=== PATIENT | male | born 1940 | race Caucasian/White ===

== ENCOUNTER → 2016-09-06 | Outpatient (CLI) | payer MEDICARE, OTHER ==
[~2016-09-06] MED LIST: ALLERGY SHOT; AMX500CIP PO; FEXO30TA PO; HCTZ12.5T PO; HYDR-3454 PO; LISI5TAB14 PO
--- OUTSIDE RECORDS SUMMARY | 2016-09-06 12:00 | XMS REPORT | Continuity of Care Document ---
Author Author [facility] Organization [facility] Address Unknown Phone Unavailable Care Team Providers Care Water Commissioner Name Role Phone TONA GODFREY MD PCP Insurance Providers Payer Name Policy Number Subscriber Name Relationship Wps Medicare [id number] Manolo Stacy 18 Self / Same As Patient [facility] [id number] Manolo Stacy 18 Self / Same As Patient Advance Directives Directive Response Recorded Date/Time Advance Directives No 07/16/16 10:57am Health Care Power of Vp Strategic Partnerships No 07/16/16 10:57am Organ Donor No 07/16/16 10:57am Resuscitation Status Full Code 07/16/16 10:57am Problems No problem information available. Medications Current Home Medications Medication Dose Units Route Directions Days/Qty Instructions Start Date Lisinopril (Lisinopril 5MG) 5 Mg 5 Mg Oral Daily 11/15/14 Hydrochlorothiazide 12.5 Mg 12.5 Mg Oral Daily 11/15/14 Amoxicillin 500 Mg 500 Mg Oral Four Times Daily 11/15/14 Fexofenadine Hcl 30 Mg 30 Mg Oral As Needed as needed for Congestion 11/20/14 [Allergy Shot] Weekly 11/20/14 Hydrocodone Bit/Acetaminophen 1 Each 1-2 Tab Oral Every 4-6HRS as needed for Pain 30 11/20/14 Social History Social History Problem Response Recorded Date/Time Alcohol Use Denies Use 11/20/2014 12:35pm Recreational Drug Use No 11/20/2014 12:35pm Recent Foreign Travel No 07/16/2016 10:58am Recent Infectious Disease Exposure No 07/16/2016 10:58am Sexually Transmitted Disease No 11/20/2014 12:35pm HIV/AIDS No 11/20/2014 12:35pm Sexually Transmitted Disease No 11/20/2014 12:35pm Hospital Discharge Instructions No hospital discharge instructions. Plan of Care Discharge Date 07/16/16 11:38am Instructions/Education Provided DR. ZHOU-[facility] EP[facility] INST Prescriptions See Medication Section Functional Status No functional status results. Allergies, Adverse Reactions, Alerts Allergen Type Severity Reaction Status Last Updated diphenhydramine ([id number]) Allergy Unknown SWELLING, FLUSHING, SWALLOWING PROBLEMS Active 11/15/14 Immunizations No immunization records. Vital Signs Acute Vital Signs Vital Response Date/Time Temperature (Fahrenheit) 97.3 degrees F (97.6 - 99.5) 07/16/2016 11:03am Temperature (Calculated Celsius) 36.96168 degrees C (36.4 - 37.5) 07/16/2016 11:03am Temperature Source Tympanic 07/16/2016 11:03am Pulse Rate (adult) 70 bpm (60 - 90) 07/16/2016 11:36am Respiratory Rate 16 bpm (12 - 24) 07/16/2016 11:36am O2 Sat by Pulse Oximetry 99 % (88 - 100) 07/16/2016 11:03am Blood Pressure 175/94 mm Hg 07/16/2016 11:36am Blood Pressure Mean 121 mm Hg 07/16/2016 11:03am Pain Numeric Pain Scale 3 07/16/2016 11:36am Height (Feet) 6 feet 07/16/2016 11:02am Height (Inches) 1.00 inches 07/16/2016 11:02am Height (Calculated Centimeters) 185.065862 cm 07/16/2016 11:02am Weight (Pounds) 250 pounds 07/16/2016 11:02am Weight (Ounces) 0.0 oz 07/16/2016 11:02am Weight (Calculated Grams) 711249.09 gm 07/16/2016 11:02am Weight (Calculated Kilograms) 113.731030 kilograms 07/16/2016 11:02am Calculated BMI 33.0 07/16/2016 11:02am Results No known relevant diagnostic tests, laboratory data and/or discharge summary. Procedures No known history of procedures. Encounters Encounter Location Arrival/Admit Date Discharge/Depart Date Attending Provider Departed Clinic [facility] 07/16/16 10:46am 07/16/16 11: 38am GONZALEZ ZHOU MD
--- NOTE | 2016-09-07 11:35 | ECHOCARDIOGRAPHY REPORT ---
PROCEDURE PHYSICIAN: NORTH FISHER DATE OF PROCEDURE: 09/06/2015 TWO DIMENSIONAL ECHOCARDIOGRAM REPORT PRIMARY PHYSICIAN: OTHER PHYSICIAN: REFERRING PHYSICIAN: Dr. Linn Hernández ORDERING PHYSICIAN: INDICATION FOR THE PROCEDURE: Hypertension, dyspnea. MEASUREMENTS DERIVED VALUES LV DIAMETER (LAX) NORMALS NORMALS Diastolic 3.9 (3.6-5.2) Eject. Fract. 60% (60%+/-6%) Systolic (2.3-3.9) Diastolic Vol. % Shortening (0.22-0.42) Systolic Vol. Aortic Root IVS THICKNESS Diastolic 1.2 (0.6-1.1) LVPW THICKNESS Diastolic 1.2 (0.6-1.1) LA DIAMETER Systolic 2.9 (2.1-3.7) FINDINGS: 1. Technical quality is good. 2. The left ventricle is normal in size with mild left ventricular hypertrophy noted diffusely. Systolic function appeared to be normal. Estimated ejection fraction is 60%. 3. The left atrium is normal in size. No clot or thrombus were seen within the left atrium. 4. The right atrium and right ventricle are normal in size. No clot or thrombus were seen within the right side. 5. Mitral valve is calcified with mild mitral regurgitation noted by color Doppler flow. No mitral valve prolapse. No mitral valve stenosis. Doppler across the mitral valve showed E:A reversal which is an expected finding for patient at age 75. 6. Aortic valve is trileaflet with normal opening and closing pattern. No significant aortic stenosis or regurgitation was seen. 7. Tricuspid valve is normal in morphology with mild tricuspid regurgitation noted by color Doppler flow. Doppler across tricuspid valve estimated pulmonary artery pressure of 19+ right atrial pressure. 8. Pulmonic valve is functioning normally. 9. No pericardial effusion. CONCLUSION: 1. Mild left ventricular hypertrophy with normal systolic function. Estimated ejection fraction is 60%. 2. Mild mitral and tricuspid regurgitation. 3. Estimated pulmonary artery pressure of 25 mmHg. Job ID: [id number] Dictated Date: 09/06/2016 17:27:16 Reproduction Technician Date: 09/07/2016 11:30:04 / evin
== END ==
LOC: CARD 11:57
PROVIDERS: ATTEND Internal Medicine Cardiovascular Disease
DX: I10 Essential (primary) hypertension (principal); R06.00 Dyspnea, unspecified; R53.83 Other fatigue
CPT/HCPCS: 93306

== ENCOUNTER → 2016-09-15 | Outpatient (CLI) | payer MEDICARE, OTHER ==
[~2016-09-15] VITALS: Ht 185.4 cm; Wt 111.6 kg
[~2016-09-15] MED LIST changes: +CATHETER FLUSH 10 ML SYR IV PRN; +REGADENOSON 0.4 MG/5 ML SYR (LEXISCAN) IV ONE
--- OUTSIDE RECORDS SUMMARY | 2016-09-15 12:08 | XMS REPORT | Continuity of Care Document ---
Author Author [facility] Organization [facility] Address Unknown Phone Unavailable Care Team Providers Care Sports Clerk Name Role Phone TONA GODFREY MD PCP Insurance Providers Payer Name Policy Number Subscriber Name Relationship Wps Medicare [id number] Manolo Stacy 19 Self / Same As Patient [facility] [id number] Manolo Stacy 19 Self / Same As Patient Advance Directives Directive Response Recorded Date/Time Advance Directives No 07/16/16 10:57am Health Care Power of Heel Splitter No 07/16/16 10:57am Organ Donor No 07/16/16 [...] Type Severity Reaction Status Last Updated diphenhydramine ([id number]) Allergy Unknown SWELLING, FLUSHING, SWALLOWING PROBLEMS Active 11/15/14 Immunizations No immunization records. Vital Signs Acute Vital Signs Vital Response Date/Time Temperature (Fahrenheit) 97.3 degrees F (97.6 - 99.5) 07/16/2016 11:03am Temperature (Calculated Celsius) 36.95571 degrees C (36.4 - 37.5) 07/16/2016 11:03am [...] 1.00 inches 07/16/2016 11:02am Height (Calculated Centimeters) 185.149672 cm 07/16/2016 11:02am Weight (Pounds) 250 pounds 07/16/2016 11:02am Weight (Ounces) 0.0 oz 07/16/2016 11:02am Weight (Calculated Grams) 367014.09 gm 07/16/2016 11:02am Weight (Calculated Kilograms) 113.291481 kilograms 07/16/2016 11:02am Calculated BMI 33.0 07/16/2016 11:02am Results No known relevant diagnostic tests, laboratory data and/or discharge summary. Procedures No known history of procedures. Encounters Encounter Location Arrival/Admit Date Discharge/Depart Date Attending Provider Departed Clinic [facility] 07/16/16 10:46am 07/16/16 11: 38am GONZALEZ ZHOU MD
[2016-09-15 13:12] VITALS: BP 190/94
[2016-09-15 13:16] VITALS: BP 156/80
--- NOTE | 2016-09-16 08:19 | STRESS TEST ---
PROCEDURE PHYSICIAN: NORTH FISHER DATE OF PROCEDURE: 09/15/2016 LEXISCAN MYOVIEW STRESS TEST REPORT: REFERRING PHYSICIAN: Dr. Linn Hernández DATE OF PROCEDURE: 09/15/2016. INDICATION FOR THE PROCEDURE: 1. Hypertension. 2. Shortness of breath. BASELINE HEART RATE: 72 BASELINE BLOOD PRESSURE: 119/94 BASELINE EKG: Sinus rhythm with no ischemic changes. IN SUMMARY: The patient was injected with 10.81 mCi of technetium 99 Myoview and the resting images were obtained. Then the patient received 0.4 mg of Lexiscan followed by 29.8 mCi of technetium 99 Myoview. Throughout the test, there were no EKG changes. The resting and stress images were reviewed and compared in the short axis, horizontal long axis, and vertical long axis views. Review of the images showed good radiotracer uptake with no ischemia or infarction on SPECT images. Breast attenuation affecting the quality of the images. SSS 3, SDS 1, TID value 0.95. On the gated images, the left ventricle appeared to be normal size with normal contractility. Calculated ejection fraction 69%. IN CONCLUSION: 1. The patient tolerated Lexiscan well. 2. Breast attenuation with typical female pattern. No significant ischemia or infarction on SPECT images. 3. Normal left ventricular size with normal contractility. Calculated ejection fraction 69%. Job ID: [id number] Dictated Date: 09/15/2016 18:26:55 Stationary Boiler Fireman Date: 09/16/2016 08:16:47 / frank
== END ==
LOC: CARD 12:06
PROVIDERS: ATTEND Internal Medicine Cardiovascular Disease
DX: I10 Essential (primary) hypertension (principal); R06.00 Dyspnea, unspecified; K92.9 Disease of digestive system, unspecified; R53.83 Other fatigue
CPT/HCPCS: 78452; 93017

== ENCOUNTER → 2016-09-17 | Outpatient (CLI) | payer MEDICARE, OTHER ==
[~2016-09-17] MED LIST changes: -CATHETER FLUSH 10 ML SYR IV PRN; -REGADENOSON 0.4 MG/5 ML SYR (LEXISCAN) IV ONE
--- OUTSIDE RECORDS SUMMARY | 2016-09-17 09:11 | XMS REPORT | Continuity of Care Document ---
Author Author [facility] Organization [facility] Address Unknown Phone Unavailable Care Team Providers Care Direct Marketing Coordinator Name Role Phone TONA GODFREY MD PCP Insurance Providers Payer Name Policy Number Subscriber Name Relationship Wps Medicare [id number] Manolo Stacy 19 Self / Same As Patient [facility] [id number] Manolo Stacy 19 Self / Same As Patient Advance Directives Directive Response Recorded Date/Time Advance Directives No 07/16/16 10:57am Health Care Power of Purchasing/Receiving No 07/16/16 10:57am Organ Donor No 07/16/16 [...] Type Severity Reaction Status Last Updated diphenhydramine ([id number]) Allergy Unknown SWELLING, FLUSHING, SWALLOWING PROBLEMS Active 11/15/14 Immunizations No immunization records. Vital Signs Acute Vital Signs Vital Response Date/Time Temperature (Fahrenheit) 97.3 degrees F (97.6 - 99.5) 07/16/2016 11:03am Temperature (Calculated Celsius) 36.37539 degrees C (36.4 - 37.5) 07/16/2016 11:03am [...] 1.00 inches 07/16/2016 11:02am Height (Calculated Centimeters) 185.067383 cm 07/16/2016 11:02am Weight (Pounds) 250 pounds 07/16/2016 11:02am Weight (Ounces) 0.0 oz 07/16/2016 11:02am Weight (Calculated Grams) 492424.09 gm 07/16/2016 11:02am Weight (Calculated Kilograms) 113.607536 kilograms 07/16/2016 11:02am Calculated BMI 33.0 07/16/2016 11:02am Results No known relevant diagnostic tests, laboratory data and/or discharge summary. Procedures No known history of procedures. Encounters Encounter Location Arrival/Admit Date Discharge/Depart Date Attending Provider Departed Clinic [facility] 07/16/16 10:46am 07/16/16 11: 38am GONZALEZ ZHOU MD
[2016-09-17 09:44] LABS: ALANINE AMINOTRANSFERASE 32 U/L (0-55); ANION GAP 8 MMOL/L (5-14); ASPARTATE AMINO TRANSFERASE 23 U/L (5-34); BILIRUBIN,TOTAL 0.9 MG/DL (0.1-1.0); BLOOD UREA NITROGEN 23 MG/DL (7-18); BUN/CREATININE RATIO 20; CARBON DIOXIDE 27 MMOL/L (21-32); CHLORIDE 106 MMOL/L (98-107); CHOLESTEROL 235 MG/DL (< 200); CREATININE SERUM 1.15 MG/DL (0.60-1.30); DIRECT LDL 166 MG/DL (1-129); GFR ESTIMATED > 60; GLUCOSE 116 MG/DL (70-105); POTASSIUM 4.3 MMOL/L (3.6-5.0); SODIUM 141 MMOL/L (135-145); TOTAL PROTEIN 6.7 G/DL (6.4-8.2); TRIGLYCERIDES 162 MG/DL (<150); VLDL CHOLESTEROL 32 MG/DL (5-40)
== END ==
LOC: LAB 09:08
PROVIDERS: ATTEND Internal Medicine Cardiovascular Disease
DX: I10 Essential (primary) hypertension (principal); R06.00 Dyspnea, unspecified; K92.9 Disease of digestive system, unspecified; R53.83 Other fatigue
CPT/HCPCS: 36415; 80053; 80061

== ENCOUNTER → 2016-10-01 | Outpatient (CLI) | payer MEDICARE, OTHER ==
--- OUTSIDE RECORDS SUMMARY | 2016-10-01 11:57 | XMS REPORT | Continuity of Care Document ---
Author Author [facility] Organization [facility] Address Unknown Phone Unavailable Care Team Providers Care Senior Maintenance Technician Name Role Phone TONA GODFREY MD PCP Insurance Providers Payer Name Policy Number Subscriber Name Relationship Wps Medicare [id number] Manolo Stacy 19 Self / Same As Patient [facility] [id number] Manolo Stacy 19 Self / Same As Patient Advance Directives Directive Response Recorded Date/Time Advance Directives No 07/16/16 10:57am Health Care Power of Caustic Loader No 07/16/16 10:57am Organ Donor No 07/16/16 [...] Type Severity Reaction Status Last Updated diphenhydramine ([id number]) Allergy Unknown SWELLING, FLUSHING, SWALLOWING PROBLEMS Active 11/15/14 Immunizations No immunization records. Vital Signs Acute Vital Signs Vital Response Date/Time Temperature (Fahrenheit) 97.3 degrees F (97.6 - 99.5) 07/16/2016 11:03am Temperature (Calculated Celsius) 36.83657 degrees C (36.4 - 37.5) 07/16/2016 11:03am [...] 1.00 inches 07/16/2016 11:02am Height (Calculated Centimeters) 185.413621 cm 07/16/2016 11:02am Weight (Pounds) 250 pounds 07/16/2016 11:02am Weight (Ounces) 0.0 oz 07/16/2016 11:02am Weight (Calculated Grams) 377339.09 gm 07/16/2016 11:02am Weight (Calculated Kilograms) 113.765094 kilograms 07/16/2016 11:02am Calculated BMI 33.0 07/16/2016 11:02am Results No known relevant diagnostic tests, laboratory data and/or discharge summary. Procedures No known history of procedures. Encounters Encounter Location Arrival/Admit Date Discharge/Depart Date Attending Provider Departed Clinic [facility] 07/16/16 10:46am 07/16/16 11: 38am GONZALEZ ZHOU MD
[2016-10-01] MEDS: IOHEXOL 350 MG/ML 100 ML (OMNIPAQUE 350) VIAL IV ONE (12:33)
[2016-10-01] MEDS: NS 100 ML (IVPB) BAG IV ONE (12:34)
[2016-10-01] MEDS: CATHETER FLUSH 10 ML SYR IV PRN (12:34)
--- NOTE | 2016-10-01 12:58 | Diagnostic Imaging Report ---
PROCEDURE: CT chest with contrast only. TECHNIQUE: Multiple contiguous axial images were obtained through the chest after administration of intravenous contrast. INDICATION: Shortness of breath. Mild chest pain. History of lung CA. COMPARISON: Comparison with 07/13/2011. FINDINGS: Contrast was given via the left arm. There is again noted left subclavian vein stenosis with diffuse collateral flow. The superior vena cava does opacify. There is good opacification of the aorta and pulmonary arteries. The pulmonary artery show several filling defects in the right lower lobe consistent with pulmonary emboli. Aorta appears normal. There is no mediastinal or hilar adenopathy of pathologic size. There is noted scarring in the left lung apex consistent with previous lung cancer. No masses are present. Left lower lung and right lung are clear. No pleural effusions or pericardial effusion. Bone windows show no blastic or lytic lesions. Degenerative changes noted in the thoracic spine. The adrenal glands are not enlarged. IMPRESSION: 1. 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 2. Scarring in the left lung apex unchanged. 3. Pulmonary emboli are present within the right lower lobe. CRITICAL FINDING. Report was called and faxed to Catherine at office of Dr. Hernández @ 12:54 PM/ronny. Dictated by: Dictated on workstation # [id number]
== END ==
LOC: RAD 11:54
PROVIDERS: ATTEND Family Medicine
DX: I26.99 Other pulmonary embolism without acute cor pulmonale (principal); Z85.118 Personal history of other malignant neoplasm of bronchus and lung
CPT/HCPCS: 71260

== ENCOUNTER → 2016-10-05 | Outpatient (CLI) | payer MEDICARE, OTHER ==
--- OUTSIDE RECORDS SUMMARY | 2016-10-05 08:00 | XMS REPORT | Continuity of Care Document ---
Author Author [facility] Organization [facility] Address Unknown Phone Unavailable Care Team Providers Care City Councilman Name Role Phone TONA GODFREY MD PCP Insurance Providers Payer Name Policy Number Subscriber Name Relationship Wps Medicare [id number] Manolo Stacy 19 Self / Same As Patient [facility] [id number] Manolo Stacy 19 Self / Same As Patient Advance Directives Directive Response Recorded Date/Time Advance Directives No 07/16/16 10:57am Health Care Power of First Cook No 07/16/16 10:57am Organ Donor No 07/16/16 [...] Type Severity Reaction Status Last Updated diphenhydramine ([id number]) Allergy Unknown SWELLING, FLUSHING, SWALLOWING PROBLEMS Active 11/15/14 Immunizations No immunization records. Vital Signs Acute Vital Signs Vital Response Date/Time Temperature (Fahrenheit) 97.3 degrees F (97.6 - 99.5) 07/16/2016 11:03am Temperature (Calculated Celsius) 36.26363 degrees C (36.4 - 37.5) 07/16/2016 11:03am [...] 1.00 inches 07/16/2016 11:02am Height (Calculated Centimeters) 185.452206 cm 07/16/2016 11:02am Weight (Pounds) 250 pounds 07/16/2016 11:02am Weight (Ounces) 0.0 oz 07/16/2016 11:02am Weight (Calculated Grams) 102509.09 gm 07/16/2016 11:02am Weight (Calculated Kilograms) 113.926634 kilograms 07/16/2016 11:02am Calculated BMI 33.0 07/16/2016 11:02am Results No known relevant diagnostic tests, laboratory data and/or discharge summary. Procedures No known history of procedures. Encounters Encounter Location Arrival/Admit Date Discharge/Depart Date Attending Provider Departed Clinic [facility] 07/16/16 10:46am 07/16/16 11: 38am GONZALEZ ZHOU MD
--- NOTE | 2016-10-05 09:03 | Diagnostic Imaging Report ---
INDICATION: Dyspnea, known pulmonary embolus. COMPARISON: None. TECHNIQUE: The bilateral lower extremity deep venous system was interrogated from the common femoral vein through the popliteal vein. These images were assessed for grayscale appearance, color and spectral Doppler blood flow, compression, and augmentation. FINDINGS: There is no evidence of intraluminal filling defect. Normal compression and augmentation is noted throughout. Soft tissues are unremarkable. IMPRESSION: 1. No sonographic evidence of deep venous thrombosis in the bilateral lower extremities. Dictated by: Dictated on workstation # [id number]
== END ==
LOC: RAD 07:57
PROVIDERS: ATTEND Nurse Practitioner Family
DX: I26.99 Other pulmonary embolism without acute cor pulmonale (principal)
CPT/HCPCS: 93306; 93970

== ENCOUNTER → 2016-10-05 | Outpatient (CLI) | payer MEDICARE, OTHER ==
--- OUTSIDE RECORDS SUMMARY | 2016-10-05 13:43 | XMS REPORT | Continuity of Care Document ---
Author Author [facility] Organization [facility] Address Unknown Phone Unavailable Care Team Providers Care Quality Systems Technician Name Role Phone TONA GODFREY MD PCP Insurance Providers Payer Name Policy Number Subscriber Name Relationship Wps Medicare [id number] Manolo Stacy 19 Self / Same As Patient [facility] [id number] Manolo Stacy 19 Self / Same As Patient Advance Directives Directive Response Recorded Date/Time Advance Directives No 07/16/16 10:57am Health Care Power of Nurse Receptionist No 07/16/16 10:57am Organ Donor No 07/16/16 [...] Type Severity Reaction Status Last Updated diphenhydramine ([id number]) Allergy Unknown SWELLING, FLUSHING, SWALLOWING PROBLEMS Active 11/15/14 Immunizations No immunization records. Vital Signs Acute Vital Signs Vital Response Date/Time Temperature (Fahrenheit) 97.3 degrees F (97.6 - 99.5) 07/16/2016 11:03am Temperature (Calculated Celsius) 36.85052 degrees C (36.4 - 37.5) 07/16/2016 11:03am [...] 1.00 inches 07/16/2016 11:02am Height (Calculated Centimeters) 185.608351 cm 07/16/2016 11:02am Weight (Pounds) 250 pounds 07/16/2016 11:02am Weight (Ounces) 0.0 oz 07/16/2016 11:02am Weight (Calculated Grams) 684159.09 gm 07/16/2016 11:02am Weight (Calculated Kilograms) 113.512048 kilograms 07/16/2016 11:02am Calculated BMI 33.0 07/16/2016 11:02am Results No known relevant diagnostic tests, laboratory data and/or discharge summary. Procedures No known history of procedures. Encounters Encounter Location Arrival/Admit Date Discharge/Depart Date Attending Provider Departed Clinic [facility] 07/16/16 10:46am 07/16/16 11: 38am GONZALEZ ZHOU MD
--- NOTE | 2016-10-07 07:56 | ECHOCARDIOGRAPHY REPORT ---
PROCEDURE PHYSICIAN: NORTH FISHER DATE OF PROCEDURE: 10/05/2016 TWO DIMENSIONAL ECHOCARDIOGRAM REPORT PRIMARY PHYSICIAN: OTHER PHYSICIAN: REFERRING PHYSICIAN: Dr. Hernández ORDERING PHYSICIAN: INDICATION FOR THE PROCEDURE: MEASUREMENTS DERIVED VALUES LV DIAMETER (LAX) NORMALS NORMALS Diastolic 5.7 (3.6-5.2) Eject. Fract. 60% (60%+/-6%) Systolic (2.3-3.9) Diastolic Vol. % Shortening (0.22-0.42) Systolic Vol. Aortic Root IVS THICKNESS Diastolic 1.1 (0.6-1.1) LVPW THICKNESS Diastolic 1.1 (0.6-1.1) LA DIAMETER Systolic 3.1 (2.1-3.7) FINDINGS: 1. Technical quality is good. 2. The left ventricle is normal in size with normal contractility. Systolic function appeared to be normal. Estimated ejection fraction is 60%. 3. The left atrium is normal in size. No clot or thrombus were seen within the left atrium. 4. The right atrium and right ventricle are normal in size. No signs of right ventricular volume or pressure overload. 5. Mitral valve is normal in morphology with mild mitral regurgitation noted by color Doppler flow. No mitral valve prolapse. No mitral valve stenosis. 6. Aortic valve is trileaflet with normal opening and closing pattern. No significant aortic stenosis or regurgitation was seen. 7. Tricuspid valve is normal in morphology with mild tricuspid regurgitation noted by color Doppler flow. Doppler across tricuspid valve estimated pulmonary artery pressure of 20+ right atrial pressure. 8. Pulmonic valve is functioning normally. 9. No pericardial effusion. IN CONCLUSION: 1. Normal left ventricular size and systolic function. Estimated ejection fraction 60%. 2. Mild mitral and tricuspid regurgitation. 3. Estimated pulmonary artery pressure of 25 to 30 mmHg. Job ID: [id number] Dictated Date: 10/06/2016 16:45:38 Shop Firer/Fireman Date: 10/07/2016 07:53:07 / frank
== END ==
LOC: CARD 13:39
PROVIDERS: ATTEND Nurse Practitioner Family
DX: I26.99 Other pulmonary embolism without acute cor pulmonale (principal)
CPT/HCPCS: 93306

== ENCOUNTER 2017-11-29 20:39 | Emergency (ER) | payer MEDICARE, OTHER ==
[~2017-11-29] VITALS: Ht 185.4 cm; Wt 111.1 kg
--- OUTSIDE RECORDS SUMMARY | 2017-11-29 20:49 | XMS REPORT | CCD ---
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 Name Role Phone PP Unavailable CCM Unavailable Summary Purpose Interface Exchange Insurance Providers Payer name Policy type / Coverage type Covered alliance party ID Effective Begin Date Effective End Date [employer] [employer] Medicare Part B [id number] 2017 Unknown Cigna Medicare Part B [id number] 2017 Unknown Family history Brother Diagnosis Age At Onset Hypertension Unknown Father Diagnosis Age At Onset Heart disease Unknown Mother Diagnosis Age At Onset Stroke Unknown Sister Diagnosis Age At Onset No Known Diseases N/A Social History Social History Element Codes Description Effective Dates Marital status Unknown 12/24/2014 Number of children Unknown 3 12/24/[address]: 3279329 Quit over 10 years ago 12/24/2014 Number of years using tobacco Unknown 20 - 30 Quit in 1993, smoked 1-3 packs per day for 25 years 2014 Alcohol history Unknown occasionally drinks alcohol 12/24/2014 Allergies, Adverse Reactions, Alerts Allergies, Adverse Reactions, Alerts data not found Past Medical History Illness Codes Condition Status Onset Date Resolved Date Essential (primary) hypertension ICD-9: 401.1 ICD-10: I10 Active 04/27/2016 Unknown Pain in right hip ICD- 9: 719.45 ICD-10: M25.551 Active 12/01/2016 Unknown Varicose veins of bilateral lower extremities with pain ICD-9: 454.8 ICD-10: I83.813 Active 08/19/2017 Unknown Acute laryngopharyngitis ICD-9: 465.0 ICD-10: J06.0 Active 06/30/2017 Unknown Other allergic rhinitis ICD-9: 477.8 ICD-10: J30.89 Active 12/13/2016 Unknown Other malaise ICD-9: 780.79 ICD-10: R53.81 Active 06/30/2017 Unknown Other vitamin B12 deficiency anemias ICD-9: 281.1 ICD-10: D51.8 Active 08/19/2016 Unknown Vitamin B12 deficiency anemia due to intrinsic factor deficiency ICD-9: 281.0 ICD-10: D51.0 Active 04/27/2016 Unknown Laceration without foreign body of left hand, initial encounter ICD-9: 882.0 ICD-10: S61.412A Active 03/07/2017 Unknown Other acute sinusitis ICD-9: 461.8 ICD-10: J01.80 Active 12/13/2016 Unknown Cervicalgia ICD-9: 723.1 ICD-10: M54.2 Active 12/01/2016 Unknown Other pulmonary embolism without acute cor pulmonale ICD-9: 415.19 ICD-10: I26.99 Active 10/13/2016 Unknown Pain in left hip ICD-9 : 719.45 ICD-10: M25.552 Active 12/01/2016 Unknown Pulmonary Embolus Unknown Active 10/13/2016 Unknown Gastro-esophageal reflux disease without esophagitis ICD-9: 530.81 ICD-10: K21.9 Active 09/29/2016 Unknown Benign prostatic hyperplasia with lower urinary tract symptoms ICD-9: 600.01 ICD-10: N40.1 Active 08/30/2016 Unknown Other chest pain ICD-9 : 786.52 ICD-10: R07.89 Active 09/17/2015 Unknown Cellulitis of chest wall ICD-9: 682.2 ICD-10: L03.313 Active 07/12/2016 Unknown Low back pain ICD-9: 724.2 ICD-10: M54.5 Active 05/31/2016 Unknown Pain in thoracic spine ICD-9: 724.5 ICD-10: M54.6 Active 01/12/2015 Unknown Pain in right knee ICD -9: 719.46 ICD-10: M25.561 Active 01/18/2016 Unknown Acute recurrent maxillary sinusitis ICD-9: 461.0 ICD-10: J01.01 Active 09/17/2015 Unknown Unspecified abdominal pain ICD-9: 789.09 ICD-10: R10.9 Active 01/08/2015 Unknown ACUTE BRONCHITIS ICD-9 : 466.0 Active 02/18/2015 Unknown Back pain ICD-9: 724.5 Active 01/12/2015 Unknown Dysuria ICD-9: 788.1 Active 01/08/2015 Unknown Right sided abdominal pain ICD-9: 789.09 Active 01/08/2015 Unknown Allergies Unknown Active 12/24/2014 Unknown Claudication Unknown Active 12/24/2014 Unknown Plantar fasciitis ICD- 9: 728.71 Active 12/23/2014 Unknown Problems Condition Codes Effective Dates Condition Status Essential (primary) hypertension ICD-9: 401.1 ICD-10: I10 04/27/2016 Active Pain in right hip ICD- 9: 719.45 ICD-10: M25.551 12/01/2016 Active Varicose veins of bilateral lower extremities with pain ICD-9: 454.8 ICD-10: I83.813 08/19/2017 Active Acute laryngopharyngitis ICD-9: 465.0 ICD-10: J06.0 06/30/2017 Active Other allergic rhinitis ICD-9: 477.8 ICD-10: J30.89 12/13/2016 Active Other malaise ICD-9: 780.79 ICD-10: R53.81 06/30/2017 Active Other vitamin B12 deficiency anemias ICD-9: 281.1 ICD-10: D51.8 08/19/2016 Active Vitamin B12 deficiency anemia due to intrinsic factor deficiency ICD-9: 281.0 ICD-10: D51.0 04/27/2016 Active Laceration without foreign body of left hand, initial encounter ICD-9: 882.0 ICD-10: S61.412A 03/07/2017 Active Other acute sinusitis ICD-9: 461.8 ICD-10: J01.80 12/13/2016 Active Cervicalgia ICD-9: 723.1 ICD-10: M54.2 12/01/2016 Active Other pulmonary embolism without acute cor pulmonale ICD-9: 415.19 ICD-10: I26.99 10/13/2016 Active Pain in left hip ICD-9 : 719.45 ICD-10: M25.552 12/01/2016 Active Pulmonary Embolus Unknown 10/13/2016 Active Gastro-esophageal reflux disease without esophagitis ICD-9: 530.81 ICD-10: K21.9 09/29/2016 Active Benign prostatic hyperplasia with lower urinary tract symptoms ICD-9: 600.01 ICD-10: N40.1 08/30/2016 Active Other chest pain ICD-9 : 786.52 ICD-10: R07.89 09/17/2015 Active Cellulitis of chest wall ICD-9: 682.2 ICD-10: L03.313 07/12/2016 Active Low back pain ICD-9: 724.2 ICD-10: M54.5 05/31/2016 Active Pain in thoracic spine ICD-9: 724.5 ICD-10: M54.6 01/12/2015 Active Pain in right knee ICD -9: 719.46 ICD-10: M25.561 01/18/2016 Active Acute recurrent maxillary sinusitis ICD-9: 461.0 ICD-10: J01.01 09/17/2015 Active Unspecified abdominal pain ICD-9: 789.09 ICD-10: R10.9 01/08/2015 Active ACUTE BRONCHITIS ICD-9 : 466.0 02/18/2015 Active Back pain ICD-9: 724.5 01/12/2015 Active Dysuria ICD-9: 788.1 01/08/2015 Active Right sided abdominal pain ICD-9: 789.09 01/08/2015 Active Allergies Unknown 12/24/2014 Active Claudication Unknown 12/24/2014 Active Plantar fasciitis ICD- 9: 728.71 12/23/2014 Active Medications Medication Codes Instructions Start Date Stop Date Status Fill Instructions Xarelto 20 mg tablet RxNorm: 8301053 1 Tablet(s) PO daily 07/0807/02/2018 Active Augmentin 500 mg-125 mg tablet RxNorm: 324802 1 Tablet(s) PO TID 07/01/2017 07/10/2017 Inactive Augmentin 500 mg-125 mg tablet RxNorm: 719118 1 Tablet(s) PO TID 07/01/2017 06/30/2017 Inactive ceftriaxone 500 mg solution for injection RxNorm: 8306231 2 Inj 06/30/2017 06/30/2017 Inactive cyanocobalamin (vit B-12) 1,000 mcg/mL injection solution RxNorm: 179630 Milliliter(s) Inj 06/22/2017 06/22/2017 Inactive Bactrim DS 800 mg-160 mg tablet RxNorm: 473551 1 Tablet(s) PO BID 06/08/2017 06/14/2017 Inactive Flomax 0.4 mg capsule RxNorm: 239788 TAKE ONE CAPSULE BY MOUTH ONCE DAILY IN THE EVENING 05/30/2017 No Stop Date Active cyanocobalamin (vit B-12) 1,000 mcg/mL injection solution RxNorm: 134130 1 Milliliter(s) Inj 04/19/2017 04/19/2017 Inactive Xarelto 20 mg tablet RxNorm: 8351787 1 Tablet(s) PO daily 04/1807/07/2017 Inactive lisinopril 5 mg tablet RxNorm: 892163 TAKE 1 TABLET EVERY DAY 04/13/2017 04/07/2018 Active hydrochlorothiazide 12.5 mg tablet RxNorm: 426353 TAKE 1 TABLET EVERY DAY 04/13/2017 04/07/2018 Active Keflex 500 mg capsule RxNorm: 586122 1 Capsule(s) PO TID 201603/13/2017 Inactive cyanocobalamin (vit B-12) 1,000 mcg/mL injection solution RxNorm: 048299 Milliliter(s) Inj 01/20/2017 01/20/2017 Inactive Keflex 500 mg capsule RxNorm: 928453 1 Capsule(s) PO TID 201612/28/2016 Inactive Kenalog 40 mg/mL suspension for injection RxNorm: 4873901 Milliliter(s) Inj 12/13/2016 12/13/2016 Inactive Xarelto 20 mg tablet RxNorm: 1612497 1 Tablet(s) PO daily 12/0104/17/2017 Inactive cyanocobalamin (vit B-12) 1,000 mcg/mL injection solution RxNorm: 747927 1 Milliliter(s) Inj 12/01/2016 12/01/2016 Inactive cyanocobalamin (vit B-12) 1,000 mcg/mL injection solution RxNorm: 876999 1 Milliliter(s) Inj 2016 2016 Inactive Bactroban Nasal 2 % ointment RxNorm: 112870 1 Application NASAL BID 11/12/2016 No Stop Date Active Bactroban Nasal 2 % ointment RxNorm: 749277 1 Application NASAL BID 10/06/2016 11/11/2016 Inactive cyanocobalamin (vit B-12) 1,000 mcg/mL injection solution RxNorm: 517798 1 Milliliter(s) Inj 09/17/2016 09/17/2016 Inactive Flomax 0.4 mg capsule RxNorm: 872257 1 Capsule(s) PO QPM 201603/27/2017 Inactive cyanocobalamin (vit B-12) 1,000 mcg/mL injection solution RxNorm: 169751 1 Milliliter(s) Inj 08/20/2016 08/20/2016 Inactive cyanocobalamin (vit B-12) 1,000 mcg/mL injection solution RxNorm: 451219 Milliliter(s) Inj 07/23/2016 07/23/2016 Inactive Keflex 500 mg capsule RxNorm: 780818 1 Capsule(s) PO TID 201507/19/2016 Inactive cyanocobalamin (vit B-12) 1,000 mcg/mL injection solution RxNorm: 423765 Milliliter(s) Inj 06/23/2016 06/23/2016 Inactive cyanocobalamin (vit B-12) 1,000 mcg/mL injection solution RxNorm: 623391 1 Milliliter(s) Inj 06/01/2016 06/01/2016 Inactive cyanocobalamin (vit B-12) 1,000 mcg/mL injection solution RxNorm: 115503 Milliliter(s) Inj 05/14/2016 05/14/2016 Inactive cyanocobalamin (vit B-12) 1,000 mcg/mL injection solution RxNorm: 528660 Milliliter(s) Inj 04/28/2016 04/28/2016 Inactive prednisone 20 mg tablet RxNorm: 384597 2 Tablet(s) PO daily 01/21/2016 Inactive One tablet in the morning and one tablet in the afternoon for 3 days lisinopril 5 mg tablet RxNorm: 430828 1 Tablet(s) PO daily 02/12/2017 Inactive hydrochlorothiazide 12.5 mg tablet RxNorm: 060981 1 Tablet(s) PO daily 11/21/2015 02/12/2017 Inactive doxycycline hyclate 100 mg tablet RxNorm: 555766 1 Tablet(s) PO BID 09/18/2015 09/24/2015 Inactive acyclovir 800 mg tablet RxNorm: 783610 1 Tablet(s) PO TID 09/0108/31/2015 Inactive acyclovir 800 mg tablet RxNorm: 394616 1 Tablet(s) PO TID 09/0109/07/2015 Inactive Ativan 0.5 mg tablet RxNorm: 576373 1 Tablet(s) PO x1 dose before MRI 08/15/2015 No Stop Date Active lisinopril 5 mg tablet RxNorm: 551688 1 Tablet(s) PO daily 11/20/2015 Inactive hydrochlorothiazide 12.5 mg tablet RxNorm: 484268 1 Tablet(s) PO daily 06/17/2015 11/20/2015 Inactive hydrochlorothiazide 12.5 mg tablet RxNorm: 586341 1 Tablet(s) PO daily 06/13/2015 06/16/2015 Inactive lisinopril 5 mg tablet RxNorm: 085180 1 Tablet(s) PO daily 06/16/2015 Inactive tramadol 50 mg tablet RxNorm: 441408 Tablet(s) PO Q6 as needed 02/25/2015 03/26/2015 Inactive 1 or 2 tabs every 6 hr as needed tramadol 50 mg tablet RxNorm: 117004 Tablet(s) PO Q6 as needed 02/25/2015 02/24/2015 Inactive 1 or 2 tabs every 6 hr as needed Culturelle 10 billion cell capsule RxNorm: 568992 1 Capsule(s) PO BID 02/19/2015 03/20/2015 Inactive Take one capsule by mouth two times per day for 2 weeks then daily doxycycline hyclate 100 mg capsule RxNorm: 8583799 1 Capsule(s) PO BID 02/19/2015 02/25/2015 Inactive prednisone 20 mg tablet RxNorm: 460489 1 Tablet(s) PO BID 02/1902/21/2015 Inactive One tablet in the morning and one tablet in the afternoon for 3 days Voltaren 1 % topical gel RxNorm: 182294 4 Gram(s) TOP QID 01/1304/27/2016 Inactive fexofenadine 180 mg tablet RxNorm: 742576 1 Tablet(s) PO daily No Start Date Active Flonase Allergy Relief nasal RxNorm: 89825 nasal No Start Date Active Lipitor 20 mg tablet RxNorm: 982648 1 Tablet(s) PO QHS No Start Date Active Vitamin B-12 ER 1,000 mcg tablet,extended release RxNorm: 181639 1 Tablet(s) PO daily No Start Date Active lisinopril 5 mg tablet RxNorm: 762913 1 Tablet(s) PO daily No Start Date 06/12/2015 Inactive Bactroban Nasal 2 % ointment RxNorm: 110200 1 Application NASAL BID No Start Date 10/05/2016 Inactive Ativan 0.5 mg tablet RxNorm: 112532 1 Tablet(s) PO x1 dose before MRI No Start Date 08/14/2015 Inactive hydrochlorothiazide 12.5 mg tablet RxNorm: 532075 1 Tablet(s) PO daily No Start Date 06/12/2015 Inactive Xarelto 20 mg tablet RxNorm: 8050200 1 Tablet(s) PO daily -After 15 mg samples are taken No Start Date 11/30/2016 Inactive Medication Administered Medication Codes Instructions Start Date Status ceftriaxone 500 mg solution for injection RxNorm: 7509298 2 06/30/2017 No longer Active cyanocobalamin (vit B-12) 1,000 mcg/mL injection solution RxNorm: 921122 Milliliter 06/22/2017 No longer Active cyanocobalamin (vit B-12) 1,000 mcg/mL injection solution RxNorm: 739465 1Milliliter 04/19/2017 No longer Active cyanocobalamin (vit B-12) 1,000 mcg/mL injection solution RxNorm: 797775 Milliliter 01/20/2017 No longer Active Kenalog 40 mg/mL suspension for injection RxNorm: 2142075 Milliliter 12/13/2016 No longer Active cyanocobalamin (vit B-12) 1,000 mcg/mL injection solution RxNorm: 675979 1Milliliter 12/01/2016 No longer Active cyanocobalamin (vit B-12) 1,000 mcg/mL injection solution RxNorm: 171132 1Milliliter 2016 No longer Active cyanocobalamin (vit B-12) 1,000 mcg/mL injection solution RxNorm: 686470 1Milliliter 09/17/2016 No longer Active cyanocobalamin (vit B-12) 1,000 mcg/mL injection solution RxNorm: 929973 1Milliliter 08/20/2016 No longer Active cyanocobalamin (vit B-12) 1,000 mcg/mL injection solution RxNorm: 590102 Milliliter 07/23/2016 No longer Active cyanocobalamin (vit B-12) 1,000 mcg/mL injection solution RxNorm: 287463 Milliliter 06/23/2016 No longer Active cyanocobalamin (vit B-12) 1,000 mcg/mL injection solution RxNorm: 410958 1Milliliter 06/01/2016 No longer Active cyanocobalamin (vit B-12) 1,000 mcg/mL injection solution RxNorm: 040566 Milliliter 05/14/2016 No longer Active cyanocobalamin (vit B-12) 1,000 mcg/mL injection solution RxNorm: 968542 Milliliter 04/28/2016 No longer Active Immunizations Vaccine Codes Date Status Influenza CVX: 141 06/25/2014 completed Pneumococcal (Adult) CVX: 33 05/25/2013 completed Assessments Condition Codes Effective Dates Varicose veins of bilateral lower extremities with pain ICD- 10: I83.813 ICD-9: 454.8 08/19/2017 Essential (primary) hypertension ICD-10: I10 ICD-9: 401.1 08/19/2017 Pain in right hip ICD-10: M25.551 ICD-9: 719.45 08/19/2017 Other malaise ICD-10: R53.81 ICD-9: 780.79 06/30/2017 Other allergic rhinitis ICD-10: J30.89 ICD-9: 477.8 06/30/2017 Acute laryngopharyngitis ICD-10: J06.0 ICD-9: 465.0 06/30/2017 Other vitamin B12 deficiency anemias ICD-10: D51.8 ICD-9: 281.1 06/22/2017 Vitamin B12 deficiency anemia due to intrinsic factor deficiency ICD-10: D51.0 ICD-9: 281.0 04/19/2017 Laceration without foreign body of left hand, initial encounter ICD-10: S61.412A ICD-9: 882.0 03/07/2017 Other acute sinusitis ICD-10: J01.80 ICD-9: 461.8 12/13/2016 Other pulmonary embolism without acute cor pulmonale ICD-10 : I26.99 ICD-9: 415.19 12/01/2016 Cervicalgia ICD-10: M54.2 ICD-9: 723.1 12/01/2016 Pain in left hip ICD-10: M25.552 ICD-9: 719.45 12/01/2016 Gastro-esophageal reflux disease without esophagitis ICD-10 : K21.9 ICD-9: 530.81 09/29/2016 Other chest pain ICD-10: R07.89 ICD-9: 786.52 08/30/2016 Benign prostatic hyperplasia with lower urinary tract symptoms ICD-10: N40.1 ICD-9: 600.01 08/30/2016 Cellulitis of chest wall ICD-10: L03.313 ICD-9: 682.2 07/13/2016 Pain in thoracic spine ICD-10: M54.6 ICD-9: 724.5 06/01/2016 Low back pain ICD-10: M54.5 ICD-9: 724.2 06/01/2016 Pain in right knee ICD-10: M25.561 ICD-9: 719.46 01/19/2016 Unspecified abdominal pain ICD-10: R10.9 ICD-9: 789.09 09/18/2015 Acute recurrent maxillary sinusitis ICD-10: J01.01 ICD-9: 461.0 09/18/2015 ACUTE BRONCHITIS ICD-9: 466.0 02/19/2015 Back pain ICD-9: 724.5 02/10/2015 Dysuria ICD-9: 788.1 01/09/2015 Right sided abdominal pain ICD-9: 789.09 01/09/2015 Plantar fasciitis ICD-9: 728.71 2014 Reason For Visit Reason For Visit Effective Dates Notes hypertension 08/19/2017 left lower leg sinus congestion 06/30/2017 sores 03/07/2017 sinus congestion 12/13/2016 hypertension 12/01/2016 hypertension 10/13/2016 hypertension 09/29/2016 hypertension 08/30/2016 rash 07/13/2016 low back pain 06/01/2016 low back pain 04/28/2016 knee pain 01/19/2016 sinus congestion 09/18/2015 back pain 09/01/2015 cough 02/19/2015 back pain 02/10/2015 back pain 01/13/2015 dysuria 01/09/2015 foot pain 12/24/2014 Results Observation Observation Code Item Item Code Result Date C A/B FLU 0238999 Influenza A Scr Negative 07/01/2017 C A/B FLU 60030705 Influenza B Scr Negative 07/01/2017 Lipid Ord30 CHOL 206 mg/dL 06/08/2017 Lipid Ord30 HDL 34.0 mg/dl 06/08/2017 Lipid Ord30 TRIG 168 mg/dL 06/08/2017 Lipid Ord30 LDL 138 mg/dL 06/08/2017 Lipid Ord30 C/HDL 6.1 Ratio 06/08/2017 Hepatic Ief820 ALBUMIN 4.1 g/dL 06/08/2017 Hepatic Ntu561 TPRO 6.7 g/dL 06/08/2017 Hepatic Lsh628 GLOB 2.6 g/dL 06/08/2017 Hepatic Exd734 A/G Ratio 1.5 Ratio 06/08/2017 Hepatic Xbt870 ALK PHOS 81 U/L 06/08/2017 Hepatic Fbd688 ALT(SGPT) 28 U/L 06/08/2017 Hepatic Fdw611 AST(SGOT) 22 U/L 06/08/2017 Hepatic Bbb635 BILI T 0.8 mg/dL 06/08/2017 Hepatic Cxn066 BILI D 0.1 mg/dL 06/08/2017 Hepatic Emf388 BILI I 0.7 mg/dL 06/08/2017 UA 57312 Specific [place] 1.020 DateTime(Free Text in ) UA 06745 PH 6.5 DateTime(Free Text in ) UA 24573 Protein neg DateTime(Free Text in ) UA 68578 Blood neg DateTime(Free Text in ) UA 22357 Bilirubin neg DateTime(Free Text in ) UA 43957 Ketones neg DateTime(Free Text in Octima) UA 02326 Urobilinogen 0.2 DateTime(Free Text in Aprima) UA 98718 Nitrite neg DateTime(Free Text in ) UA 49115 Leukocytes neg DateTime(Free Text in ) Review of Systems System Result Effective Dates Constitutional No recent illness 2017 Constitutional No fatigue 08/19/2017 Ears/Nose/Throat/Neck No dental pain Ears/Nose/Throat/Neck No dizziness 2017 Ears/Nose/Throat/Neck No dysphagia 2017 Ears/Nose/Throat/Neck No headache 2017 Ears/Nose/Throat/Neck No hearing loss Ears/Nose/Throat/Neck No nasal allergies 08/19/2017 Ears/Nose/Throat/Neck No sore throat Ears/Nose/Throat/Neck No postnasal drip 08/19/2017 Ears/Nose/Throat/Neck No sinus congestion 08/19/2017 Cardiovascular No chest pain/pressure Cardiovascular No dyspnea 08/19/2017 Cardiovascular No edema 08/19/2017 Cardiovascular No fatigue 08/19/2017 Cardiovascular hypertension 08/19/2017 Respiratory No asthma 08/19/2017 Respiratory No chest tightness 2017 Respiratory No cough 08/19/2017 Gastrointestinal No abdominal pain 2017 Gastrointestinal No gas and bloating Musculoskeletal stiffness 08/19/2017 Musculoskeletal back pain 08/19/2017 Neurologic No dizziness 08/19/2017 Neurologic No headache 08/19/2017 Neurologic No neck pain 08/19/2017 Neurologic No syncope 08/19/2017 Psychiatric No anxiety 08/19/2017 Psychiatric No depression 08/19/2017 Dermatologic No rash 08/19/2017 Dermatologic No scar 08/19/2017 Dermatologic pigmentation change 2017 Musculoskeletal joint complaint 2017 Constitutional recent illness 06/30/2017 Constitutional chills 06/30/2017 Constitutional No diaphoresis 06/30/2017 Constitutional fever 06/30/2017 Eyes No eye erythema 06/30/2017 Ears/Nose/Throat/Neck nasal allergies Ears/Nose/Throat/Neck nasal discharge Ears/Nose/Throat/Neck postnasal drip Ears/Nose/Throat/Neck sinus congestion Ears/Nose/Throat/Neck sore throat 2016 Cardiovascular No chest pain/pressure Cardiovascular No dyspnea 06/30/2017 Respiratory No chest congestion 2016 Respiratory cough 06/30/2017 Respiratory No dyspnea 06/30/2017 Gastrointestinal No constipation 2016 Gastrointestinal No diarrhea 06/30/2017 Gastrointestinal No nausea 06/30/2017 Gastrointestinal No vomiting 06/30/2017 Dermatologic No rash 06/30/2017 Neurologic No alteration of consciousness 06/30/2017 Neurologic No mental status change 2016 Dermatologic sores 03/07/2017 Constitutional No recent illness 2016 Constitutional No anorexia 03/07/2017 Constitutional No night sweats 2016 Constitutional No chills 03/07/2017 Constitutional No diaphoresis 03/07/2017 Constitutional No fatigue 03/07/2017 Constitutional No fever 03/07/2017 Constitutional No insomnia 03/07/2017 Constitutional No malaise 03/07/2017 Constitutional No weight loss 03/07/2017 Constitutional No weight gain 03/07/2017 Constitutional recent illness 12/13/2016 Constitutional No chills 12/13/2016 Constitutional No diaphoresis 12/13/2016 Constitutional No fever 12/13/2016 Eyes No eye erythema 12/13/2016 Ears/Nose/Throat/Neck nasal allergies Ears/Nose/Throat/Neck nasal discharge Ears/Nose/Throat/Neck postnasal drip Ears/Nose/Throat/Neck sinus congestion Cardiovascular No chest pain/pressure Cardiovascular No dyspnea 12/13/2016 Respiratory No chest congestion 2016 Respiratory cough 12/13/2016 Respiratory No dyspnea 12/13/2016 Gastrointestinal No abdominal pain 2016 Dermatologic No rash 12/13/2016 Neurologic No alteration of consciousness 12/13/2016 Neurologic No mental status change 2016 Eyes No blindness 12/01/2016 Cardiovascular No chest pain/pressure 09/2016 Cardiovascular No dyspnea 12/01/2016 Respiratory cough 12/01/2016 Respiratory dyspnea on exertion 2016 Gastrointestinal No abdominal pain 2016 Musculoskeletal stiffness 12/01/2016 Musculoskeletal No swelling 12/01/2016 Musculoskeletal muscle weakness 2016 Musculoskeletal myalgias 12/01/2016 Neurologic No alteration of consciousness 12/01/2016 Neurologic No mental status change 2016 Psychiatric No anxiety 12/01/2016 Psychiatric No depression 12/01/2016 Hematologic/Lymphatic pulmonary embolus 12/01/2016 Constitutional No recent illness 2016 Constitutional No fatigue 12/01/2016 Constitutional No fever 12/01/2016 Musculoskeletal joint complaint 2016 Musculoskeletal arthralgia(s) 12/01/2016 Constitutional recent illness 10/13/2016 Eyes No blindness 10/13/2016 Cardiovascular No chest pain/pressure Cardiovascular No dyspnea 10/13/2016 Respiratory cough 10/13/2016 Gastrointestinal No abdominal pain 2016 Musculoskeletal No stiffness 10/13/2016 Musculoskeletal No swelling 10/13/2016 Musculoskeletal No muscle weakness 2016 Musculoskeletal No myalgias 10/13/2016 Neurologic No alteration of consciousness 10/13/2016 Neurologic No mental status change 2016 Psychiatric No anxiety 10/13/2016 Psychiatric No depression 10/13/2016 Respiratory dyspnea on exertion 2016 Hematologic/Lymphatic pulmonary embolus 10/13/2016 Constitutional No recent illness 2016 Eyes No blindness 09/29/2016 Cardiovascular No chest pain/pressure 08/2016 Cardiovascular No dyspnea 09/29/2016 Respiratory cough 09/29/2016 Gastrointestinal No abdominal pain 2016 Neurologic No alteration of consciousness 09/29/2016 Neurologic No mental status change 2016 Psychiatric No anxiety 09/29/2016 Psychiatric No depression 09/29/2016 Musculoskeletal No stiffness 09/29/2016 Musculoskeletal No swelling 09/29/2016 Musculoskeletal No muscle weakness 2016 Musculoskeletal No myalgias 09/29/2016 Constitutional No recent illness 2016 Eyes No blindness 08/30/2016 Cardiovascular No chest pain/pressure Cardiovascular No dyspnea 08/30/2016 Respiratory No cough 08/30/2016 Gastrointestinal No abdominal pain 2016 Neurologic No alteration of consciousness 08/30/2016 Neurologic No mental status change 2016 Psychiatric No anxiety 08/30/2016 Psychiatric No depression 08/30/2016 Constitutional No recent illness 2015 Constitutional No chills 07/13/2016 Constitutional No fever 07/13/2016 Constitutional No diaphoresis 07/13/2016 Eyes No eye erythema 07/13/2016 Ears/Nose/Throat/Neck No nasal allergies 07/13/2016 Ears/Nose/Throat/Neck No nasal discharge 07/13/2016 Cardiovascular No chest pain/pressure Cardiovascular No dyspnea 07/13/2016 Respiratory No cough 07/13/2016 Respiratory No dyspnea 07/13/2016 Dermatologic sores 07/13/2016 Neurologic No alteration of consciousness 07/13/2016 Neurologic No mental status change 2015 Constitutional No recent illness 2015 Constitutional No fatigue 06/01/2016 Ears/Nose/Throat/Neck No dental pain 08/2015 Ears/Nose/Throat/Neck No dizziness 2015 Ears/Nose/Throat/Neck No dysphagia 2015 Ears/Nose/Throat/Neck No headache 2015 Ears/Nose/Throat/Neck No hearing loss 08/2015 Ears/Nose/Throat/Neck No nasal allergies 06/01/2016 Ears/Nose/Throat/Neck No sore throat 08/2015 Ears/Nose/Throat/Neck No postnasal drip 06/01/2016 Ears/Nose/Throat/Neck No sinus congestion 06/01/2016 Cardiovascular No chest pain/pressure 08/2015 Cardiovascular No dyspnea 06/01/2016 Cardiovascular No edema 06/01/2016 Cardiovascular No fatigue 06/01/2016 Cardiovascular hypertension 06/01/2016 Respiratory No asthma 06/01/2016 Respiratory No chest tightness 2015 Respiratory No cough 06/01/2016 Gastrointestinal No abdominal pain 2015 Gastrointestinal No gas and bloating 08/2015 Musculoskeletal back pain 06/01/2016 Neurologic No dizziness 06/01/2016 Neurologic No headache 06/01/2016 Neurologic No neck pain 06/01/2016 Neurologic No syncope 06/01/2016 Psychiatric No anxiety 06/01/2016 Psychiatric No depression 06/01/2016 Cardiovascular No chest pain/pressure Cardiovascular No dyspnea 04/28/2016 Cardiovascular No edema 04/28/2016 Cardiovascular No fatigue 04/28/2016 Respiratory No asthma 04/28/2016 Respiratory No chest tightness 2015 Respiratory No cough 04/28/2016 Gastrointestinal No abdominal pain 2015 Gastrointestinal No gas and bloating Musculoskeletal stiffness 04/28/2016 Musculoskeletal back pain 04/28/2016 Neurologic No dizziness 04/28/2016 Neurologic No headache 04/28/2016 Neurologic No neck pain 04/28/2016 Neurologic No syncope 04/28/2016 Psychiatric No anxiety 04/28/2016 Psychiatric No depression 04/28/2016 Constitutional No recent illness 2015 Constitutional No fatigue 04/28/2016 Ears/Nose/Throat/Neck No dental pain Ears/Nose/Throat/Neck No dizziness 2015 Ears/Nose/Throat/Neck No dysphagia 2015 Ears/Nose/Throat/Neck No headache 2015 Ears/Nose/Throat/Neck No hearing loss Ears/Nose/Throat/Neck No nasal allergies 04/28/2016 Ears/Nose/Throat/Neck No sore throat Ears/Nose/Throat/Neck No postnasal drip 04/28/2016 Ears/Nose/Throat/Neck No sinus congestion 04/28/2016 Cardiovascular hypertension 04/28/2016 Cardiovascular No chest pain/pressure Respiratory No cough 01/19/2016 Gastrointestinal No abdominal pain 2015 Psychiatric No anxiety 01/19/2016 Psychiatric No depression 01/19/2016 Constitutional No recent illness 2015 Eyes No eye erythema 01/19/2016 Cardiovascular No dyspnea 01/19/2016 Musculoskeletal joint complaint 2015 Neurologic No alteration of consciousness 01/19/2016 Neurologic No mental status change 2015 Constitutional recent illness 09/18/2015 Constitutional No anorexia 09/18/2015 Constitutional No night sweats 2015 Constitutional No chills 09/18/2015 Constitutional No diaphoresis 09/18/2015 Constitutional No fatigue 09/18/2015 Constitutional No fever 09/18/2015 Constitutional No insomnia 09/18/2015 Constitutional No malaise 09/18/2015 Constitutional No weight loss 09/18/2015 Constitutional No weight gain 09/18/2015 Eyes No eye erythema 09/18/2015 Eyes No eye discharge 09/18/2015 Ears/Nose/Throat/Neck No dizziness 2015 Ears/Nose/Throat/Neck headache 2015 Ears/Nose/Throat/Neck nasal allergies Ears/Nose/Throat/Neck nasal discharge Ears/Nose/Throat/Neck No otalgia 2015 Ears/Nose/Throat/Neck sinus congestion Ears/Nose/Throat/Neck No sore throat Cardiovascular No chest pain/pressure Cardiovascular No dyspnea 09/18/2015 Respiratory No productive sputum 2015 Respiratory No chest congestion 2015 Respiratory cough 09/18/2015 Gastrointestinal No constipation 2015 Gastrointestinal No diarrhea 09/18/2015 Gastrointestinal No vomiting 09/18/2015 Gastrointestinal No nausea 09/18/2015 Gastrointestinal abdominal pain 2015 Genitourinary/Nephrology dysuria 2015 Musculoskeletal back pain 09/18/2015 Dermatologic No rash 09/18/2015 Dermatologic No sores 09/18/2015 Neurologic No alteration of consciousness 09/18/2015 Constitutional recent illness 09/01/2015 Constitutional fatigue 09/01/2015 Cardiovascular No chest pain/pressure 08/2015 Cardiovascular No dyspnea 09/01/2015 Cardiovascular No edema 09/01/2015 Cardiovascular No fatigue 09/01/2015 Respiratory No asthma 09/01/2015 Respiratory No chest tightness 2015 Respiratory No cough 09/01/2015 Gastrointestinal No abdominal pain 2015 Gastrointestinal No gas and bloating 08/2015 Musculoskeletal stiffness 09/01/2015 Musculoskeletal back pain 09/01/2015 Neurologic No dizziness 09/01/2015 Neurologic No headache 09/01/2015 Neurologic No neck pain 09/01/2015 Neurologic No syncope 09/01/2015 Psychiatric No anxiety 09/01/2015 Psychiatric No depression 09/01/2015 Respiratory cough 02/19/2015 Respiratory productive sputum 02/19/2015 Constitutional recent illness 02/19/2015 Constitutional No chills 02/19/2015 Constitutional No night sweats 2014 Constitutional No diaphoresis 02/19/2015 Constitutional No fatigue 02/19/2015 Constitutional No fever 02/19/2015 Constitutional No insomnia 02/19/2015 Constitutional No malaise 02/19/2015 Constitutional No weight loss 02/19/2015 Constitutional No weight gain 02/19/2015 Ears/Nose/Throat/Neck sore throat 2014 Ears/Nose/Throat/Neck sinus congestion Ears/Nose/Throat/Neck postnasal drip Gastrointestinal No abdominal pain 2014 Gastrointestinal No constipation 2014 Gastrointestinal No diarrhea 02/19/2015 Cardiovascular No chest pain/pressure Cardiovascular No dyspnea 02/19/2015 Genitourinary/Nephrology No dysuria 02/19 Genitourinary/Nephrology No hematuria Musculoskeletal No back pain 02/19/2015 Dermatologic No rash 02/19/2015 Dermatologic No sores 02/19/2015 Constitutional No anorexia 02/19/2015 Ears/Nose/Throat/Neck No dizziness 2014 Ears/Nose/Throat/Neck No nasal allergies 02/19/2015 Ears/Nose/Throat/Neck No nasal discharge 02/19/2015 Ears/Nose/Throat/Neck No headache 2014 Musculoskeletal No stiffness 02/19/2015 Musculoskeletal No swelling 02/19/2015 Eyes vision change 02/19/2015 Neurologic No headache 02/19/2015 Neurologic No gait abnormality 2014 Neurologic No dizziness 02/19/2015 Neurologic No memory loss 02/19/2015 Neurologic No pain, back 02/19/2015 Psychiatric No anxiety 02/19/2015 Psychiatric No depression 02/19/2015 Constitutional recent illness 02/10/2015 Constitutional fatigue 02/10/2015 Cardiovascular No chest pain/pressure Cardiovascular No dyspnea 02/10/2015 Cardiovascular No edema 02/10/2015 Cardiovascular No fatigue 02/10/2015 Respiratory No asthma 02/10/2015 Respiratory No chest tightness 2014 Respiratory No cough 02/10/2015 Gastrointestinal No abdominal pain 2014 Gastrointestinal No gas and bloating Musculoskeletal stiffness 02/10/2015 Musculoskeletal back pain 02/10/2015 Neurologic No dizziness 02/10/2015 Neurologic No headache 02/10/2015 Neurologic No neck pain 02/10/2015 Neurologic No syncope 02/10/2015 Psychiatric No anxiety 02/10/2015 Psychiatric No depression 02/10/2015 Constitutional recent illness 01/13/2015 Constitutional fatigue 01/13/2015 Cardiovascular No chest pain/pressure Cardiovascular No dyspnea 01/13/2015 Cardiovascular No edema 01/13/2015 Cardiovascular No fatigue 01/13/2015 Respiratory No asthma 01/13/2015 Respiratory No cough 01/13/2015 Respiratory No chest tightness 2014 Gastrointestinal No abdominal pain 2014 Gastrointestinal No gas and bloating Psychiatric No anxiety 01/13/2015 Psychiatric No depression 01/13/2015 Neurologic No dizziness 01/13/2015 Neurologic No headache 01/13/2015 Neurologic No neck pain 01/13/2015 Neurologic No syncope 01/13/2015 Musculoskeletal back pain 01/13/2015 Musculoskeletal stiffness 01/13/2015 Constitutional recent illness 01/09/2015 Constitutional No fever 12/24/2014 Constitutional No chills 12/24/2014 Eyes photophobia 12/24/2014 Ears/Nose/Throat/Neck No headache 2014 Cardiovascular No chest pain/pressure Respiratory No chest tightness 2014 Respiratory No chest congestion 2014 Gastrointestinal No diarrhea 12/24/2014 Gastrointestinal No constipation 2014 Genitourinary/Nephrology No dysuria 12/24 Genitourinary/Nephrology No hematuria Genitourinary/Nephrology nocturia 2014 Musculoskeletal back pain 12/24/2014 Dermatologic No rash 12/24/2014 Dermatologic No sores 12/24/2014 Hematologic/Lymphatic No abnormal bleeding and bruising 12/24/2014 Physical Exam Exam Name System Name Item Name Status Result Effective Dates Notes Full Exam - General 1994 Constitutional general appearance Development: well developed 08/19/2017 None Full Exam - General 1994 Constitutional general appearance Stature/Body Habitus: normal body habitus 08/19/2017 None Full Exam - General 1994 Constitutional general appearance Nourishment: well nourished 08/19/2017 None Full Exam - General 1994 Constitutional general appearance Evidence of Distress: in no acute distress 08/19/2017 None Full Exam - General 1994 Eyes pupils and irises Overall: pupils equal, round, reactive to light and accomodation 08/19/2017 None Full Exam - General 1994 Respiratory auscultation Overall: breath sounds clear bilaterally 08/19/2017 None Full Exam - General 1994 Respiratory respiratory effort/rhythm Overall: no retractions 08/19/2017 None Full Exam - General 1994 Respiratory respiratory effort/rhythm Overall: normal rate 08/19/2017 None Full Exam - General 1994 Cardiovascular auscultation of heart Overall: regular rate 08/19/2017 None Full Exam - General 1994 Cardiovascular auscultation of heart Overall: normal heart sounds 08/19/2017 None Full Exam - General 1994 Abdomen abdominal exam Bowel sounds: a normal exam 08/19/2017 None Full Exam - General 1994 Abdomen abdominal exam Skin: a normal exam 08/19/2017 None Full Exam - General 1994 Abdomen abdominal exam Upper quadrant: non-tender to palpation 08/19/2017 None Full Exam - General 1994 Abdomen abdominal exam Upper quadrant: tender to palpation 08/19/2017 radiates to back Full Exam - General 1994 Abdomen abdominal exam Lower quadrant: non-tender to palpation 08/19/2017 None Full Exam - General 1994 Abdomen abdominal exam Lower quadrant: tender to palpation 08/19/2017 None Full Exam - General 1994 Abdomen abdominal exam Epigastric: non-tender to palpation 08/19/2017 None Full Exam - General 1994 Abdomen abdominal exam Suprapubic: tender to palpation 08/19/2017 None Full Exam - General 1994 Musculoskeletal digits and nails Nails: a normal exam 08/19/2017 None Full Exam - General 1994 Integument inspection of skin Overall: few scattered moles, no gross abnormalities 08/19/2017 None Full Exam - General 1994 Psychiatric orientation/consciousness Overall: oriented to person, place and time 08/19/2017 None Full Exam - General 1994 Psychiatric mood and affect Overall: normal mood and affect 08/19/2017 None Full Exam - General 1994 Musculoskeletal lower extremity Palpation - thigh: tenderness 08/19/2017 lateral hip Full Exam - ENT Constitutional general appearance Overall: well nourished 06/30/2017 None Full Exam - ENT Constitutional general appearance Overall: well developed 06/30/2017 None Full Exam - ENT Constitutional general appearance Overall: in no acute distress 06/30/2017 None Full Exam - ENT Ears/Nose/Throat otoscopic exam Overall: external auditory canals normal 06/30/2017 None Full Exam - ENT Ears/Nose/Throat otoscopic exam Left tympanic membrane: air -fluid level 06/30/2017 None Full Exam - ENT Ears/Nose/Throat otoscopic exam Right tympanic membrane: air-fluid level 06/30/2017 None Full Exam - ENT Ears/Nose/Throat lips/ teeth/gingiva Overall: benign lips 06/30/2017 None Full Exam - ENT Ears/Nose/Throat oropharynx Overall: oral mucosa clear 06/30/2017 None Full Exam - ENT Ears/Nose/Throat oropharynx Posterior Pharynx: clear post nasal drainage 06/30/2017 None Full Exam - ENT Ears/Nose/Throat oropharynx Posterior Pharynx: erythema 06/30/2017 None Full Exam - ENT Respiratory inspection Overall: no retractions 06/30/2017 None Full Exam - ENT Respiratory inspection Overall: normal rate None Full Exam - ENT Respiratory auscultation Overall: breath sounds clear bilaterally 06/30/2017 None Full Exam - ENT Cardiovascular auscultation of heart Rate: normal rate 06/30/2017 None Full Exam - ENT Cardiovascular auscultation of heart Rhythm: regular rhythm 06/30/2017 None Full Exam - ENT Lymphatic palpation of lymph nodes Overall: anterior cervical chain benign 06/30/2017 None Full Exam - ENT Lymphatic palpation of lymph nodes Overall: posterior cervical chain benign 06/30/2017 None Full Exam - ENT Neurologic mood and affect Overall: normal mood 06/30/2017 None Full Exam - ENT Neurologic mood and affect Overall: normal affect 06/30/2017 None Full Exam - ENT Neurologic orientation Overall: oriented to person, place and time 06/30/2017 None Full Exam - Dermatology Constitutional general appearance Overall: well nourished 03/07/2017 None Full Exam - Dermatology Constitutional general appearance Overall: well developed 03/07/2017 None Full Exam - Dermatology Constitutional general appearance Overall: in no acute distress 03/07/2017 None Full Exam - Dermatology Constitutional general appearance Overall: of normal body habitus 03/07/2017 None Full Exam - Dermatology Constitutional general appearance Overall: well groomed 03/07/2017 None Full Exam - Dermatology Psychiatric orientation Overall: oriented to person, place and time 03/07/2017 None Full Exam - Dermatology Integument insp & palp - left upper extremity Lesion: skin tear 03/07/2017 left hand 2cm x 1.5cm with granulation tissue and slight erythema Full Exam - ENT Constitutional general appearance Overall: well nourished 12/13/2016 None Full Exam - ENT Constitutional general appearance Overall: well developed 12/13/2016 None Full Exam - ENT Constitutional general appearance Overall: in no acute distress 12/13/2016 None Full Exam - ENT Ears/Nose/Throat otoscopic exam Overall: external auditory canals normal 12/13/2016 None Full Exam - ENT Ears/Nose/Throat otoscopic exam Left tympanic membrane: air -fluid level 12/13/2016 None Full Exam - ENT Ears/Nose/Throat otoscopic exam Right tympanic membrane: air-fluid level 12/13/2016 None Full Exam - ENT Ears/Nose/Throat nasal mucosa, septum, turbinates Drainage: clear 12/13/2016 None Full Exam - ENT Ears/Nose/Throat nasal mucosa, septum, turbinates Drainage: yellow 12/13/2016 None Full Exam - ENT Ears/Nose/Throat lips/ teeth/gingiva Overall: benign lips 12/13/2016 None Full Exam - ENT Ears/Nose/Throat oropharynx Posterior Pharynx: clear post nasal drainage 12/13/2016 None Full Exam - ENT Face and Head palpation Left maxillary sinus: tender 12/13/2016 None Full Exam - ENT Face and Head palpation Right maxillary sinus: tender 12/13/2016 None Full Exam - ENT Respiratory inspection Overall: no retractions 12/13/2016 None Full Exam - ENT Respiratory inspection Overall: normal rate None Full Exam - ENT Respiratory auscultation Overall: breath sounds clear bilaterally 12/13/2016 None Full Exam - ENT Cardiovascular auscultation of heart Overall: regular rate 12/13/2016 None Full Exam - ENT Cardiovascular auscultation of heart Overall: normal heart sounds 12/13/2016 None Full Exam - ENT Lymphatic palpation of lymph nodes Overall: anterior cervical chain benign 12/13/2016 None Full Exam - ENT Lymphatic palpation of lymph nodes Overall: posterior cervical chain benign 12/13/2016 None Full Exam - ENT Neurologic mood and affect Overall: normal mood 12/13/2016 None Full Exam - ENT Neurologic mood and affect Overall: normal affect 12/13/2016 None Full Exam - ENT Neurologic orientation Overall: oriented to person, place and time 12/13/2016 None Full Exam - General 1994 Constitutional general appearance Development: well developed 12/01/2016 None Full Exam - General 1994 Constitutional general appearance Stature/Body Habitus: normal body habitus 12/01/2016 None Full Exam - General 1994 Constitutional general appearance Nourishment: well nourished 12/01/2016 None Full Exam - General 1994 Constitutional general appearance Evidence of Distress: in no acute distress 12/01/2016 None Full Exam - General 1994 Eyes conjunctiva /eyelids Overall: conjunctiva clear 12/01/2016 None Full Exam - General 1994 Eyes conjunctiva /eyelids Overall: cornea clear 12/01/2016 None Full Exam - General 1994 Eyes conjunctiva /eyelids Overall: eyelids normal 12/01/2016 None Full Exam - General 1994 Respiratory palpation of chest Overall: normal excursion, no pain 12/01/2016 None Full Exam - General 1994 Respiratory auscultation Overall: breath sounds clear bilaterally 12/01/2016 None Full Exam - General 1994 Respiratory respiratory effort/rhythm Overall: no retractions 12/01/2016 None Full Exam - General 1994 Respiratory respiratory effort/rhythm Overall: normal rate 12/01/2016 None Full Exam - General 1994 Cardiovascular extremities Overall: no clubbing 12/01/2016 None Full Exam - General 1994 Cardiovascular auscultation of heart Overall: regular rate 12/01/2016 None Full Exam - General 1994 Cardiovascular auscultation of heart Overall: normal heart sounds 12/01/2016 None Full Exam - General 1994 Musculoskeletal lower extremity Inspection - knee: swelling 12/01/2016 None Full Exam - General 1994 Musculoskeletal lower extremity Palpation - knee: small effusion 12/01/2016 None Full Exam - General 1994 Musculoskeletal lower extremity ROM - knee: pain with flexion 12/01/2016 None Full Exam - General 1994 Integument inspection of skin Overall: no rash, lesions 12/01/2016 None Full Exam - General 1994 Psychiatric orientation/consciousness Overall: oriented to person, place and time 12/01/2016 None Full Exam - General 1994 Psychiatric mood and affect Overall: normal mood and affect 12/01/2016 None Full Exam - General 1994 Ears/Nose/Throat otoscopic exam Overall: tympanic membranes clear 12/01/2016 None Full Exam - General 1994 Ears/Nose/Throat otoscopic exam Overall: external auditory canals clear 12/01/2016 None Full Exam - General 1994 Ears/Nose/Throat oral cavity/pharynx/larynx Overall: oropharyngeal mucosa clear 12/01/2016 None Full Exam - General 1994 Ears/Nose/Throat oral cavity/pharynx/larynx Overall: no masses 12/01/2016 None Full Exam - General 1994 Ears/Nose/Throat oral cavity/pharynx/larynx Overall: oral mucosa clear 12/01/2016 None Full Exam - General 1994 Musculoskeletal head and neck Overall: head atraumatic 12/01/2016 None Full Exam - General 1994 Musculoskeletal head and neck Overall: TMJ benign 12/01/2016 None Full Exam - General 1994 Musculoskeletal head and neck Cervical Spine: tender 12/01/2016 over lateral neck on left, at insertion point of scalenes Full Exam - General 1994 Constitutional general appearance Development: well developed 10/13/2016 None Full Exam - General 1994 Constitutional general appearance Stature/Body Habitus: normal body habitus 10/13/2016 None Full Exam - General 1994 Constitutional general appearance Nourishment: well nourished 10/13/2016 None Full Exam - General 1994 Constitutional general appearance Evidence of Distress: in no acute distress 10/13/2016 None Full Exam - General 1994 Eyes conjunctiva /eyelids Overall: conjunctiva clear 10/13/2016 None Full Exam - General 1994 Eyes conjunctiva /eyelids Overall: cornea clear 10/13/2016 None Full Exam - General 1994 Eyes conjunctiva /eyelids Overall: eyelids normal 10/13/2016 None Full Exam - General 1994 Respiratory palpation of chest Overall: normal excursion, no pain 10/13/2016 None Full Exam - General 1994 Respiratory auscultation Overall: breath sounds clear bilaterally 10/13/2016 None Full Exam - General 1994 Respiratory respiratory effort/rhythm Overall: no retractions 10/13/2016 None Full Exam - General 1994 Respiratory respiratory effort/rhythm Overall: normal rate 10/13/2016 None Full Exam - General 1994 Cardiovascular extremities Overall: no clubbing 10/13/2016 None Full Exam - General 1994 Cardiovascular auscultation of heart Overall: regular rate 10/13/2016 None Full Exam - General 1994 Cardiovascular auscultation of heart Overall: normal heart sounds 10/13/2016 None Full Exam - General 1994 Musculoskeletal lower extremity Inspection - knee: swelling 10/13/2016 None Full Exam - General 1994 Musculoskeletal lower extremity Palpation - knee: small effusion 10/13/2016 None Full Exam - General 1994 Musculoskeletal lower extremity ROM - knee: pain with flexion 10/13/2016 None Full Exam - General 1994 Integument inspection of skin Overall: no rash, lesions 10/13/2016 None Full Exam - General 1994 Psychiatric orientation/consciousness Overall: oriented to person, place and time 10/13/2016 None Full Exam - General 1994 Psychiatric mood and affect Overall: normal mood and affect 10/13/2016 None Full Exam - General 1994 Constitutional general appearance Development: well developed 09/29/2016 None Full Exam - General 1994 Constitutional general appearance Stature/Body Habitus: normal body habitus 09/29/2016 None Full Exam - General 1994 Constitutional general appearance Nourishment: well nourished 09/29/2016 None Full Exam - General 1994 Constitutional general appearance Evidence of Distress: in no acute distress 09/29/2016 None Full Exam - General 1994 Eyes conjunctiva /eyelids Overall: conjunctiva clear 09/29/2016 None Full Exam - General 1994 Eyes conjunctiva /eyelids Overall: cornea clear 09/29/2016 None Full Exam - General 1994 Eyes conjunctiva /eyelids Overall: eyelids normal 09/29/2016 None Full Exam - General 1994 Respiratory palpation of chest Overall: normal excursion, no pain 09/29/2016 None Full Exam - General 1994 Respiratory auscultation Overall: breath sounds clear bilaterally 09/29/2016 None Full Exam - General 1994 Respiratory respiratory effort/rhythm Overall: no retractions 09/29/2016 None Full Exam - General 1994 Respiratory respiratory effort/rhythm Overall: normal rate 09/29/2016 None Full Exam - General 1994 Cardiovascular extremities Overall: no clubbing 09/29/2016 None Full Exam - General 1994 Cardiovascular auscultation of heart Overall: regular rate 09/29/2016 None Full Exam - General 1994 Cardiovascular auscultation of heart Overall: normal heart sounds 09/29/2016 None Full Exam - General 1995 Musculoskeletal lower extremity Inspection - knee: swelling 09/29/2016 None Full Exam - General 1994 Musculoskeletal lower extremity Palpation - knee: small effusion 09/29/2016 None Full Exam - General 1994 Musculoskeletal lower extremity ROM - knee: pain with flexion 09/29/2016 None Full Exam - General 1994 Integument inspection of skin Overall: no rash, lesions 09/29/2016 None Full Exam - General 1994 Psychiatric orientation/consciousness Overall: oriented to person, place and time 09/29/2016 None Full Exam - General 1994 Psychiatric mood and affect Overall: normal mood and affect 09/29/2016 None Full Exam - General 1994 Constitutional general appearance Development: well developed 08/30/2016 None Full Exam - General 1994 Constitutional general appearance Stature/Body Habitus: normal body habitus 08/30/2016 None Full Exam - General 1994 Constitutional general appearance Nourishment: well nourished 08/30/2016 None Full Exam - General 1994 Constitutional general appearance Evidence of Distress: in no acute distress 08/30/2016 None Full Exam - General 1994 Eyes conjunctiva /eyelids Overall: conjunctiva clear 08/30/2016 None Full Exam - General 1994 Eyes conjunctiva /eyelids Overall: cornea clear 08/30/2016 None Full Exam - General 1994 Eyes conjunctiva /eyelids Overall: eyelids normal 08/30/2016 None Full Exam - General 1994 Respiratory auscultation Overall: breath sounds clear bilaterally 08/30/2016 None Full Exam - General 1994 Respiratory respiratory effort/rhythm Overall: no retractions 08/30/2016 None Full Exam - General 1994 Respiratory respiratory effort/rhythm Overall: normal rate 08/30/2016 None Full Exam - General 1994 Cardiovascular auscultation of heart Overall: regular rate 08/30/2016 None Full Exam - General 1994 Cardiovascular auscultation of heart Overall: normal heart sounds 08/30/2016 None Full Exam - General 1994 Musculoskeletal lower extremity Inspection - knee: swelling 08/30/2016 None Full Exam - General 1994 Musculoskeletal lower extremity Palpation - knee: small effusion 08/30/2016 None Full Exam - General 1994 Musculoskeletal lower extremity ROM - knee: pain with flexion 08/30/2016 None Full Exam - General 1994 Integument inspection of skin Overall: no rash, lesions 08/30/2016 None Full Exam - General 1994 Psychiatric orientation/consciousness Overall: oriented to person, place and time 08/30/2016 None Full Exam - General 1994 Psychiatric mood and affect Overall: normal mood and affect 08/30/2016 None Full Exam - General 1994 Cardiovascular extremities Overall: no clubbing 08/30/2016 None Full Exam - General 1994 Respiratory palpation of chest Overall: normal excursion, no pain 08/30/2016 None Full Exam - Dermatology Constitutional general appearance Overall: well nourished 07/13/2016 None Full Exam - Dermatology Constitutional general appearance Overall: well developed 07/13/2016 None Full Exam - Dermatology Constitutional general appearance Overall: in no acute distress 07/13/2016 None Full Exam - Dermatology Eyes conjunctiva/ eyelids Overall: clear conjunctiva bilaterally 07/13/2016 None Full Exam - Dermatology Eyes conjunctiva/ eyelids Overall: normal eyelids 07/13/2016 None Full Exam - Dermatology Ears/Nose/Throat lips/teeth/gingiva Overall: benign lips 07/13/2016 None Full Exam - Dermatology Ears/Nose/Throat oropharynx Overall: clear oral mucosa 07/13/2016 None Full Exam - Dermatology Respiratory respiratory effort/rhythm Overall: no retractions 07/13/2016 None Full Exam - Dermatology Respiratory respiratory effort/rhythm Overall: normal rate 07/13/2016 None Full Exam - Dermatology Integument insp & palp - chest/axillae Lesion: papule 07/13/2016 None Full Exam - Dermatology Integument insp & palp - chest/axillae Location: on the mid chest 07/13/2016 None Full Exam - Dermatology Integument insp & palp - chest/axillae Color: erythematous 07/13/2016 None Full Exam - Dermatology Neurologic gait Overall: no ataxia, no unsteadiness 07/13/2016 None Full Exam - Dermatology Psychiatric orientation Overall: oriented to person, place and time 07/13/2016 None Full Exam - Dermatology Psychiatric mood and affect Overall: normal mood and affect 07/13/2016 None Full Exam - General 1994 Constitutional general appearance Development: well developed 06/01/2016 None Full Exam - General 1994 Constitutional general appearance Stature/Body Habitus: normal body habitus 06/01/2016 None Full Exam - General 1994 Constitutional general appearance Nourishment: well nourished 06/01/2016 None Full Exam - General 1994 Constitutional general appearance Evidence of Distress: in no acute distress 06/01/2016 None Full Exam - General 1994 Eyes pupils and irises Overall: pupils equal, round, reactive to light and accomodation 06/01/2016 None Full Exam - General 1994 Respiratory auscultation Overall: breath sounds clear bilaterally 06/01/2016 None Full Exam - General 1994 Respiratory respiratory effort/rhythm Overall: no retractions 06/01/2016 None Full Exam - General 1994 Respiratory respiratory effort/rhythm Overall: normal rate 06/01/2016 None Full Exam - General 1994 Cardiovascular auscultation of heart Overall: regular rate 06/01/2016 None Full Exam - General 1994 Cardiovascular auscultation of heart Overall: normal heart sounds 06/01/2016 None Full Exam - General 1994 Abdomen abdominal exam Bowel sounds: a normal exam 06/01/2016 None Full Exam - General 1994 Abdomen abdominal exam Skin: a normal exam 06/01/2016 None Full Exam - General 1994 Abdomen abdominal exam Upper quadrant: non-tender to palpation 06/01/2016 None Full Exam - General 1994 Abdomen abdominal exam Upper quadrant: tender to palpation 06/01/2016 radiates to back Full Exam - General 1994 Abdomen abdominal exam Lower quadrant: non-tender to palpation 06/01/2016 None Full Exam - General 1994 Abdomen abdominal exam Lower quadrant: tender to palpation 06/01/2016 None Full Exam - General 1994 Abdomen abdominal exam Epigastric: non-tender to palpation 06/01/2016 None Full Exam - General 1994 Abdomen abdominal exam Suprapubic: tender to palpation 06/01/2016 None Full Exam - General 1994 Musculoskeletal digits and nails Nails: a normal exam 06/01/2016 None Full Exam - General 1994 Musculoskeletal spine, ribs and pelvis Overall: ribs 06/01/2016 ttp over the lower portion of ribs on right side from spine to anterior chest Full Exam - General 1994 Integument inspection of skin Overall: few scattered moles, no gross abnormalities 06/01/2016 None Full Exam - General 1994 Psychiatric orientation/consciousness Overall: oriented to person, place and time 06/01/2016 None Full Exam - General 1994 Psychiatric mood and affect Overall: normal mood and affect 06/01/2016 None Full Exam - General 1994 Ears/Nose/Throat otoscopic exam Overall: tympanic membranes clear 06/01/2016 None Full Exam - General 1994 Ears/Nose/Throat otoscopic exam Overall: external auditory canals clear 06/01/2016 None Full Exam - General 1994 Ears/Nose/Throat oral cavity/pharynx/larynx Overall: oropharyngeal mucosa clear 06/01/2016 None Full Exam - General 1994 Ears/Nose/Throat oral cavity/pharynx/larynx Overall: no masses 06/01/2016 None Full Exam - General 1994 Ears/Nose/Throat oral cavity/pharynx/larynx Overall: oral mucosa clear 06/01/2016 None Full Exam - General 1994 Constitutional general appearance Development: well developed 04/28/2016 None Full Exam - General 1994 Constitutional general appearance Stature/Body Habitus: normal body habitus 04/28/2016 None Full Exam - General 1994 Constitutional general appearance Nourishment: well nourished 04/28/2016 None Full Exam - General 1994 Constitutional general appearance Evidence of Distress: in no acute distress 04/28/2016 None Full Exam - General 1994 Eyes pupils and irises Overall: pupils equal, round, reactive to light and accomodation 04/28/2016 None Full Exam - General 1994 Respiratory auscultation Overall: breath sounds clear bilaterally 04/28/2016 None Full Exam - General 1994 Respiratory respiratory effort/rhythm Overall: no retractions 04/28/2016 None Full Exam - General 1994 Respiratory respiratory effort/rhythm Overall: normal rate 04/28/2016 None Full Exam - General 1994 Cardiovascular auscultation of heart Overall: regular rate 04/28/2016 None Full Exam - General 1994 Cardiovascular auscultation of heart Overall: normal heart sounds 04/28/2016 None Full Exam - General 1994 Abdomen abdominal exam Bowel sounds: a normal exam 04/28/2016 None Full Exam - General 1994 Abdomen abdominal exam Skin: a normal exam 04/28/2016 None Full Exam - General 1994 Abdomen abdominal exam Upper quadrant: non-tender to palpation 04/28/2016 None Full Exam - General 1994 Abdomen abdominal exam Upper quadrant: tender to palpation 04/28/2016 radiates to back Full Exam - General 1994 Abdomen abdominal exam Lower quadrant: non-tender to palpation 04/28/2016 None Full Exam - General 1994 Abdomen abdominal exam Lower quadrant: tender to palpation 04/28/2016 None Full Exam - General 1994 Abdomen abdominal exam Epigastric: non-tender to palpation 04/28/2016 None Full Exam - General 1994 Abdomen abdominal exam Suprapubic: tender to palpation 04/28/2016 None Full Exam - General 1994 Musculoskeletal digits and nails Nails: a normal exam 04/28/2016 None Full Exam - General 1994 Musculoskeletal spine, ribs and pelvis Overall: ribs 04/28/2016 ttp over the lower portion of ribs on right side from spine to anterior chest Full Exam - General 1994 Integument inspection of skin Overall: few scattered moles, no gross abnormalities 04/28/2016 None Full Exam - General 1994 Psychiatric orientation/consciousness Overall: oriented to person, place and time 04/28/2016 None Full Exam - General 1994 Psychiatric mood and affect Overall: normal mood and affect 04/28/2016 None Full Exam - General 1994 Constitutional general appearance Development: well developed 01/19/2016 None Full Exam - General 1994 Constitutional general appearance Stature/Body Habitus: normal body habitus 01/19/2016 None Full Exam - General 1994 Constitutional general appearance Nourishment: well nourished 01/19/2016 None Full Exam - General 1994 Constitutional general appearance Evidence of Distress: in no acute distress 01/19/2016 None Full Exam - General 1994 Respiratory auscultation Overall: breath sounds clear bilaterally 01/19/2016 None Full Exam - General 1994 Respiratory respiratory effort/rhythm Overall: no retractions 01/19/2016 None Full Exam - General 1994 Respiratory respiratory effort/rhythm Overall: normal rate 01/19/2016 None Full Exam - General 1994 Cardiovascular auscultation of heart Overall: regular rate 01/19/2016 None Full Exam - General 1994 Cardiovascular auscultation of heart Overall: normal heart sounds 01/19/2016 None Full Exam - General 1994 Psychiatric orientation/consciousness Overall: oriented to person, place and time 01/19/2016 None Full Exam - General 1994 Psychiatric mood and affect Overall: normal mood and affect 01/19/2016 None Full Exam - General 1994 Eyes conjunctiva /eyelids Overall: conjunctiva clear 01/19/2016 None Full Exam - General 1994 Eyes conjunctiva /eyelids Overall: cornea clear 01/19/2016 None Full Exam - General 1994 Eyes conjunctiva /eyelids Overall: eyelids normal 01/19/2016 None Full Exam - General 1994 Integument inspection of skin Overall: no rash, lesions 01/19/2016 None Full Exam - General 1994 Musculoskeletal lower extremity Inspection - knee: swelling 01/19/2016 None Full Exam - General 1994 Musculoskeletal lower extremity Palpation - knee: small effusion 01/19/2016 None Full Exam - General 1994 Musculoskeletal lower extremity ROM - knee: pain with flexion 01/19/2016 None Full Exam - General 1994 Constitutional general appearance Development: well developed 09/18/2015 None Full Exam - General 1994 Constitutional general appearance Stature/Body Habitus: normal body habitus 09/18/2015 None Full Exam - General 1994 Constitutional general appearance Nourishment: well nourished 09/18/2015 None Full Exam - General 1994 Constitutional general appearance Evidence of Distress: in no acute distress 09/18/2015 None Full Exam - General 1994 Eyes pupils and irises Overall: pupils equal, round, reactive to light and accomodation 09/18/2015 None Full Exam - General 1994 Respiratory auscultation Overall: breath sounds clear bilaterally 09/18/2015 None Full Exam - General 1994 Respiratory respiratory effort/rhythm Overall: no retractions 09/18/2015 None Full Exam - General 1994 Respiratory respiratory effort/rhythm Overall: normal rate 09/18/2015 None Full Exam - General 1994 Cardiovascular auscultation of heart Overall: regular rate 09/18/2015 None Full Exam - General 1994 Cardiovascular auscultation of heart Overall: normal heart sounds 09/18/2015 None Full Exam - General 1994 Abdomen abdominal exam Bowel sounds: a normal exam 09/18/2015 None Full Exam - General 1994 Abdomen abdominal exam Skin: a normal exam 09/18/2015 None Full Exam - General 1994 Abdomen abdominal exam Upper quadrant: non-tender to palpation 09/18/2015 None Full Exam - General 1994 Abdomen abdominal exam Upper quadrant: tender to palpation 09/18/2015 radiates to back Full Exam - General 1994 Abdomen abdominal exam Lower quadrant: non-tender to palpation 09/18/2015 None Full Exam - General 1994 Abdomen abdominal exam Lower quadrant: tender to palpation 09/18/2015 None Full Exam - General 1994 Abdomen abdominal exam Epigastric: non-tender to palpation 09/18/2015 None Full Exam - General 1994 Musculoskeletal digits and nails Nails: a normal exam 09/18/2015 None Full Exam - General 1994 Musculoskeletal spine, ribs and pelvis Overall: ribs 09/18/2015 ttp over the lower portion of ribs on right side from spine to anterior chest Full Exam - General 1994 Integument inspection of skin Overall: few scattered moles, no gross abnormalities 09/18/2015 None Full Exam - General 1994 Psychiatric orientation/consciousness Overall: oriented to person, place and time 09/18/2015 None Full Exam - General 1994 Psychiatric mood and affect Overall: normal mood and affect 09/18/2015 None Full Exam - General 1994 Abdomen abdominal exam Contour: rounded 09/18/2015 None Full Exam - General 1994 Constitutional general appearance Development: well developed 09/01/2015 None Full Exam - General 1994 Constitutional general appearance Stature/Body Habitus: normal body habitus 09/01/2015 None Full Exam - General 1994 Constitutional general appearance Nourishment: well nourished 09/01/2015 None Full Exam - General 1994 Constitutional general appearance Evidence of Distress: in no acute distress 09/01/2015 None Full Exam - General 1994 Eyes pupils and irises Overall: pupils equal, round, reactive to light and accomodation 09/01/2015 None Full Exam - General 1994 Respiratory auscultation Overall: breath sounds clear bilaterally 09/01/2015 None Full Exam - General 1994 Respiratory respiratory effort/rhythm Overall: no retractions 09/01/2015 None Full Exam - General 1994 Respiratory respiratory effort/rhythm Overall: normal rate 09/01/2015 None Full Exam - General 1994 Cardiovascular auscultation of heart Overall: regular rate 09/01/2015 None Full Exam - General 1994 Cardiovascular auscultation of heart Overall: normal heart sounds 09/01/2015 None Full Exam - General 1994 Abdomen abdominal exam Bowel sounds: a normal exam 09/01/2015 None Full Exam - General 1994 Abdomen abdominal exam Skin: a normal exam 09/01/2015 None Full Exam - General 1994 Abdomen abdominal exam Upper quadrant: non-tender to palpation 09/01/2015 None Full Exam - General 1994 Abdomen abdominal exam Upper quadrant: tender to palpation 09/01/2015 radiates to back Full Exam - General 1994 Abdomen abdominal exam Lower quadrant: non-tender to palpation 09/01/2015 None Full Exam - General 1994 Abdomen abdominal exam Lower quadrant: tender to palpation 09/01/2015 None Full Exam - General 1994 Abdomen abdominal exam Epigastric: non-tender to palpation 09/01/2015 None Full Exam - General 1994 Abdomen abdominal exam Suprapubic: tender to palpation 09/01/2015 None Full Exam - General 1994 Musculoskeletal digits and nails Nails: a normal exam 09/01/2015 None Full Exam - General 1994 Integument inspection of skin Overall: few scattered moles, no gross abnormalities 09/01/2015 None Full Exam - General 1994 Psychiatric orientation/consciousness Overall: oriented to person, place and time 09/01/2015 None Full Exam - General 1994 Psychiatric mood and affect Overall: normal mood and affect 09/01/2015 None Full Exam - General 1994 Musculoskeletal spine, ribs and pelvis Overall: ribs 09/01/2015 ttp over the lower portion of ribs on right side from spine to anterior chest Full Exam - General 1994 Constitutional general appearance Stature/Body Habitus: normal body habitus 02/19/2015 None Full Exam - General 1994 Constitutional general appearance Nourishment: well nourished 02/19/2015 None Full Exam - General 1994 Constitutional general appearance Evidence of Distress: in no acute distress 02/19/2015 None Full Exam - General 1994 Neck inspection of neck Overall: normal size 02/19/2015 None Full Exam - General 1994 Neck inspection of neck Overall: normal appearance 02/19/2015 None Full Exam - General 1994 Respiratory respiratory effort/rhythm Overall: no retractions 02/19/2015 None Full Exam - General 1994 Respiratory respiratory effort/rhythm Overall: normal rate 02/19/2015 None Full Exam - General 1994 Cardiovascular auscultation of heart Overall: regular rate 02/19/2015 None Full Exam - General 1994 Cardiovascular auscultation of heart Overall: normal heart sounds 02/19/2015 None Full Exam - General 1994 Abdomen abdominal exam Bowel sounds: a normal exam 02/19/2015 None Full Exam - General 1994 Abdomen abdominal exam Skin: a normal exam 02/19/2015 None Full Exam - General 1994 Abdomen abdominal exam Upper quadrant: non-tender to palpation 02/19/2015 None Full Exam - General 1994 Abdomen abdominal exam Upper quadrant: tender to palpation 02/19/2015 radiates to back Full Exam - General 1994 Abdomen abdominal exam Lower quadrant: non-tender to palpation 02/19/2015 None Full Exam - General 1994 Abdomen abdominal exam Lower quadrant: tender to palpation 02/19/2015 None Full Exam - General 1994 Abdomen abdominal exam Epigastric: non-tender to palpation 02/19/2015 None Full Exam - General 1994 Abdomen abdominal exam Suprapubic: tender to palpation 02/19/2015 None Full Exam - General 1994 Lymphatic neck nodes Overall: anterior cervical chain benign 02/19/2015 None Full Exam - General 1994 Lymphatic neck nodes Overall: posterior cervical chain benign 02/19/2015 None Full Exam - General 1994 Musculoskeletal digits and nails Nails: a normal exam 02/19/2015 None Full Exam - General 1994 Integument inspection of skin Overall: few scattered moles, no gross abnormalities 02/19/2015 None Full Exam - General 1994 Psychiatric orientation/consciousness Overall: oriented to person, place and time 02/19/2015 None Full Exam - General 1994 Psychiatric mood and affect Overall: normal mood and affect 02/19/2015 None Full Exam - General 1994 Respiratory auscultation Upper lung field: a normal exam 02/19/2015 None Full Exam - General 1994 Respiratory auscultation Lower lung field: diminished 02/19/2015 None Full Exam - General 1994 Respiratory auscultation Right middle lung field: diminished 02/19/2015 None Full Exam - General 1994 Respiratory auscultation Right lower lung field: diminished 02/19/2015 None Full Exam - General 1994 Respiratory auscultation Basilar: diminished 02/19/2015 None Full Exam - General 1994 Constitutional general appearance Development: well developed 02/19/2015 None Full Exam - General 1994 Constitutional general appearance Development: well developed 02/10/2015 None Full Exam - General 1994 Constitutional general appearance Stature/Body Habitus: normal body habitus 02/10/2015 None Full Exam - General 1994 Constitutional general appearance Nourishment: well nourished 02/10/2015 None Full Exam - General 1994 Constitutional general appearance Evidence of Distress: in no acute distress 02/10/2015 None Full Exam - General 1994 Eyes pupils and irises Overall: pupils equal, round, reactive to light and accomodation 02/10/2015 None Full Exam - General 1994 Respiratory auscultation Overall: breath sounds clear bilaterally 02/10/2015 None Full Exam - General 1994 Respiratory respiratory effort/rhythm Overall: no retractions 02/10/2015 None Full Exam - General 1994 Respiratory respiratory effort/rhythm Overall: normal rate 02/10/2015 None Full Exam - General 1994 Cardiovascular auscultation of heart Overall: regular rate 02/10/2015 None Full Exam - General 1994 Cardiovascular auscultation of heart Overall: normal heart sounds 02/10/2015 None Full Exam - General 1994 Abdomen abdominal exam Bowel sounds: a normal exam 02/10/2015 None Full Exam - General 1994 Abdomen abdominal exam Skin: a normal exam 02/10/2015 None Full Exam - General 1994 Abdomen abdominal exam Upper quadrant: non-tender to palpation 02/10/2015 None Full Exam - General 1994 Abdomen abdominal exam Upper quadrant: tender to palpation 02/10/2015 radiates to back Full Exam - General 1994 Abdomen abdominal exam Lower quadrant: non-tender to palpation 02/10/2015 None Full Exam - General 1994 Abdomen abdominal exam Lower quadrant: tender to palpation 02/10/2015 None Full Exam - General 1994 Abdomen abdominal exam Epigastric: non-tender to palpation 02/10/2015 None Full Exam - General 1994 Abdomen abdominal exam Suprapubic: tender to palpation 02/10/2015 None Full Exam - General 1994 Musculoskeletal digits and nails Nails: a normal exam 02/10/2015 None Full Exam - General 1994 Integument inspection of skin Overall: few scattered moles, no gross abnormalities 02/10/2015 None Full Exam - General 1994 Psychiatric orientation/consciousness Overall: oriented to person, place and time 02/10/2015 None Full Exam - General 1994 Psychiatric mood and affect Overall: normal mood and affect 02/10/2015 None Full Exam - General 1994 Constitutional general appearance Development: well developed 01/13/2015 None Full Exam - General 1994 Constitutional general appearance Stature/Body Habitus: normal body habitus 01/13/2015 None Full Exam - General 1994 Constitutional general appearance Nourishment: well nourished 01/13/2015 None Full Exam - General 1994 Constitutional general appearance Evidence of Distress: in no acute distress 01/13/2015 None Full Exam - General 1994 Neck inspection of neck Overall: normal size 01/13/2015 None Full Exam - General 1994 Neck inspection of neck Overall: normal appearance 01/13/2015 None Full Exam - General 1994 Respiratory auscultation Overall: breath sounds clear bilaterally 01/13/2015 None Full Exam - General 1994 Respiratory respiratory effort/rhythm Overall: no retractions 01/13/2015 None Full Exam - General 1994 Respiratory respiratory effort/rhythm Overall: normal rate 01/13/2015 None Full Exam - General 1994 Cardiovascular auscultation of heart Overall: regular rate 01/13/2015 None Full Exam - General 1994 Cardiovascular auscultation of heart Overall: normal heart sounds 01/13/2015 None Full Exam - General 1994 Abdomen abdominal exam Bowel sounds: a normal exam 01/13/2015 None Full Exam - General 1994 Abdomen abdominal exam Skin: a normal exam 01/13/2015 None Full Exam - General 1994 Abdomen abdominal exam Upper quadrant: non-tender to palpation 01/13/2015 None Full Exam - General 1994 Abdomen abdominal exam Upper quadrant: tender to palpation 01/13/2015 radiates to back Full Exam - General 1994 Abdomen abdominal exam Lower quadrant: non-tender to palpation 01/13/2015 None Full Exam - General 1994 Abdomen abdominal exam Lower quadrant: tender to palpation 01/13/2015 None Full Exam - General 1994 Abdomen abdominal exam Epigastric: non-tender to palpation 01/13/2015 None Full Exam - General 1994 Abdomen abdominal exam Suprapubic: tender to palpation 01/13/2015 None Full Exam - General 1994 Lymphatic neck nodes Overall: anterior cervical chain benign 01/13/2015 None Full Exam - General 1994 Lymphatic neck nodes Overall: posterior cervical chain benign 01/13/2015 None Full Exam - General 1994 Musculoskeletal digits and nails Nails: a normal exam 01/13/2015 None Full Exam - General 1994 Integument inspection of skin Overall: few scattered moles, no gross abnormalities 01/13/2015 None Full Exam - General 1994 Psychiatric orientation/consciousness Overall: oriented to person, place and time 01/13/2015 None Full Exam - General 1994 Psychiatric mood and affect Overall: normal mood and affect 01/13/2015 None Full Exam - General 1994 Eyes pupils and irises Overall: pupils equal, round, reactive to light and accomodation 01/13/2015 None Full Exam - General 1994 Ears/Nose/Throat otoscopic exam Overall: tympanic membranes clear 01/13/2015 None Full Exam - General 1994 Ears/Nose/Throat otoscopic exam Overall: external auditory canals clear 01/13/2015 None Full Exam - General 1994 Ears/Nose/Throat oral cavity/pharynx/larynx Overall: oropharyngeal mucosa clear 01/13/2015 None Full Exam - General 1994 Ears/Nose/Throat oral cavity/pharynx/larynx Overall: no masses 01/13/2015 None Full Exam - General 1994 Ears/Nose/Throat oral cavity/pharynx/larynx Overall: oral mucosa clear 01/13/2015 None Full Exam - General 1994 Psychiatric orientation/consciousness Overall: oriented to person, place and time 01/09/2015 None Full Exam - General 1994 Psychiatric mood and affect Overall: normal mood and affect 01/09/2015 None Full Exam - General 1994 Integument inspection of skin Overall: few scattered moles, no gross abnormalities 01/09/2015 None Full Exam - General 1994 Musculoskeletal digits and nails Nails: a normal exam 01/09/2015 None Full Exam - General 1994 Lymphatic neck nodes Overall: anterior cervical chain benign 01/09/2015 None Full Exam - General 1994 Lymphatic neck nodes Overall: posterior cervical chain benign 01/09/2015 None Full Exam - General 1994 Abdomen abdominal exam Bowel sounds: a normal exam 01/09/2015 None Full Exam - General 1994 Abdomen abdominal exam Skin: a normal exam 01/09/2015 None Full Exam - General 1994 Abdomen abdominal exam Upper quadrant: tender to palpation 01/09/2015 radiates to back Full Exam - General 1994 Abdomen abdominal exam Upper quadrant: non-tender to palpation 01/09/2015 None Full Exam - General 1994 Abdomen abdominal exam Lower quadrant: tender to palpation 01/09/2015 None Full Exam - General 1994 Abdomen abdominal exam Lower quadrant: non-tender to palpation 01/09/2015 None Full Exam - General 1994 Abdomen abdominal exam Epigastric: non-tender to palpation 01/09/2015 None Full Exam - General 1994 Abdomen abdominal exam Suprapubic: tender to palpation 01/09/2015 None Full Exam - General 1994 Cardiovascular auscultation of heart Overall: regular rate 01/09/2015 None Full Exam - General 1994 Cardiovascular auscultation of heart Overall: normal heart sounds 01/09/2015 None Full Exam - General 1994 Respiratory auscultation Overall: breath sounds clear bilaterally 01/09/2015 None Full Exam - General 1994 Respiratory respiratory effort/rhythm Overall: no retractions 01/09/2015 None Full Exam - General 1994 Respiratory respiratory effort/rhythm Overall: normal rate 01/09/2015 None Full Exam - General 1994 Neck inspection of neck Overall: normal size 01/09/2015 None Full Exam - General 1994 Neck inspection of neck Overall: normal appearance 01/09/2015 None Full Exam - General 1994 Constitutional general appearance Development: well developed 01/09/2015 None Full Exam - General 1994 Constitutional general appearance Stature/Body Habitus: normal body habitus 01/09/2015 None Full Exam - General 1994 Constitutional general appearance Nourishment: well nourished 01/09/2015 None Full Exam - General 1994 Constitutional general appearance Evidence of Distress: in no acute distress 01/09/2015 None Full Exam - Orthopedics Psychiatric orientation/consciousness Overall: oriented to person, place and time 12/24/2014 None Full Exam - Orthopedics Neurological deep tendon reflex/nerve stretch Overall: deep tendon reflexes intact 12/24/2014 None Full Exam - Orthopedics Integument insp & palp - head & neck Overall: no rash or lesions 12/24/2014 None Full Exam - Orthopedics MS: right lower extremity range of motion - RLE Overall: full range of motion in knee 12/24/2014 None Full Exam - Orthopedics MS: right lower extremity range of motion - RLE Overall: full range of motion in ankle 12/24/2014 None Full Exam - Orthopedics MS: right lower extremity range of motion - RLE Overall: full range of motion in toes 12/24/2014 None Full Exam - Orthopedics MS: left lower extremity range of motion - LLE Overall: full range of motion in ankle 12/24/2014 None Full Exam - Orthopedics MS: left lower extremity range of motion - LLE Overall: full range of motion in knee 12/24/2014 None Full Exam - Orthopedics MS: left lower extremity range of motion - LLE Overall: full range of motion in toes 12/24/2014 None Full Exam - Orthopedics MS: Bilateral Lower Extremities insp & palp - LE Overall: normal appearance of legs 12/24/2014 None Full Exam - Orthopedics MS: Bilateral Lower Extremities insp & palp - LE Overall: no crepitus or defects 12/24/2014 None Full Exam - Orthopedics MS: right upper extremity insp & palp - RUE Overall: normal appearance of shoulder, arm, hands 12/24/2014 None Full Exam - Orthopedics MS: left upper extremity insp & palp - LUE Overall: normal appearance of shoulder, arm, hands 12/24/2014 None Full Exam - Orthopedics MS: left lower extremity range of motion - LLE Foot: able to fan toes 12/24/2014 None Full Exam - Orthopedics MS: left lower extremity range of motion - LLE Foot: full range of motion of all toes 12/24/2014 None Full Exam - Orthopedics MS: right lower extremity range of motion - RLE Ankle: pain with flexion 12/24/2014 Pain to plantar heel surface radiates into ankle Procedures Procedure Codes Date ROCEPHIN, PER 250 MG CPT-4: J0696 06/30/2017 THER/PROPH/DIAG INJ SC/IM CPT-4: 57563 06/22/2017 VITAMIN B12 INJECTION CPT-4: J3420 06/22/2017 THER/PROPH/DIAG INJ SC/IM CPT-4: 99165 04/19/2017 VITAMIN B12 INJECTION CPT-4: J3420 04/19/2017 THER/PROPH/DIAG INJ SC/IM CPT-4: 38608 01/20/2017 VITAMIN B12 INJECTION CPT-4: J3420 01/20/2017 THER/PROPH/DIAG INJ SC/IM CPT-4: 99079 12/13/2016 TRIAMCINOLONE ACET INJ NOS CPT-4: J3301 12/13/2016 THER/PROPH/DIAG INJ SC/IM CPT-4: 47094 12/01/2016 VITAMIN B12 INJECTION CPT-4: J3420 12/01/2016 THER/PROPH/DIAG INJ SC/IM CPT-4: 27803 2016 VITAMIN B12 INJECTION CPT-4: J3420 2016 THER/PROPH/DIAG INJ SC/IM CPT-4: 32805 09/17/2016 VITAMIN B12 INJECTION CPT-4: J3420 09/17/2016 THER/PROPH/DIAG INJ SC/IM CPT-4: 82910 08/20/2016 VITAMIN B12 INJECTION CPT-4: J3420 08/20/2016 THER/PROPH/DIAG INJ SC/IM CPT-4: 44507 07/23/2016 VITAMIN B12 INJECTION CPT-4: J3420 07/23/2016 THER/PROPH/DIAG INJ SC/IM CPT-4: 87341 06/23/2016 VITAMIN B12 INJECTION CPT-4: J3420 06/23/2016 THER/PROPH/DIAG INJ SC/IM CPT-4: 54464 06/01/2016 VITAMIN B12 INJECTION CPT-4: J3420 06/01/2016 THER/PROPH/DIAG INJ SC/IM CPT-4: 73156 05/14/2016 VITAMIN B12 INJECTION CPT-4: J3420 05/14/2016 THER/PROPH/DIAG INJ SC/IM CPT-4: 94168 04/28/2016 VITAMIN B12 INJECTION CPT-4: J3420 04/28/2016 URINALYSIS NONAUTO W/O SCOPE CPT-4: 46444 09/18/2015 URINALYSIS NONAUTO W/O SCOPE CPT-4: 42186 01/09/2015 Vital Signs Date Vital 08/19/2017 Blood Pressure 1: 144/70 Code : 8480-6 BMI: 33.0 Code : 73828-6 Heart Rate 1 : 96 bpm Height: 6'1" SpO2: 98% Weight: 250 lbs 06/30/2017 Blood Pressure 1: 140/68 Code : 8480-6 BMI: 33.1 Code : 22755-0 Heart Rate 1 : 83 bpm Height: 6'1" SpO2: 94% Temperature: 38.6 (C) / 101.5 (F) Weight: 251 lbs 03/07/2017 Blood Pressure 1: 132/72 Code : 8480-6 BMI: 32.3 Code : 43601-1 Heart Rate 1 : 79 bpm Height: 6'1" SpO2: 97% Weight: 245 lbs 12/13/2016 Blood Pressure 1: 144/76 Code : 8480-6 BMI: 32.5 Code : 43439-2 Heart Rate 1 : 97 bpm Height: 6'1" SpO2: 97% Weight: 246 lbs 12/01/2016 Blood Pressure 1: 146/78 Code : 8480-6 BMI: 32.5 Code : 28432-6 Heart Rate 1 : 85 bpm Height: 6'1" SpO2: 99% Weight: 246 lbs 10/13/2016 Blood Pressure 1: 160/76 Code : 8480-6 BMI: 32.5 Code : 15924-9 Heart Rate 1 : 82 bpm Height: 6'1" SpO2: 98% Weight: 246 lbs 09/29/2016 Blood Pressure 1: 140/78 Code : 8480-6 BMI: 32.2 Code : 08173-5 Heart Rate 1 : 83 bpm Height: 6'1" SpO2: 99% Weight: 244 lbs 08/30/2016 Blood Pressure 1: 132/74 Code : 8480-6 BMI: 32.1 Code : 10667-5 Heart Rate 1 : 99 bpm Height: 6'1" SpO2: 98% Weight: 243 lbs 07/13/2016 Blood Pressure 1: 130/64 Code : 8480-6 BMI: 33.4 Code : 17753-1 Heart Rate 1 : 92 bpm Height: 6'1" SpO2: 97% Weight: 253 lbs 06/01/2016 Blood Pressure 1: 130/72 Code : 8480-6 BMI: 32.7 Code : 16351-9 Heart Rate 1 : 72 bpm Height: 6'1" SpO2: 98% Weight: 248 lbs 04/28/2016 Blood Pressure 1: 130/70 Code : 8480-6 BMI: 32.7 Code : 65574-4 Heart Rate 1 : 89 bpm Height: 6'1" SpO2: 97% Weight: 248 lbs 01/19/2016 Blood Pressure 1: 142/74 Code : 8480-6 BMI: 32.9 Code : 09872-1 Heart Rate 1 : 67 bpm Height: 6'1" SpO2: 97% Weight: 249 lbs 09/18/2015 BMI: 33.1 Code: 53911-4 Height: 6'1" Weight: 251 lbs 09/01/2015 Blood Pressure 1: 140/80 Code : 8480-6 BMI: 33.0 Code : 60689-8 Heart Rate 1 : 67 bpm Height: 6'1" Weight: 250 lbs 02/19/2015 Blood Pressure 1: 148/78 Code : 8480-6 BMI: 33.8 Code : 96643-5 Heart Rate 1 : 69 bpm Height: 6'1" SpO2: 98% Weight: 256 lbs 02/10/2015 Blood Pressure 1: 128/80 Code : 8480-6 BMI: 33.0 Code : 86741-4 Heart Rate 1 : 76 bpm Height: 6'1" Weight: 250 lbs 01/13/2015 Blood Pressure 1: 112/78 Code : 8480-6 BMI: 32.5 Code : 99016-8 Heart Rate 1 : 81 bpm Height: 6'1" SpO2: 96% Weight: 246 lbs 01/09/2015 Blood Pressure 1: 146/80 Code : 8480-6 BMI: 32.6 Code : 12219-5 Heart Rate 1 : 83 bpm Height: 6'1" SpO2: 97% Temperature: 36.7 (C) / 98.1 (F) Weight: 247 lbs 12/24/2014 Blood Pressure 1: 132/86 Code : 8480-6 BMI: 33.2 Code : 69459-2 Heart Rate 1 : 78 bpm Height: 6'1" Respiratory Rate: 20 bpm Weight: 252 lbs Functional Status No Functional Status data History of Present Illness Symptom Name Status Result Effective Date Notes hypertension Quality intermittent 08/19/2017 None hypertension Onset and Resolution ongoing 08/19/2017 None hypertension Onset of Symptom during adulthood 08/19/2017 None hypertension Blood Pressure Values patient checking blood pressure at home - did not bring in readings 08/19/2017 None hypertension Alleviating Factors medication 08/19/2017 None hypertension Pertinent Findings dizziness 08/19/2017 occasionally when he stands up or turns quickly hypertension Pertinent Findings dyspnea 08/19/2017 with exertion hypertension Pertinent Findings edema 08/19/2017 "no more than normal" hip pain Location on the right 08/19/2017 None hip pain Quality intermittent 08/19/2017 None hip pain Onset and Resolution ongoing 08/19/2017 None hip pain Limitation on Activities allows weight bearing activity 08/19/2017 None hip pain Exacerbating Factors activity 08/19/2017 None hip pain Exacerbating Factors weight bearing 08/19/2017 None hypertension Pertinent Findings Denies decreased energy 08/19/2017 None hypertension Pertinent Findings Denies anxiety 08/19/2017 None hypertension Triggers no known associated factors 08/19/2017 None color change Location-Major on the legs 08/19/2017 None color change Location-Extremities on the left leg 08/19/2017 None color change Color brown 08/19/2017 None color change Onset and Resolution sudden in onset 08/19/2017 None color change Onset and Resolution ongoing 08/19/2017 None color change Pertinent Findings Denies dizziness 08/19/2017 None color change Pertinent Findings Denies itching 08/19/2017 None color change Pertinent Findings tenderness 08/19/2017 intermittent color change Alleviating Factors no alleviating factors 08/19/2017 None color change Triggers no known triggers 08/19/2017 None sinus congestion Location frontal sinuses 06/30/2017 None sinus congestion Quality constant 06/30/2017 None sinus congestion Quality pressure 06/30/2017 None sinus congestion Onset and Resolution sudden in onset 06/30/2017 None sinus congestion Onset of Symptom 1 days ago 06/30/2017 None sinus congestion Pertinent Findings fever 06/30/2017 None fever Quality intermittent 06/30/2017 None fever Onset and Resolution sudden in onset 06/30/2017 None fever Onset of Symptom 1 days ago 06/30/2017 None headache Location diffusely 06/30/2017 None headache Quality aching 06/30/2017 None headache Quality constant 06/30/2017 None headache Quality pressure 06/30/2017 None headache Onset and Resolution sudden in onset 06/30/2017 None headache Onset of Symptom 1 days ago 06/30/2017 None sores Location-Extremities on the left arm 03/07/2017 None sores Location-Extremities on the left hand 03/07/2017 None sores Quality acute None sores Color erythematous 03/07/2017 None sores Color brown 01/2017 None sores Color multicolored 03/07/2017 None sores Color red 2016 None sores Onset and Resolution sudden in onset 03/07/2017 None sores Onset of Symptom 1 week ago 03/07/2017 None sores Pertinent Findings pain 03/07/2017 None sinus congestion Location frontal sinuses 12/13/2016 None sinus congestion Quality fullness 12/13/2016 None sinus congestion Onset and Resolution sudden in onset 12/13/2016 None sinus congestion Onset of Symptom 6 days ago 12/13/2016 None sinus congestion Frequency of Episodes daily 12/13/2016 None sore throat Location diffusely 12/13/2016 None sore throat Quality aching 12/13/2016 None sore throat Quality dull 12/13/2016 None sore throat Onset and Resolution sudden in onset 12/13/2016 None hypertension Onset and Resolution ongoing 12/01/2016 None hypertension Onset of Symptom during adulthood 12/01/2016 None hypertension Blood Pressure Values patient checking blood pressure at home - did not bring in readings 12/01/2016 None hypertension Alleviating Factors medication 12/01/2016 None hypertension Pertinent Findings dizziness 12/01/2016 occasionally when he stands up or turns quickly hypertension Pertinent Findings dyspnea 12/01/2016 with exertion hypertension Pertinent Findings edema 12/01/2016 "no more than normal" shortness of breath Quality breathlessness 12/01/2016 None shortness of breath Quality improving 12/01/2016 None shortness of breath Quality intermittent 12/01/2016 None shortness of breath Limitation on Activities moderately limits activities 12/01/2016 None shortness of breath Alleviating Factors rest 12/01/2016 None shortness of breath Exacerbating Factors exertion 12/01/2016 None hypertension Quality intermittent 12/01/2016 None shortness of breath Onset and Resolution ongoing 12/01/2016 None neck pain Location on the left 12/01/2016 None neck pain Quality intermittent 12/01/2016 None neck pain Onset and Resolution ongoing 12/01/2016 None neck pain Onset of Symptom 2+ months ago 12/01/2016 None neck pain Exacerbating Factors position change 12/01/2016 None neck pain Exacerbating Factors turning head to the left 12/01/2016 None hip pain Location on the right 12/01/2016 None hip pain Quality intermittent 12/01/2016 None hip pain Onset and Resolution ongoing 12/01/2016 None hip pain Limitation on Activities allows weight bearing activity 12/01/2016 None hip pain Exacerbating Factors weight bearing 12/01/2016 None hip pain Exacerbating Factors activity 12/01/2016 None hypertension Onset and Resolution ongoing 10/13/2016 None hypertension Onset of Symptom during adulthood 10/13/2016 None hypertension Blood Pressure Values patient checking blood pressure at home - did not bring in readings 10/13/2016 None hypertension Alleviating Factors medication 10/13/2016 None hypertension Pertinent Findings dizziness 10/13/2016 occasionally when he stands up hypertension Pertinent Findings dyspnea 10/13/2016 with exertion hypertension Pertinent Findings edema 10/13/2016 "no more than normal" shortness of breath Quality intermittent 10/13/2016 None shortness of breath Quality breathlessness 10/13/2016 None shortness of breath Quality acute 10/13/2016 None shortness of breath Quality improving 10/13/2016 None shortness of breath Limitation on Activities moderately limits activities 10/13/2016 None shortness of breath Exacerbating Factors exertion 10/13/2016 None shortness of breath Alleviating Factors rest 10/13/2016 None hypertension Onset and Resolution ongoing 09/29/2016 None hypertension Onset of Symptom during adulthood 09/29/2016 None hypertension Alleviating Factors medication 09/29/2016 None hypertension Pertinent Findings dizziness 09/29/2016 occasionally when he stands up hypertension Pertinent Findings dyspnea 09/29/2016 at rest and with exertion hypertension Pertinent Findings edema 09/29/2016 "no more than normal" pain, generalized Location diffusely 09/29/2016 in the chest and back pain, generalized Quality intermittent 09/29/2016 None pain, generalized Onset and Resolution ongoing 09/29/2016 None pain, generalized Triggers no known associated factors 09/29/2016 None urinary retention/hesitancy Quality dribbling 09/29/2016 None urinary retention/hesitancy Quality intermittent 09/29/2016 None urinary retention/hesitancy Onset and Resolution gradual in onset 09/29/2016 None urinary retention/hesitancy Onset and Resolution ongoing 09/29/2016 None urinary retention/hesitancy Quality improving 09/29/2016 None urinary retention/hesitancy Alleviating Factors medication 09/29/2016 None hypertension Blood Pressure Values patient checking blood pressure at home - did not bring in readings 09/29/2016 None hypertension Onset and Resolution ongoing 08/30/2016 None hypertension Onset of Symptom during adulthood 08/30/2016 None hypertension Blood Pressure Values not checking blood pressure at home 08/30/2016 None hypertension Alleviating Factors medication 08/30/2016 None hypertension Pertinent Findings dizziness 08/30/2016 occasionally when he stands up hypertension Pertinent Findings dyspnea 08/30/2016 at rest and with exertion hypertension Pertinent Findings edema 08/30/2016 "no more than normal" pain, generalized Location diffusely 08/30/2016 in the chest and back pain, generalized Quality acute 08/30/2016 None pain, generalized Quality intermittent 08/30/2016 None pain, generalized Onset and Resolution ongoing 08/30/2016 None pain, generalized Onset of Symptom 5 weeks ago 08/30/2016 None pain, generalized Triggers no known associated factors 08/30/2016 None urinary retention/hesitancy Quality intermittent 08/30/2016 None urinary retention/hesitancy Quality dribbling 08/30/2016 None urinary retention/hesitancy Quality worsening 08/30/2016 None urinary retention/hesitancy Onset and Resolution ongoing 08/30/2016 None urinary retention/hesitancy Onset and Resolution gradual in onset 08/30/2016 None rash Location-Major on the chest 07/13/2016 None rash Color red 2015 None rash Onset and Resolution sudden in onset 07/13/2016 None rash Onset of Symptom 3 weeks ago 07/13/2016 None rash Prior Treatments unresponsive to treatment 07/13/2016 None rash Triggers no known triggers 07/13/2016 None rash Pertinent Findings itching 07/13/2016 None low back pain Quality chronic 06/01/2016 None low back pain Onset and Resolution ongoing 06/01/2016 None low back pain Limitation on Activities allows weight bearing activity 06/01/2016 None low back pain Limitation on Activities moderately limits activities 06/01/2016 None low back pain Initial treatment physical therapy 06/01/2016 None hypertension Onset and Resolution ongoing 06/01/2016 None hypertension Onset of Symptom during adulthood 06/01/2016 None hypertension Blood Pressure Values not checking blood pressure at home 06/01/2016 None hypertension Alleviating Factors medication 06/01/2016 None hypertension Pertinent Findings dizziness 06/01/2016 lightheaded occ. hypertension Pertinent Findings dyspnea 06/01/2016 with exertion hypertension Pertinent Findings edema 06/01/2016 occasional hypertension Onset and Resolution ongoing 04/28/2016 None hypertension Onset of Symptom during adulthood 04/28/2016 None hypertension Blood Pressure Values not checking blood pressure at home 04/28/2016 None hypertension Alleviating Factors medication 04/28/2016 None hypertension Pertinent Findings dizziness 04/28/2016 None hypertension Pertinent Findings dyspnea 04/28/2016 with exertion hypertension Pertinent Findings edema 04/28/2016 occasional low back pain Quality chronic 04/28/2016 None low back pain Onset and Resolution ongoing 04/28/2016 None low back pain Limitation on Activities allows weight bearing activity 04/28/2016 None low back pain Limitation on Activities moderately limits activities 04/28/2016 None low back pain Initial treatment physical therapy 04/28/2016 None knee pain Location on the right 01/19/2016 None knee pain Quality giving way 01/19/2016 None knee pain Quality tenderness 01/19/2016 None knee pain Quality constant 01/19/2016 None knee pain Onset and Resolution sudden in onset 01/19/2016 None knee pain Onset of Symptom 4 days ago 01/19/2016 None knee pain Frequency of Episodes daily 01/19/2016 None knee pain Mechanism of injury unknown 01/19/2016 None knee pain Pertinent Findings limping 01/19/2016 None knee pain Pertinent Findings pain with movement 01/19/2016 None knee pain Pertinent Findings redness 01/19/2016 None knee pain Pertinent Findings stiffness 01/19/2016 None knee pain Pertinent Findings swelling 01/19/2016 None knee pain Alleviating Factors ice compression 01/19/2016 None back pain Location in the right middle back area 09/18/2015 None back pain Quality acute 09/18/2015 None back pain Onset and Resolution sudden in onset 09/18/2015 to right side. Pt states he has chronic back pain. He reports that his pain is better taking doxycycline, just a stinging pain now to right side off and on back pain Triggers no known associated factors 09/18/2015 None sinus congestion Onset and Resolution sudden in onset 09/18/2015 None sinus congestion Onset of Symptom 4 days ago 09/18/2015 None sinus congestion Frequency of Episodes daily 09/18/2015 None sinus congestion Pertinent Findings Denies cough 09/18/2015 None sinus congestion Pertinent Findings facial pain 09/18/2015 None sinus congestion Pertinent Findings Denies fever 09/18/2015 None back pain Onset of Symptom 6 months ago 09/18/2015 None back pain Pertinent Findings Denies extremity numbness 09/18/2015 None back pain Pertinent Findings Denies extremity weakness 09/18/2015 None back pain Pertinent Findings Denies sleep disturbance 09/18/2015 None back pain Location in the right middle back area 09/01/2015 None back pain Quality acute 09/01/2015 None back pain Onset and Resolution sudden in onset 09/01/2015 to right side. Pt states he has chronic back pain. He reports that his pain is better, just a twinge now to right side. back pain Triggers no known associated factors 09/01/2015 None cough Location in the throat 02/19/2015 None cough Quality hacking 02/19/2015 None cough Onset and Resolution gradual in onset 02/19/2015 None cough Onset of Symptom 1 weeks ago 02/19/2015 None cough Alleviating Factors inhaled medications 02/19/2015 flonase cough Pertinent Findings chest discomfort 02/19/2015 None cough Pertinent Findings nasal congestion 02/19/2015 None sore throat Onset and Resolution gradual in onset 02/19/2015 None sore throat Onset of Symptom 2 days ago 02/19/2015 None sore throat Frequency of Episodes daily 02/19/2015 None sore throat Pertinent Findings cough 02/19/2015 None sore throat Pertinent Findings nasal congestion 02/19/2015 None sore throat Location diffusely 02/19/2015 None sore throat Location on both sides 02/19/2015 None sore throat Quality acute 02/19/2015 None sore throat Quality scratchy 02/19/2015 None sore throat Limitation on Activities does not limit oral intake 02/19/2015 None sore throat Alleviating Factors rest 02/19/2015 None back pain Location in the right middle back area 02/10/2015 None back pain Quality acute 02/10/2015 None back pain Onset and Resolution sudden in onset 02/10/2015 to right side. Pt states he has chronic back pain. He reports that his pain is better, just a twinge now to right side. back pain Triggers no known associated factors 02/10/2015 None back pain Quality acute 01/13/2015 None back pain Onset and Resolution sudden in onset 01/13/2015 to right side. Pt states he has chronic back pain. He reports that his pain is better, just a twinge now to right side. back pain Location in the right middle back area 01/13/2015 None back pain Triggers no known associated factors 01/13/2015 None dysuria Quality acute 01/09/2015 None dysuria Onset and Resolution sudden in onset 01/09/2015 None dysuria Onset of Symptom 4 days ago 01/09/2015 None dysuria Limitation on Activities moderately limits urination 01/09/2015 None dysuria Frequency of Episodes increasing 01/09/2015 None abdominal pain Location in the RLQ 01/09/2015 None abdominal pain Radiating the back 01/09/2015 None abdominal pain Radiating the flank 01/09/2015 None abdominal pain Quality throbbing 01/09/2015 None abdominal pain Onset and Resolution sudden in onset 01/09/2015 None abdominal pain Limitation on Activities moderately limits activities 01/09/2015 None back pain Quality acute 01/09/2015 None back pain Onset and Resolution sudden in onset 01/09/2015 to right side. Pt states he has chronic back pain to the left but this pain is more severe and a new kind of pain. foot pain Location on the right 12/24/2014 None foot pain Location in the heel 12/24/2014 None foot pain Quality throbbing 12/24/2014 None foot pain Quality constant 12/24/2014 None foot pain Timing of Episodes in the afternoon 12/24/2014 None foot pain Timing of Episodes at night 12/24/2014 None foot pain Onset and Resolution ongoing 12/24/2014 None foot pain Frequency of Episodes unchanged 12/24/2014 None foot pain Limitation on Activities moderately limits activities 12/24/2014 None foot pain Severity moderate 12/24/2014 None foot pain Significant Medications NSAID' s 12/24/2014 States that he has been taking Ibuprofen at night Advance Directives No Advance Directive data Encounters Encounter Performer Location Codes Date () [id number] EST. 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 PATIENT, LEVEL III Diagnosis: Acute laryngopharyngitis[ICD10: J06.0] Diagnosis: Other allergic rhinitis[ICD10: J30.89] Diagnosis: Other malaise[ICD10: R53.81] Maribel Hernández MD, [facility] CPT-4 : 93414 06/30/2017 [id number] EST. PATIENT, LEVEL II Diagnosis: Laceration without foreign body of left hand, initial encounter[ICD10 : S61.412A] Catherine Hernández MD, [facility] CPT-4: 99471 03/07/2017 24419 EST. PATIENT, LEVEL IV Diagnosis: Other acute sinusitis[ICD10: J01.80] Diagnosis: Other allergic rhinitis[ICD10: J30.89] Maribel Hernández MD, [facility] CPT-4: 95274 12/13/2016 ([id number]) 26233 EST. PATIENT, LEVEL IV Diagnosis: Vitamin B12 deficiency anemia due to intrinsic factor deficiency[ ICD10: D51.0] Diagnosis: Cervicalgia[ICD10: M54.2] Diagnosis: Pain in left hip[ICD10: M25.552] Diagnosis: Pain in right hip[ICD10: M25.551] Diagnosis: Essential (primary) hypertension[ICD10: I10] Diagnosis: Other pulmonary embolism without acute cor pulmonale[ICD10: I26.99] Linn Hernández MD, [facility] CPT-4: 44768 12/01/2016 ([id number]) 30201 EST. PATIENT, LEVEL III Diagnosis: Other pulmonary embolism without acute cor pulmonale[ICD10: I26.99] Linn Hernández MD, [facility] CPT-4: 06041 10/13/2016 ([id number]) 55066 EST. PATIENT, LEVEL III Diagnosis: Gastro-esophageal reflux disease without esophagitis[ICD10: K21.9] Linn Hernández MD, [facility] CPT-4: 73600 09/29/2016 ([id number]) 07613 EST. PATIENT, LEVEL III Diagnosis: Other chest pain[ICD10: R07.89] Diagnosis: Benign prostatic hyperplasia with lower urinary tract symptoms[ICD10 : N40.1] Linn Hernández MD, [facility] CPT-4: 89400 2016 81962 EST. PATIENT, LEVEL III Diagnosis: Cellulitis of chest wall[ICD10: L03.313] Maribel Hernández MD [facility] CPT-4: 60806 07/13/2016 ([id number]) 56929 EST. PATIENT, LEVEL III Diagnosis: Pain in thoracic spine[ICD10: M54.6] Diagnosis: Low back pain[ICD10: M54.5] [facility] CPT- 4: 52422 06/01/2016 ([id number]) 97243 EST. PATIENT, LEVEL III Diagnosis: Low back pain[ICD10: M54.5] Diagnosis: Essential (primary) hypertension[ICD10: I10] Diagnosis: Vitamin B12 deficiency anemia due to intrinsic factor deficiency[ ICD10: D51.0] [facility] CPT-4: 42950 04/28/2016 19624 EST. PATIENT, LEVEL IV Diagnosis: Pain in right knee[ICD10: M25.561] Maribel Hernández MD, [facility] CPT-4: 95801 01/19/2016 ([id number]) 96209 EST. PATIENT, LEVEL III Diagnosis: Acute recurrent maxillary sinusitis[ICD10: J01.01] Diagnosis: Other chest pain[ICD10: R07.89] Diagnosis: Unspecified abdominal pain[ICD10: R10.9] Linn Hernández MD, [facility] CPT-4: 59964 09/18/2015 ([id number]) 48860 EST. PATIENT, LEVEL III Diagnosis: Pain in thoracic spine[ICD10: M54.6] Diagnosis: Other chest pain[ICD10: R07.89] Linn Hernández MD, [facility] CPT- 4: 22812 09/01/2015 ([id number]) 63549 EST. PATIENT, LEVEL III Diagnosis: ACUTE BRONCHITIS[ICD9: 466.0] [facility] CPT-4 : 94357 02/19/2015 ([id number]) 76589 EST. PATIENT, LEVEL III Diagnosis: Back pain[ICD9: 724.5] [facility] CPT-4: 43279 02/10/2015 ([id number]) 36529 EST. PATIENT, LEVEL III Diagnosis: Back pain[ICD9: 724.5] [facility] CPT-4: 99215 01/13/2015 ([id number] 75701 EST. PATIENT, LEVEL III Diagnosis: Dysuria[ICD9: 788.1] Diagnosis: Right sided abdominal pain[ICD9: 789.09] [facility] CPT-4: 34986 01/09/2015 ([id number]) OFFICE VISIT, NEW - LEVEL 3 Diagnosis: Plantar fasciitis[ICD9: 728.71] [facility] CPT-4 : 73204 12/24/2014 Plan of Care Planned Activity Notes Codes Status Date Patient Education: Patient Medication Summary Completed 08/19/2017 Care Plan: Referral Order SNOMED-CT : [id number] Pending 08/19/2017 Appointment: Maribel Tracy WPtel: [phone] [facility] [place] (15 min) Moderate 06/30/2017 Patient Education: Patient Medication Summary Completed 06/30/2017 Appointment: Injection 06/22/2017 Patient Education: Patient Medication Summary Completed 06/22/2017 Appointment: Injection 04/19/2017 Patient Education: Patient Medication Summary Completed 04/19/2017 Appointment: Catherine Traore WPtel: [phone] [phone] [place] (15 min) Moderate 03/07/2017 Patient Education: Patient Medication Summary Completed 03/07/2017 Appointment: Injection 01/20/2017 Patient Education: Patient Medication Summary Completed 01/20/2017 Patient Education: Patient Medication Summary Completed 12/13/2016 Patient Education: Obesity Completed 12/13/2016 [facility]ment[phone] [place] ([facility] min) Moderate 12/01/2016 Patient Education: Patient Medication Summary Completed 12/01/2016 Patient Education: .Cervicalgia Neck Pain Completed 12/01/2016 Appointment: Injection 2016 Patient Education: Patient Medication Summary Completed 2016 Appointment: Linn Hernández WPtel: [phone] [facility] [place] (15 min) Moderate 10/13/2016 Patient Education: Patient Medication Summary Completed 10/13/2016 Patient Education: Obesity Completed 10/13/2016 Appointment: Linn Hernández WPtel: [phone] [facility] (15 min) Moderate 09/29/2016 Patient Education: Patient Medication Summary Completed 09/29/2016 Patient Education: Obesity Completed 09/29/2016 Appointment: Injection 09/17/2016 Patient Education: Patient Medication Summary Completed 09/17/2016 Referral: Shon Mullen Referral Completed 08/31/2016 Appointment: Linn [facility]el[phone] [place] (15 min) Moderate 08/30/2016 Patient Education: Patient Medication Summary Completed 08/30/2016 Patient Education: Obesity Completed 08/30/2016 Appointment: Injection 08/20/2016 Patient Education: Patient Medication Summary Completed 08/20/2016 Appointment: Injection 07/23/2016 Patient Education: Patient Medication Summary Completed 07/23/2016 Referral: Dr. Marcio Bullard WPtel: Patient's informed. Completed 07/20/2016 Appointment: [phone] [place] (30 min) Complex 07/13/2016 Patient Education: Patient Medication Summary Completed 07/13/2016 Appointment: Injection 06/23/2016 Patient Education: Patient Medication Summary Completed 06/23/2016 Appointment: Linn Hern[facility]dez [facility]el: [phone] [place] (15 min) Moderate 06/01/2016 Patient Education: Patient Medication Summary Completed 06/01/2016 Patient Education: Obesity Completed 06/01/2016 Care Plan: Referral Order SNOMED-CT : [id number] Pending 06/01/2016 Appointment: Linn Hernández WPtel: [phone] [facility] [place] (15 min) Moderate 05/26/2016 Appointment: Injection 05/14/2016 Patient Education: Patient Medication Summary Completed 05/14/2016 Appointment: Linn [facility]dez [facility]Ptel: [phone] [facility] [place] (15 min) Moderate 04/28/2016 Patient Education: Patient Medication Summary Completed 04/28/2016 Patient Education: Obesity Completed 04/28/2016 Appointment: Maribel Tracy [facility]el: [phone] (30 min) Complex 01/19/2016 Patient Education: Patient Medication Summary Completed 01/19/2016 Patient Education: Obesity Completed 01/19/2016 Appointment: (30 min) Complex 09/18/2015 Patient Education: Patient Medication Summary Completed 09/18/2015 Appointment: Linn Hern[facility]dez [facility]Ptel: [phone] [facility] [place] (15 min) Moderate 09/01/2015 Patient Education: Patient Medication Summary Completed 09/01/2015 Patient Education: Patient Medication Summary Completed 02/19/2015 Appointment: Linn Hernández WPtel: [phone] [facility] [place] (15 min) Moderate 02/12/2015 Appointment: Linn Hernández WPtel: [phone] [facility] [place] (15 min) Moderate 02/10/2015 Patient Education: Patient Medication Summary Completed 02/10/2015 Appointment: Linn Hernández WPtel: [phone] [facility] [place] (15 min) Moderate 02/05/2015 Appointment: Linn Hernández WPtel: [facility] [place] (15 min) Moderate 01/13/2015 Patient Education: Patient Medication Summary Completed 01/13/2015 Patient Education: Patient Medication Summary Completed 01/09/2015 Care Plan: COMPLETE CBC AUTOMATED LOINC : 31274-9 Ordered 01/09/2015 Appointment: (S) New Patient 12/24/2014 Patient Education: Patient Medication Summary Completed 12/24/2014 Referral: Dr. Marcio Bullard WPtel: Referral Appointment Requested Referral: Shon Mullen Referral Completed Referral: Shon Mullen Referral Appointment Requested Instructions No Instructions
--- OUTSIDE RECORDS SUMMARY | 2017-11-29 20:50 | XMS REPORT | Continuity of Care Document ---
Author Author [facility] Organization [facility] Address Unknown Phone Unavailable Allergies Active Description Code Type Severity Reaction Onset Reported/Identified Relationship to Patient Clinical Status Yes diphenhydramine [id number] Drug Allergy Unknown SWELLING, FLUSH 11/15/2014 Medications There is no data. Problems Date Dx Coded Attending Type Code Diagnosis Diagnosed By 11/15/2014 Ot 282.7 11/15/2014 Ot 289.6 11/15/2014 Ot 723.1 11/15/2014 Ot 785.6 11/15/2014 Ot V10.11 11/15/2014 Ot 729.5 11/15/2014 Ot 282.7 11/15/2014 Ot 789.01 11/15/2014 Ot 282.7 11/15/2014 Ot 786.05 11/15/2014 Ot 786.50 11/15/2014 Ot V58.69 11/15/2014 Ot 289.6 11/15/2014 Ot 473.9 11/15/2014 Ot 478.19 11/15/2014 Ot 238.4 11/15/2014 Ot 401.9 11/15/2014 Ot 473.9 11/15/2014 Ot V10.11 11/15/2014 Ot V12.51 11/15/2014 Ot V15.3 11/15/2014 Ot V15.82 11/15/2014 Ot V58.69 11/15/2014 Ot V76.44 11/15/2014 Ot V87.41 11/15/2014 Ot 162.9 11/15/2014 Ot 162.9 11/15/2014 Ot 289.6 11/15/2014 Ot 786.2 11/15/2014 Ot V10.11 11/15/2014 RADHA NUGENT, ELOINA Severino Ot 496 11/15/2014 RADHA NUGENT, ELOINA Severino Ot 786.2 11/15/2014 RADHA NUGENT, ELOINA Severino Ot 786.50 11/20/2014 ROJAS NUGENT, ANAHI Severino Ot 706.2 SEBACEOUS CYST 12/28/2014 ROJAS NUGENT, ANAHI M Ot 706.2 12/28/2014 ROJAS NUGENT, ANAHI Severino Ot V72.63 12/28/2014 ROJAS NUGENT, ANAHI M Ot V74.8 01/10/2015 Ot 282.7 01/10/2015 Ot 289.6 01/10/2015 Ot 723.1 01/10/2015 Ot 785.6 01/10/2015 Ot V10.11 01/10/2015 Ot 729.5 01/10/2015 Ot 282.7 01/10/2015 Ot 789.01 01/10/2015 Ot 282.7 01/10/2015 Ot 786.05 01/10/2015 Ot 786.50 01/10/2015 Ot V58.69 01/10/2015 Ot 289.6 01/10/2015 Ot 473.9 01/10/2015 Ot 478.19 01/10/2015 Ot 238.4 01/10/2015 Ot 401.9 01/10/2015 Ot 473.9 01/10/2015 Ot V10.11 01/10/2015 Ot V12.51 01/10/2015 Ot V15.3 01/10/2015 Ot V15.82 01/10/2015 Ot V58.69 01/10/2015 Ot V76.44 01/10/2015 Ot V87.41 01/10/2015 Ot 162.9 01/10/2015 Ot 162.9 01/10/2015 Ot 289.6 01/10/2015 Ot 786.2 01/10/2015 Ot V10.11 01/10/2015 RADHA NUGENT, ELOINA Severino Ot 496 01/10/2015 RADHA NUGENT, ELOINA Severino Ot 786.2 01/10/2015 RADHA NUGENT, ELOINA Severino Ot 786.50 01/10/2015 ROJAS NUGENT, ANAHI Severino Ot 706.2 01/10/2015 ROJAS NUGENT, ANAHI Mere Ot V72.63 01/10/2015 ROJAS NUGENT, ANAHI Severino Ot V74.8 01/20/2015 EVIN CELESTE APRN Ot 789.00 02/03/2015 EVIN CELESTE APRN Ot 789.00 02/19/2015 EPIFANIO NUGENT, TONA Cotton Ot 724.5 02/19/2015 TONA GODFREY MD Ot V10.11 02/19/2015 EPIFANIO NUGENT, TONA Cotton Ot 722.51 02/19/2015 TONA GODFREY MD Ot 722.52 02/27/2015 EVIN CELESTE MEMBER OF [employer]GRESS Ot 789.00 03/14/2015 TONA GODFREY MD Ot 722.51 03/14/2015 TONA GODFREY MD Ot 722.52 09/11/2015 Ot M54.9 09/18/2015 Ot M54.9 12/31/2015 Ot 282.7 HEMOGLOBINOPATHIES NEC 01/20/2016 CONRAD HAYWOOD [employer] Ot M25.561 PAIN IN RIGHT KNEE 01/30/2016 Ot 282.7 HEMOGLOBINOPATHIES NEC 02/12/2016 CONRAD HAYWOOD [employer] Ot M25.561 PAIN IN RIGHT KNEE 02/19/2016 CONRAD HAYWOOD [employer] Ot M25.561 PAIN IN RIGHT KNEE 07/16/2016 Ot 289.6 FAMILIAL POLYCYTHEMIA 07/16/2016 Ot 473.9 CHRONIC SINUSITIS NOS 07/16/2016 Ot 478.19 OTHER DISEASE OF NASAL CAVITY AND SINUSE 07/16/2016 Ot 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 07/16/2016 Ot 401.9 HYPERTENSION NOS 07/16/2016 Ot 473.9 CHRONIC SINUSITIS NOS 07/16/2016 Ot V10.11 HX- BRONCHOGENIC MALIGNAN 07/16/2016 Ot V12.51 HX-VENOUS THROMBOSIS EMBOLISM 07/16/2016 Ot V15.3 HX OF IRRADIATION 07/16/2016 Ot V15.82 HISTORY OF TOBACCO USE 07/16/2016 Ot V58.69 OTH MED,LT, CURRENT USE 07/16/2016 Ot V76.44 SCREEN MAL NEOP-PROSTATE 07/16/2016 Ot V87.41 PERSONAL HISTORY OF ANTINEOPLASTIC CHEMO 07/16/2016 Ot 162.9 MAL RAMON BRONCH/LUNG NOS 07/16/2016 Ot 162.9 MAL RAMON BRONCH/LUNG NOS 07/16/2016 Ot 289.6 FAMILIAL POLYCYTHEMIA 07/16/2016 Ot 786.2 COUGH 07/16/2016 Ot V10.11 HX- BRONCHOGENIC MALIGNAN 07/16/2016 ELOINA GARCIA MD Ot 496 CHR AIRWAY OBSTRUCT NEC 07/16/2016 ELOINA GARCIA MD Ot 786.2 COUGH 07/16/2016 RADHA NUGENT, ELOINA Mere Ot 786.50 CHEST PAIN NOS 07/16/2016 ROJAS NUGENT, ANAHI Severino Ot 706.2 SEBACEOUS CYST 07/16/2016 ROJAS NUGENT, ANAHI Severino Ot V72.63 PRE-PROCEDURAL LABORATORY EXAMINATION 07/16/2016 ROJAS NUGENT, ANAHI Severino Ot V74.8 SCREEN-BACTERIAL DIS NEC 07/16/2016 EVIN CELESTE APRN Ot 789.00 ABDOMINAL PAIN, UNSPECIFIED SITE 07/16/2016 EPIFANIO NUGENT, TONA Cotton Ot 724.5 BACKACHE NOS 07/16/2016 EPIFANIO NUGENT, TONA Cotton Ot V10.11 HX-BRONCHOGENIC MALIGNAN 07/16/2016 EPIFAINO NUGENT, TONA Cotton Ot 722.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 07/16/2016 EPIFANIO NUGENT, TONA Cotton Ot 722.52 LUMB/LUMBOSAC DISC DEGEN 07/16/2016 Ot M54.9 DORSALGIA, UNSPECIFIED 07/16/2016 CONRAD HAYWOOD [employer] Ot M25.561 PAIN IN RIGHT KNEE 07/16/2016 WINNIE NUGENT, GONZALEZ Cardenas Ot M51.16 INTERVERTEBRAL DISC DISORDERS W RADICULO 08/04/2016 WINNIE NUGENT, GONZALEZ Cardenas Ot M51.16 INTERVERTEBRAL DISC DISORDERS W RADICULO 09/01/2016 NORTH FISHER MD Ot R06.00 DYSPNEA, UNSPECIFIED 09/07/2016 NORTH FISHER MD Ot I10 ESSENTIAL (PRIMARY) HYPERTENSION 09/07/2016 NORTH FISHER MD Ot R06.00 DYSPNEA, UNSPECIFIED 09/07/2016 NORTH FISHER MD Ot R53.83 OTHER FATIGUE 09/07/2016 NORTH FISHER MD Ot I10 ESSENTIAL (PRIMARY) HYPERTENSION 09/07/2016 NORTH FISHER MD Ot R06.00 DYSPNEA, UNSPECIFIED 09/07/2016 NORTH FISHER MD Ot R53.83 OTHER FATIGUE 09/15/2016 NORTH FISHER MD Ot I10 ESSENTIAL (PRIMARY) HYPERTENSION 09/15/2016 NORTH FISHER MD Ot K92.9 DISEASE OF DIGESTIVE SYSTEM, UNSPECIFIED 09/15/2016 NORTH FISHER MD Ot R06.00 DYSPNEA, UNSPECIFIED 09/15/2016 NORTH FISHER MD Ot R53.83 OTHER FATIGUE 09/16/2016 NORTH FISHER MD Ot I10 ESSENTIAL (PRIMARY) HYPERTENSION 09/16/2016 NORTH FISHER MD Ot K92.9 DISEASE OF DIGESTIVE SYSTEM, UNSPECIFIED 09/16/2016 NORTH FISHER MD Ot R06.00 DYSPNEA, UNSPECIFIED 09/16/2016 NORTH FISHER MD Ot R53.83 OTHER FATIGUE 09/20/2016 NORTH FISHER MD Ot I10 ESSENTIAL (PRIMARY) HYPERTENSION 09/20/2016 NORTH FISHER MD Ot K92.9 DISEASE OF DIGESTIVE SYSTEM, UNSPECIFIED 09/20/2016 NORTH FISHER MD Ot R06.00 DYSPNEA, UNSPECIFIED 09/20/2016 NORTH FISHER MD Ot R53.83 OTHER FATIGUE 10/03/2016 TONA GODFREY MD Ot I26.99 OTHER PULMONARY EMBOLISM WITHOUT ACUTE C 10/03/2016 TONA GODFREY MD Ot Z85.118 PERSONAL HISTORY OF MALIGNANT NEOPLASM O 10/03/2016 TONA GODFREY MD Ot I26.99 OTHER PULMONARY EMBOLISM WITHOUT ACUTE C 10/03/2016 TONA GODFREY MD Ot Z85.118 PERSONAL HISTORY OF MALIGNANT NEOPLASM O 10/04/2016 NORTH FISHER MD Ot I10 ESSENTIAL (PRIMARY) HYPERTENSION 10/04/2016 NORTH FISHER MD Ot R06.00 DYSPNEA, UNSPECIFIED 10/04/2016 NORTH FISHER MD Ot R53.83 OTHER FATIGUE 10/04/2016 TONA GODFREY MD Ot I26.99 OTHER PULMONARY EMBOLISM WITHOUT ACUTE C 10/04/2016 TONA GODFREY MD Ot Z85.118 PERSONAL HISTORY OF MALIGNANT NEOPLASM O 10/05/2016 KAY CANELA ILLUSIONIST Ot I26.99 OTHER PULMONARY EMBOLISM WITHOUT ACUTE C 10/06/2016 KAY CANELA ILLUSIONIST Ot I26.99 OTHER PULMONARY EMBOLISM WITHOUT ACUTE C 10/06/2016 KAY CANELA ILLUSIONIST Ot I26.99 OTHER PULMONARY EMBOLISM WITHOUT ACUTE C 10/08/2016 NORTH FISHER MD Ot I10 ESSENTIAL (PRIMARY) HYPERTENSION 10/08/2016 NORTH FISHER MD Ot K92.9 DISEASE OF DIGESTIVE SYSTEM, UNSPECIFIED 10/08/2016 NORTH FISHER MD Ot R06.00 DYSPNEA, UNSPECIFIED 10/08/2016 NORTH FISHER MD Ot R53.83 OTHER FATIGUE 10/13/2016 NORTH FISHER MD Ot I10 ESSENTIAL (PRIMARY) HYPERTENSION 10/13/2016 NORTH FISHER MD Ot R06.00 DYSPNEA, UNSPECIFIED 10/13/2016 NORTH FISHER MD Ot R53.83 OTHER FATIGUE 10/13/2016 NORTH FISHER MD Ot I10 ESSENTIAL (PRIMARY) HYPERTENSION 10/13/2016 NORTH FISHER MD Ot K92.9 DISEASE OF DIGESTIVE SYSTEM, UNSPECIFIED 10/13/2016 NORTH FISHER MD Ot R06.00 DYSPNEA, UNSPECIFIED 10/13/2016 NORTH FISHER MD Ot R53.83 OTHER FATIGUE 10/25/2016 TONA GODFREY MD Ot I26.99 OTHER PULMONARY EMBOLISM WITHOUT ACUTE C 10/25/2016 TONA GODFREY MD Ot Z85.118 PERSONAL HISTORY OF MALIGNANT NEOPLASM O 11/03/2016 TONA GODFREY MD Ot I26.99 OTHER PULMONARY EMBOLISM WITHOUT ACUTE C 11/03/2016 TONA GODFREY MD Ot Z85.118 PERSONAL HISTORY OF MALIGNANT NEOPLASM O 11/23/2016 KAY CANELA Ot I26.99 OTHER PULMONARY EMBOLISM WITHOUT ACUTE C 12/13/2016 KAY CANELA Ot I26.99 OTHER PULMONARY EMBOLISM WITHOUT ACUTE C Procedures There is no data. Results There is no data. Encounters ACCT No. Visit Date/Time Discharge Status Pt. Type Provider Facility Loc./Unit Complaint [id number] 10/05/2016 13:39:00 10/05/2016 23:59:59 CLS Outpatient KAY CANELA [facility] CARD R RL PE [id number] 10/05/2016 07:57:00 10/05/2016 23:59:59 CLS Outpatient KAY CANELA [facility] RAD RIGHT LOWER PE [id number] 10/01/2016 11:54:00 10/01/2016 23:59:59 CLS Outpatient TONA GODFREY MD [facility] RAD HX OF LUNG CANCER [id number] 09/17/2016 09:08:00 09/17/2016 23:59:59 CLS Outpatient NORTH FISHER MD [facility] LAB SOB,HT,FATIGUE [id number] 09/15/2016 12:06:00 09/15/2016 23:59:59 CLS Outpatient NORTH FISHER MD [facility] CARD HTN, SOB, FATIGUE [id number] 09/06/2016 11:57:00 09/06/2016 23:59:59 CLS Outpatient NORTH FISHER MD [facility] CARD HTN,SOB,FATIGUE [id number] 07/16/2016 10:46:00 07/16/2016 11:38:00 DIS Outpatient GONZALEZ ZHOU MD [facility] CARD DISC DISORDER [id number] 01/19/2016 14:55:00 01/19/2016 23:59:59 CLS Outpatient CONRAD HAYWOOD APRN [facility] RAD PAIN RT KNEE [id number] 01/27/2015 14:48:00 01/27/2015 23:59:59 CLS Outpatient TONA GODFREY MD [facility] RAD BACK APIN,HX OF LUNG CA, DISK HERNIATION [id number] 01/20/2015 08:05:00 01/20/2015 23:59:59 CLS Outpatient TONA GODFREY MD [facility] RAD BACK PAIN, HX OF LUNG CA, DISK HERNIATION [id number] 01/10/2015 09:05:00 01/10/2015 23:59:59 CLS Outpatient EVIN CELESTE APRN [facility] RAD ABD PAIN [id number] 11/20/2014 11:28:00 11/20/2014 14:50:00 DIS Outpatient ANAHI XIE MD [facility] SDC INFECTED SEBACEOUS CYST [id number] 11/15/2014 09:38:00 11/15/2014 23:59:59 CLS Outpatient ANAHI XIE MD [facility] PREOP INFECTED SEBACEOUS CYST [id number] 10/24/2013 12:36:00 10/24/2013 23:59:59 CLS Outpatient ELOINA GARCIA MD [facility] RAD COUGH [id number] 10/24/2013 12:33:00 10/24/2013 23:59:59 CLS Outpatient [id number] 08/21/2015 11:40:00 Document Registration [id number] 06/20/2012 13:27:00 Document Registration [id number] 07/19/2011 14:51:00 Document Registration [id number] 07/13/2011 15:27:00 Document Registration [id number] 07/08/2011 10:33:00 Document Registration [id number] 06/16/2011 09:46:00 Document Registration [id number] 03/22/2011 10:23:00 Document Registration [id number] 12/22/2010 06:17:00 Document Registration [id number] 2010 13:14:00 Document Registration [id number] 2010 06:49:00 Document Registration [id number] 08/27/2010 09:44:00 Document Registration [id number] 09/18/2009 08:40:00 Document Registration [id number] 08/08/2009 14:07:00 Document Registration [id number] 01/27/2015 14:48:51 ACT Document Registration [id number] 03/07/2017 10:48:59 03/07/2017 23:59:59 CLS Outpatient
--- NOTE | 2017-11-29 20:56 | ED EENT ---
History of Present Illness General Chief Complaint: Nasal Problems Stated Complaint: NOSE BLEED Nursing Triage Note: PATIENT HERE FOR NOSE BLEED THAT STARTED APPROX 2014 TODAY. HE HAD ONE YESTERDAY AND HAD IT CAUTERIZED BY DR. HERNÁNDEZ. HE TAKES XARELTO FOR A PE. Source: patient Exam Limitations: no limitations History of Present Illness Date Seen by Provider: November 29, 2017 Time Seen by Provider: 20:46 Initial Comments Here with report of nosebleed that started at about 815 p.m. tonight. Had one yesterday and was cauterized Dr. Hernández's office. Does report taking blood thinners for a PE. Bleeding spontaneous tonight but denies other concerns. Does report taking his meds as directed. Does have history of high blood pressure but is only on low-dose lisinopril. Denies chest pain or breathing problems. Timing/Duration: abrupt Severity: moderate Location: nose Prearrival Treatment: squeezing nostrils Associated Symptoms: No cough, No fever, No sinus infection Allergies and Home Medications Allergies Coded Allergies: diphenhydramine (Unverified Allergy, Unknown, SWELLING, FLUSHING, SWALLOWING PROBLEMS, 11/15/14) Home Medications Amoxicillin 500 Mg Cap, 500 MG PO QID, (Reported) Fexofenadine Hcl 30 Mg Tablet, 30 MG PO PRN PRN for CONGESTION, (Reported) Hydrochlorothiazide 12.5 Mg Cap, 12.5 MG PO DAILY, (Reported) Hydrocodone Bit/Acetaminophen 1 Each Tablet, 1-2 TAB PO EVERY 4-6HRS PRN for PAIN Prescribed by: SYBIL CABRERA on 11/20/14 1415 Lisinopril 5 Mg Tablet, 5 MG PO DAILY, (Reported) Rivaroxaban 20 Mg Tablet, 20 MG PO DAILY, (Reported) [Allergy Shot] , WEEKLY, (Reported) Patient Home Medication List Home Medication List Reviewed: Yes Review of Systems Constitutional: see HPI; No chills, No fever Eyes: No Symptoms Reported Ears: No Symptoms Reported Nose: see HPI, epistaxis; denies pain Mouth: no symptoms reported Throat: no symptoms reported Respiratory: no symptoms reported Cardiovascular: no symptoms reported Gastrointestinal: no symptoms reported Past Bavuqlp-Kyurtt-Yjreri Hx Past Med/Social Hx: Reviewed Nursing Past Med/Soc Hx Patient Social History Alcohol Use: Denies Use Recreational Drug Use: No Smoking Status: Never a Smoker 2nd Hand Smoke Exposure: No Recent Foreign Travel: No Contact w/Someone Who Travel: No Recent Infectious Disease Expo: No Immunizations Up To Date Date of Pneumonia Vaccine: Aug 01, 2013 Past Medical History Surgeries: Yes (PAROTID GLAND REMOVAL, HEMORRHOIDECTOMY, LUNG LOBECTOMY) Respiratory: No Cardiac: Yes Neurological: No Reproductive Disorders: No Sexually Transmitted Disease: No HIV/AIDS: No Gastrointestinal: No Musculoskeletal: No Endocrine: No Loss of Vision: Denies Hearing Impairment: Denies Cancer: Yes Psychosocial: No Integumentary: No Blood Disorders: No Adverse Reaction/Blood Tranf: No Family Medical History Reviewed Nursing Family Hx No Pertinent Family Hx Physical Exam Vital Signs Vital Signs - First Documented 11/29/17 20:45 Temp 98.1 Pulse 94 Resp 18 B/P (MAP) 175/90 (118) Pulse Ox 94 O2 Delivery Room Air General Appearance: WD/WN, no apparent distress Eyes: bilateral eye normal inspection, bilateral eye PERRL, bilateral eye EOMI Nose: active bleeding (left nare); No sinus tenderness Mouth/Throat: pharynx normal, other (blood drainage noted in the posterior pharynx on the left patellar) Neck: full range of motion, supple Cardiovascular: regular rate, rhythm, no murmur Respiratory: lungs clear, normal breath sounds Neurologic/Psychiatric: alert, oriented x 3 Skin: normal color, warm/dry Progress/Results/Core Measures Lab Results Laboratory Tests Test 11/29/17 21:17 Range/Units White Blood Count 5.5 4.3-11.0 10^3/uL Red Blood Count 5.27 4.35-5.85 10^6/uL Hemoglobin 17.1 13.3-17.7 G/DL Hematocrit 50 40-54 % Mean Corpuscular Volume 95 80-99 FL Mean Corpuscular Hemoglobin 32 25-34 PG Mean Corpuscular Hemoglobin Concent 34 32-36 G/DL Red Cell Distribution Width 13.8 10.0-14.5 % Platelet Count 112 L 130-400 10^3/uL Mean Platelet Volume 10.4 7.4-10.4 FL Neutrophils (%) (Auto) 67 42-75 % Lymphocytes (%) (Auto) 24 12-44 % Monocytes (%) (Auto) 7 0-12 % Eosinophils (%) (Auto) 2 0-10 % Basophils (%) (Auto) 0 0-10 % Neutrophils # (Auto) 3.7 1.8-7.8 X 10^3 Lymphocytes # (Auto) 1.3 1.0-4.0 X 10^3 Monocytes # (Auto) 0.4 0.0-1.0 X 10^3 Eosinophils # (Auto) 0.1 0.0-0.3 10^3/uL Basophils # (Auto) 0.0 0.0-0.1 10^3/uL My Orders Orders - CHIP LAWS MD Metoprolol Succinate (Xl) Tab (Toprol Xl (11/29/17 21:00) Tranexamic Acid Injection (Cyklokapron I (11/29/17 21:00) Cbc With Automated Diff (11/29/17 21:06) Medications Given in ED Current Medications Medications Dose Ordered Sig/Arun Route Start Time Stop Time Status Last Admin Dose Admin Tranexamic Acid 10 MG/KG ONCE ONCE IV 11/29/17 21:00 11/29/17 21:01 DC 11/29/17 21:00 100 MG Vital Signs/I&O 11/29/17 20:45 Temp 98.1 Pulse 94 Resp 18 B/P (MAP) 175/90 (118) Pulse Ox 94 O2 Delivery Room Air Blood Pressure Mean: 118 Progress Note : Progress Note Seen and evaluated. Patient has persistent bleeding despite squeezing nostril. Merocel soaked in 2 weeks a placed and left in there with immediate stop of bleeding. Toprol-XL 50 mg by mouth given for her elevated blood pressure. We will monitor the patient for an hour. CBC ordered. Monitor patient. 2214: Packing removed. No rebleeding noted. We will continue to monitor. 2242: Bleeding has stopped and patient doing better. Blood pressure much improved. Discharged home with return precautions. Patient verbalize understanding instructions and agreement with plan. Departure Impression Primary Impression: Epistaxis Disposition: HOME, SELF-CARE Condition: Improved Departure-Patient Inst. Decision time for Depature: 22:48 Referrals: LIVIA MARK MD, HOLLY A MD (PCP/Family) Primary Care Physician Patient Instructions: Nosebleeds (DC) Add. Discharge Instructions: All discharge instructions reviewed with patient and/or family. Voiced understanding. Continue home medications as directed. Follow-up with Dr. Hernández tomorrow for recheck and further evaluation and discuss further referral to Dr. Mark for the nosebleeds. You also should discuss with Dr. Hernández about your blood pressure. Return for worse pain, bleeding, weakness, breathing problems or other concerns as needed. Do not blow your nose for the next 2 days. Copy Copies To 1: TONA HERNÁNDEZ MD, TIMOTHY D MD November 29, 2017 20:56
[2017-11-29] MEDS ORDERED: TRANEXAMIC ACID 100 MG/ML 10 ML INJECTION IV ONE (21:00)
[2017-11-29] MEDS ORDERED: meTOproloL SUCCINATE 50 MG (TOPROL XL) TAB PO SCH (21:00)
[2017-11-29] MEDS ORDERED: RIVA20TA PO (21:21)
[2017-11-29 21:30] LABS: BASOPHILS % (AUTO) 0 % (0-10); EOSINOPHILS # (AUTO) 0.1 10^3/uL (0.0-0.3); EOSINOPHILS % (AUTO) 2 % (0-10); HEMATOCRIT 50 % (40-54); HEMOGLOBIN 17.1 G/DL (13.3-17.7); LYMPHOCYTES # (AUTO) 1.3 X 10^3 (1.0-4.0); LYMPHOCYTES % (AUTO) 24 % (12-44); MEAN CORPUSCULAR HEMOGLOBIN 32 PG (25-34); MEAN CORPUSCULAR HGB CONC 34 G/DL (32-36); MEAN CORPUSCULAR VOLUME 95 FL (80-99); MEAN PLATELET VOLUME 10.4 FL (7.4-10.4); MONOCYTES # (AUTO) 0.4 X 10^3 (0.0-1.0); MONOCYTES % (AUTO) 7 % (0-12); NEUTROPHILS # (AUTO) 3.7 X 10^3 (1.8-7.8); NEUTROPHILS % (AUTO) 67 % (42-75); PLATELET COUNT 112 10^3/uL (130-400); RED BLOOD COUNT 5.27 10^6/uL (4.35-5.85); RED CELL DISTRIBUTION WIDTH 13.8 % (10.0-14.5); WHITE BLOOD COUNT 5.5 10^3/uL (4.3-11.0)
[2017-11-29 23:04] VITALS: BP 111/70
== END 2017-11-29 23:06 | disposition home or self-care (01) ==
LOC: EDUNIT# 20:39 → ER 20:41
DX: R04.0 Epistaxis (principal); Z90.2 Acquired absence of lung [part of]; Z90.89 Acquired absence of other organs
CPT/HCPCS: 36415; 85025; 96360; 99281

== ENCOUNTER → 2018-08-30 | Outpatient (CLI) | payer MEDICARE, OTHER ==
[~2018-08-30] MED LIST changes: +CATHETER FLUSH 10 ML SYR IV PRN; +REGADENOSON 0.4 MG/5 ML SYR (LEXISCAN) IV ONE; +RIVA20TA PO
--- NOTE | 2018-08-30 20:14 | STRESS TEST ---
DATE OF SERVICE: 08/30/2018 LEXISCAN MYOVIEW STRESS TEST REPORT REFERRING PHYSICIAN: Linn Hernández MD. Baseline heart rate is 82, baseline blood pressure 148/80. Baseline EKG is sinus rhythm with no ischemic changes. In summary, the patient was injected with 10.4 mCi of technetium-99 Myoview and the resting images were obtained. Then, the patient received 0.4 mg of Lexiscan followed by 28.3 mCi of technetium-99 Myoview. Throughout the test, there were no EKG changes. The resting and stress images were reviewed and compared in the short axis, horizontal long axis, and vertical long axis views. Review of the images showed good radiotracer uptake, mild ischemia noted at the mid to apical inferior wall and with mild reversibility. SSS is 3, SDS 3, and TID value 0.99. On the gated images, the left ventricle appeared to be normal size with normal contractility. Calculated ejection fraction is 59%. CONCLUSION: 1. The patient tolerated Lexiscan well. 2. Mild ischemia involving the mid to apical inferior wall. 3. Normal left ventricular size with normal contractility. Calculated ejection fraction is 59%. Job ID: [id number] DocumentID: [id number] Dictated Date: 08/30/2018 16:33:29 Traffic Routing Engineer Date: 08/30/2018 20:13:56 Dictated By: NORTH FISHER MD
== END ==
LOC: CARD 11:33
PROVIDERS: ATTEND Internal Medicine Cardiovascular Disease
DX: I10 Essential (primary) hypertension (principal); E78.2 Mixed hyperlipidemia; R06.02 Shortness of breath; I26.99 Other pulmonary embolism without acute cor pulmonale
CPT/HCPCS: 78452; 93017

== ENCOUNTER → 2018-09-26 | Outpatient (CLI) | payer MEDICARE, OTHER ==
[~2018-09-26] MED LIST changes: -CATHETER FLUSH 10 ML SYR IV PRN; -REGADENOSON 0.4 MG/5 ML SYR (LEXISCAN) IV ONE
== END ==
LOC: CARD 10:55
PROVIDERS: ATTEND Internal Medicine Cardiovascular Disease
DX: I10 Essential (primary) hypertension (principal); E78.2 Mixed hyperlipidemia; R06.02 Shortness of breath; I26.99 Other pulmonary embolism without acute cor pulmonale; I82.409 Acute embolism and thrombosis of unspecified deep veins of unspecified lower extremity
CPT/HCPCS: 93306

== ENCOUNTER → 2018-12-22 | Outpatient (CLI) | payer MEDICARE, OTHER ==
[~2018-12-22] MED LIST changes: +CATHETER FLUSH 10 ML SYR IV PRN; +HOLD METFORMIN - RECEIVED CONTRAST 20 ML VIAL IV SCH; +IOHEXOL 350 MG/ML 100 ML (OMNIPAQUE 350) VIAL IV ONE; +NS 100 ML (IVPB) BAG IV ONE; -RIVA20TA PO; +RIVA20TA2 PO
[2018-12-22 15:50] LABS: CREATININE SERUM 1.29 MG/DL (0.60-1.30)
--- NOTE | 2018-12-22 16:46 | Diagnostic Imaging Report ---
PROCEDURE: CT neck soft tissue with contrast. TECHNIQUE: Multiple contiguous axial images were obtained through the neck after the administration of contrast. Auto Exposure Controls were utilized during the CT exam to meet ALARA standards for radiation dose reduction. INDICATION: Dysphasia, previous right-sided parotidectomy. FINDINGS: The nasopharynx, the oropharynx, and the hypopharynx are unremarkable. The prevertebral and retropharyngeal space is unremarkable. The right parotid gland is surgically absent. Deep and superficial lobes of the left parotid are intact and unremarkable. The submandibulars bilaterally appeared unremarkable and the thyroid appeared normal. Partial visualization of a left apical pleural-parenchymal opacity is a redemonstrated finding and where visualized, not convincingly changed from chest CT of 2017 where it was reportedly stable from other priors. No cervical lymphadenopathy. Airway is widely patent. The bony skull base and visualized sinuses are clear. The cervical spine reveals chronic degenerative change but no acute pathology. Cervical esophagus is nondilated. Upper thoracic esophagus is unremarkable. IMPRESSION: Postsurgical changes to the right neck. Unchanged left apical pleural-parenchymal opacity, partly visualized. No acute abnormality identified. No findings to explain dysphagia. Dictated by: Dictated on workstation # [id number]
== END ==
LOC: RAD 15:23
PROVIDERS: ATTEND Otolaryngology Otolaryngology/Facial Plastic Surgery
DX: K11.8 Other diseases of salivary glands (principal); R13.10 Dysphagia, unspecified; Z90.49 Acquired absence of other specified parts of digestive tract
CPT/HCPCS: 36415; 70491; 82565; 84520

== ENCOUNTER 2018-12-28 09:22 | Outpatient (RCR) | payer MEDICARE, OTHER ==
[2018-10-04 10:31] LABS: BASOPHILS % (AUTO) 0 % (0-10); EOSINOPHILS # (AUTO) 0.1 10^3/uL (0.0-0.3); EOSINOPHILS % (AUTO) 3 % (0-10); HEMATOCRIT 48 % (40-54); HEMOGLOBIN 16.2 G/DL (13.3-17.7); LYMPHOCYTES # (AUTO) 1.4 X 10^3 (1.0-4.0); LYMPHOCYTES % (AUTO) 41 % (12-44); MEAN CORPUSCULAR HEMOGLOBIN 32 PG (25-34); MEAN CORPUSCULAR HGB CONC 34 G/DL (32-36); MEAN CORPUSCULAR VOLUME 95 FL (80-99); MEAN PLATELET VOLUME 10.3 FL (7.4-10.4); MONOCYTES # (AUTO) 0.3 X 10^3 (0.0-1.0); MONOCYTES % (AUTO) 9 % (0-12); NEUTROPHILS # (AUTO) 1.6 X 10^3 (1.8-7.8); NEUTROPHILS % (AUTO) 48 % (42-75); PLATELET COUNT 103 10^3/uL (130-400); RED CELL DISTRIBUTION WIDTH 13.6 % (10.0-14.5); WHITE BLOOD COUNT 3.4 10^3/uL (4.3-11.0)
[2018-10-04 10:50] LABS: CREATININE SERUM 1.19 MG/DL (0.60-1.30); POTASSIUM 4.2 MMOL/L (3.6-5.0)
[2018-10-04 10:51] LABS: BILIRUBIN,TOTAL 0.7 MG/DL (0.1-1.0); CALCIUM 9.9 MG/DL (8.5-10.1); TOTAL PROTEIN 6.5 GM/DL (6.4-8.2)
[2018-11-02 09:34] LABS: BASOPHILS % (AUTO) 0 % (0-10); EOSINOPHILS # (AUTO) 0.2 10^3/uL (0.0-0.3); EOSINOPHILS % (AUTO) 4 % (0-10); HEMATOCRIT 48 % (40-54); HEMOGLOBIN 16.3 G/DL (13.3-17.7); LYMPHOCYTES # (AUTO) 1.5 X 10^3 (1.0-4.0); LYMPHOCYTES % (AUTO) 41 % (12-44); MEAN CORPUSCULAR HEMOGLOBIN 32 PG (25-34); MEAN CORPUSCULAR HGB CONC 34 G/DL (32-36); MEAN CORPUSCULAR VOLUME 94 FL (80-99); MEAN PLATELET VOLUME 10.4 FL (7.4-10.4); MONOCYTES # (AUTO) 0.3 X 10^3 (0.0-1.0); MONOCYTES % (AUTO) 8 % (0-12); NEUTROPHILS # (AUTO) 1.7 X 10^3 (1.8-7.8); NEUTROPHILS % (AUTO) 47 % (42-75); PLATELET COUNT 116 10^3/uL (130-400); RED CELL DISTRIBUTION WIDTH 14.2 % (10.0-14.5); WHITE BLOOD COUNT 3.7 10^3/uL (4.3-11.0)
[2018-11-02 09:52] LABS: ALANINE AMINOTRANSFERASE 32 U/L (0-55); ALKALINE PHOSPHATASE 88 U/L (40-136); BILIRUBIN,TOTAL 0.8 MG/DL (0.1-1.0); BUN/CREATININE RATIO 16; CARBON DIOXIDE 24 MMOL/L (21-32); CHLORIDE 107 MMOL/L (98-107); CREATININE SERUM 1.14 MG/DL (0.60-1.30); GFR ESTIMATED > 60; GLUCOSE 115 MG/DL (70-105); POTASSIUM 4.6 MMOL/L (3.6-5.0); SODIUM 139 MMOL/L (135-145); TOTAL PROTEIN 6.5 GM/DL (6.4-8.2)
[~2018-12-28 09:22] MED LIST changes: -CATHETER FLUSH 10 ML SYR IV PRN; -HOLD METFORMIN - RECEIVED CONTRAST 20 ML VIAL IV SCH; -IOHEXOL 350 MG/ML 100 ML (OMNIPAQUE 350) VIAL IV ONE; -NS 100 ML (IVPB) BAG IV ONE
[2018-12-28 09:34] LABS: BASOPHILS % (AUTO) 0 % (0-10); EOSINOPHILS # (AUTO) 0.2 10^3/uL (0.0-0.3); EOSINOPHILS % (AUTO) 3 % (0-10); HEMATOCRIT 47 % (40-54); HEMOGLOBIN 16.1 G/DL (13.3-17.7); LYMPHOCYTES # (AUTO) 1.6 X 10^3 (1.0-4.0); LYMPHOCYTES % (AUTO) 36 % (12-44); MEAN CORPUSCULAR HEMOGLOBIN 32 PG (25-34); MEAN CORPUSCULAR HGB CONC 34 G/DL (32-36); MEAN CORPUSCULAR VOLUME 93 FL (80-99); MEAN PLATELET VOLUME 10.3 FL (7.4-10.4); MONOCYTES # (AUTO) 0.4 X 10^3 (0.0-1.0); MONOCYTES % (AUTO) 8 % (0-12); NEUTROPHILS # (AUTO) 2.3 X 10^3 (1.8-7.8); NEUTROPHILS % (AUTO) 52 % (42-75); PLATELET COUNT 120 10^3/uL (130-400); RED CELL DISTRIBUTION WIDTH 13.7 % (10.0-14.5); WHITE BLOOD COUNT 4.4 10^3/uL (4.3-11.0)
[2018-12-28 09:58] LABS: BILIRUBIN,TOTAL 0.4 MG/DL (0.1-1.0); CALCIUM 9.5 MG/DL (8.5-10.1); CREATININE SERUM 1.21 MG/DL (0.60-1.30); POTASSIUM 4.4 MMOL/L (3.6-5.0); TOTAL PROTEIN 6.6 GM/DL (6.4-8.2)
== END 2019-01-02 | disposition home or self-care (01) ==
LOC: ONC 09:22
PROVIDERS: ATTEND Internal Medicine Hematology & Oncology
DX: I26.99 Other pulmonary embolism without acute cor pulmonale (principal); I82.409 Acute embolism and thrombosis of unspecified deep veins of unspecified lower extremity; E78.2 Mixed hyperlipidemia; I10 Essential (primary) hypertension
CPT/HCPCS: 36415; 80053; 85025; 99213; 99214

== ENCOUNTER 2019-01-17 06:56 | Day surgery (SDC) | payer MEDICARE, OTHER ==
[2019-01-17] VITALS (10 sets, daily range): BP systolic 114–181; BP diastolic 69–93
[~2019-01-17] VITALS: Ht 185.4 cm; Wt 108.0 kg
[~2019-01-17 06:56] MED LIST changes: +HEParin (CATH LAB) 2,000 ML IV ONE; +LIDOCAINE 1% INJ 20 ML 20 ML VIAL ONE; +NS IV 1000 ML 1,000 ML ONE
[2019-01-17] MEDS ORDERED: NS IV 1000 ML 1,000 ML IV SCH ×3 (07:00→13:51)
[2019-01-17] MEDS ORDERED: SOD CHL BACTER. 10 ML (IV START) VIAL IJ ONE (07:30)
--- NOTE | 2019-01-17 07:55 | Diagnostic Imaging Report ---
INDICATION: Dyspnea. Abnormal stress test. Comparison with previous CT scan of 10/01/2016. FINDINGS: Portable chest. Right lung is well-aerated and clear. There is volume loss on the left with increased density in the left lung base. The heart is mildly enlarged. No evidence of pulmonary edema. No pneumothorax. IMPRESSION: 1. Development of left basilar pleural effusion as well as probable left basilar atelectasis. Dictated by: Dictated on workstation # [id number]
[2019-01-17] MEDS ORDERED: MIDAZOLAM 5 MG/5 ML (VERSED) VIAL ONE (09:07)
[2019-01-17] MEDS ORDERED: fentaNYL INJECTION 100 MCG/2 ML AMP ONE (09:08)
[2019-01-17] MEDS ORDERED: ADENOSINE 3 MG/1 ML (ADENOSCAN) 30ML VIAL IV ONE (09:50)
[2019-01-17] MEDS ORDERED: HEParin 1000 UNIT/ML (10ML VIAL) FOR BOLUS ONE (09:50)
[2019-01-17] MEDS ORDERED: NS IV 1000 ML 1,000 ML ONE (10:59)
--- NOTE | 2019-01-17 12:51 | Cardiac Procedure Note-CS/ASA ---
Pre-Procedure Note Pre-Op Procedure Note H&P Reviewed The H&P was reviewed, patient examined and no changes noted. Date H&P Reviewed: Jan 17, 2019 Time H&P Reviewed: 09:00 Conscious Sedation Pre-Proced Time 09:00 ASA Score 3 For ASA 3 and 4: Consider anesthesia and medical clearance. Also, for patients with a history of failed moderate sedation consider anesthesia. Airway Lungs Heart ASA score ASA 1: a normal healthy patient ASA 2: a patient with a mild systemic disease (mid diabetes, controlled hypertension, obesity x ASA 3: a patient with a severe systemic disease that limits activity (angina, COPD, prior Myocardial infarction) ASA 4: a patient with an incapacitating disease that is a constant threat to life (CHF, renal failure) ASA 5: a moribund patient not expected to survive 24 hrs. (ruptured aneurysm) ASA 6: a declared brain- patient whose organs are being harvested. For emergent operations, add the letter E after the classification Mallampati Classification Grade 3 Sedation Plan Analgesia, Amnesia, Plan communicated to team members, Discussed options with patient/fam, Discussed risks with patient/fam The patient is an appropriate candidate to undergo the planned procedure, sedation, and anesthesia. The patient immediately re-assessed prior to indication. NORTH FISHER MD Jan 17, 2019 12:51
--- NOTE | 2019-01-17 12:54 | Cardiac Cath Report ---
Cardiac Cath Report Physician (s)/Recovery Manager (s) Physician NORTH FISHER MD Pre-Procedure Diagnosis Pre-Procedure Diagnosis: coronary artery disease Post-Procedure Note Procedure Start Date: Jan 17, 2019 Name of Procedure: Left heart catheterization FFR to the right coronary artery Findings/Procedure Note PROCEDURE NOTE: 78 years old gentleman with history of hypertension, hyperlipidemia, had an abnormal stress test, scheduled for cardiac catheterization possible PTCA. After explaining the procedure to the patient, all pros and cons were explained, all questions were answered. The patient signed the consent and then he was placed on the cardiac catheterization laboratory. Groin was prepped SL fashion local anesthesia was used. Sheath placed in the right femoral artery. Palemr right and left catheter were used to access the coronary system. Pigtail was used to access the left ventricular cavity. Left ventriculogram was not done, pressure was measured Patient was given 3000 units of heparin, FFR wire was advanced through the right coronary artery, baseline was 0.96, adenosine drip was given and the lowest FFR was 0.89 At the end of the procedure the sheath was removed. Closure device was used FINDINGS: Hemodynamics LV 122/15, end-diastolic pressure 15 Aorta 124/54 mean of 82 ANATOMY: Left Main is free of obstructive disease Left Anterior Descending has 50 percent stenosis at the midportion, first diagonal branch has 70 percent stenosis at the midportion fairly small artery, medical therapy is recommended Left Circumflex is moderate in size with no significant obstructive disease Right Coronory Artery is dominant artery with 50-60 percent stenosis, FFR was 0.89 after adenosine drip LV Gram was not done, pressure was measured CONCLUSION: 1. Mild to moderate stenosis in the midright coronary artery, FFR 0.89 2. 70 percent stenosis in the mid first diagonal artery, fairly small artery, medical therapy is recommended 3. 50 percent mid LAD stenosis 4. Otherwise nonobstructive disease DISCUSSION AND RECOMMENDATION: continue with medical therapy no intervention is needed Anesthesia Type: Conscious Sedation Estimated blood loss (mL): 25 ml Contrast Amount: 65 ml Total Radiation Dose: 563 mGy Post-Procedure Diagnosis Post-operative diagnosis: Chest pain Coronary artery disease Hypertension Hyperlipidemia NORTH FISHER MD Jan 17, 2019 12:54
--- NOTE | 2019-01-17 12:57 | Discharge Inst-Post CATH ---
Discharge Inst-CATH/EP Post Cardiac Cath/EP D/C Inst Follow Up/Plan Appointment with Dr. Mullen's office in 2-4 weeks <b>CARDIAC CATH/EP PROCEDURE DISCHARGE INSTRUCTIONS</b> Cardiac Rehab Please be expecting a follow up call from Cardiac Rehab within in one week. ACTIVITY * Go Home directly and rest. * Limit activity of the leg (or wrist if it was used) for 7 days including aerobics, swimming, jogging, bicycling, etc. * Restrict stair-climbing for 7 days if possible, if not, climb up with your non-cath leg, then bring together on the same step. * Avoid lifting, pushing, pulling or excessive movement of the affected extremity for 7 days. * Customary sexual activity may be resumed after 2 days-use caution not to use a position that strains or causes pain to the affected extremity. * No driving for 24 hours. * NO SMOKING. * Avoid straining for bowel movements for 7 days. * Gentle walking on level ground is allowed. * Returning to work will depend on the type of procedure and the results. Your doctor will discuss this with you. CALL YOUR DOCTOR FOR ANY OF THE FOLLOWING: *If bleeding from the puncture site occurs- Apply gentle pressure to site with clean cloth and call your doctor or EMS. * If a knot or lump forms under the skin, increases in size, or causes pain. * If bruising appears to be worsening or moving further down your leg instead of disappearing. * Temperature above 101 F. CARE OF YOUR GROIN INCISION; * Bruising or purple discoloration of the skin near the puncture site is common. * You may shower only, no bathtub bathing for 5 days. Be careful to avoid slipping as your leg may feel stiff. * If a closure device was used on your femoral artery, please see the attached guide regarding care of the device and your leg. * Leave dressing on FOR 24 hours. CARE OF YOUR WRIST INCISION; * Bruising or purple discoloration of the skin near the puncture site is common. * You may shower. * DO NOT submerge wrist. * Leave dressing on FOR 24 hours. NORTH MULLEN MD Jan 17, 2019 12:57
[2019-01-17] MEDS ORDERED: TAMS0.4C98 PO (12:58)
[2019-01-17] MEDS ORDERED: ESOM20CA PO (12:58)
[2019-01-17] MEDS ORDERED: PATIENT MAY USE OWN MEDS, ALL PO SCH ×2 (13:00→14:00)
[2019-01-17 13:13] LABS: PROTHROMBIN TIME PATIENT 13.6 SEC (12.2-14.7)
[2019-01-17 13:42] LABS: MEAN PLATELET VOLUME 10.3 FL (7.4-10.4); RED CELL DISTRIBUTION WIDTH 13.7 % (10.0-14.5); WHITE BLOOD COUNT 4.9 10^3/uL (4.3-11.0)
[2019-01-17 13:49] LABS: BILIRUBIN,URINE NEGATIVE (NEGATIVE); GLUCOSE, URINE (UA) NEGATIVE (NEGATIVE); KETONES,URINE NEGATIVE (NEGATIVE); LEUKOCYTE ESTERASE ,URINE NEGATIVE (NEGATIVE); NITRITE,URINE NEGATIVE (NEGATIVE); PH,URINE 5 (5-9); PROTEIN,URINE NEGATIVE (NEGATIVE); UROBILINOGEN,URINE NORMAL (NORMAL)
[2019-01-17 13:50] LABS: BACTERIA,URINE NEGATIVE /HPF; CLARITY,URINE CLEAR; COLOR,URINE YELLOW
[2019-01-17 14:55] LABS: ALBUMIN 4.3 GM/DL (3.2-4.5); BILIRUBIN,TOTAL 0.8 MG/DL (0.1-1.0); CALCIUM 9.9 MG/DL (8.5-10.1); CREATININE SERUM 1.3 MG/DL (0.60-1.30); POTASSIUM 4.2 MMOL/L (3.6-5.0); TOTAL PROTEIN 7.1 GM/DL (6.4-8.2)
== END 2019-01-17 15:34 | disposition home or self-care (01) ==
LOC: CATH 06:56 → SDC 10:30 → CATH 15:34
PROVIDERS: ATTEND Internal Medicine Cardiovascular Disease
DX: I25.10 Atherosclerotic heart disease of native coronary artery without angina pectoris (principal); I10 Essential (primary) hypertension; E78.2 Mixed hyperlipidemia; I65.23 Occlusion and stenosis of bilateral carotid arteries; Z85.118 Personal history of other malignant neoplasm of bronchus and lung; Z86.711 Personal history of pulmonary embolism; Z92.21 Personal history of antineoplastic chemotherapy; Z79.899 Other long term (current) drug therapy; Z87.891 Personal history of nicotine dependence; D69.6 Thrombocytopenia, unspecified; Z86.718 Personal history of other venous thrombosis and embolism; Z92.3 Personal history of irradiation
CPT/HCPCS: 36415; 36430; 71045; 80053; 80061; 81000; 85027; 85347; 85610; 85730; 87081; 93458

== ENCOUNTER 2019-06-21 10:00 | Outpatient (RCR) | payer MEDICARE, OTHER ==
[~2019-06-21 10:00] MED LIST changes: +ESOM20CA PO; -HEParin (CATH LAB) 2,000 ML IV ONE; -LIDOCAINE 1% INJ 20 ML 20 ML VIAL ONE; -NS IV 1000 ML 1,000 ML ONE; +TMSL.4C PO
[2019-06-21 10:11] LABS: BASOPHILS % (AUTO) 0 % (0-10); EOSINOPHILS # (AUTO) 0.1 10^3/uL (0.0-0.3); EOSINOPHILS % (AUTO) 2 % (0-10); HEMATOCRIT 47 % (40-54); HEMOGLOBIN 15.9 G/DL (13.3-17.7); LYMPHOCYTES # (AUTO) 1.5 X 10^3 (1.0-4.0); LYMPHOCYTES % (AUTO) 35 % (12-44); MEAN CORPUSCULAR HEMOGLOBIN 32 PG (25-34); MEAN CORPUSCULAR HGB CONC 34 G/DL (32-36); MEAN CORPUSCULAR VOLUME 95 FL (80-99); MEAN PLATELET VOLUME 9.8 FL (7.4-10.4); MONOCYTES # (AUTO) 0.3 X 10^3 (0.0-1.0); MONOCYTES % (AUTO) 8 % (0-12); NEUTROPHILS # (AUTO) 2.5 X 10^3 (1.8-7.8); NEUTROPHILS % (AUTO) 56 % (42-75); PLATELET COUNT 113 10^3/uL (130-400); RED CELL DISTRIBUTION WIDTH 13.3 % (10.0-14.5); WHITE BLOOD COUNT 4.4 10^3/uL (4.3-11.0)
[2019-06-21 10:31] LABS: ALANINE AMINOTRANSFERASE 33 U/L (0-55); ALKALINE PHOSPHATASE 88 U/L (40-136); BILIRUBIN,TOTAL 0.8 MG/DL (0.1-1.0); BUN/CREATININE RATIO 17; CALCIUM 9.4 MG/DL (8.5-10.1); CARBON DIOXIDE 25 MMOL/L (21-32); CHLORIDE 108 MMOL/L (98-107); CREATININE SERUM 1.15 MG/DL (0.60-1.30); GFR ESTIMATED > 60; GLUCOSE 139 MG/DL (70-105); POTASSIUM 4.3 MMOL/L (3.6-5.0); SODIUM 139 MMOL/L (135-145); TOTAL PROTEIN 6.4 GM/DL (6.4-8.2)
== END 2019-09-19 | disposition home or self-care (01) ==
LOC: ONC 10:00
PROVIDERS: ATTEND Internal Medicine Hematology & Oncology
DX: I82.492 Acute embolism and thrombosis of other specified deep vein of left lower extremity (principal); K21.9 Gastro-esophageal reflux disease without esophagitis; D69.6 Thrombocytopenia, unspecified; I26.99 Other pulmonary embolism without acute cor pulmonale; Z85.118 Personal history of other malignant neoplasm of bronchus and lung; D72.819 Decreased white blood cell count, unspecified; I25.10 Atherosclerotic heart disease of native coronary artery without angina pectoris; R13.12 Dysphagia, oropharyngeal phase; M19.90 Unspecified osteoarthritis, unspecified site; Z90.2 Acquired absence of lung [part of]; Z92.21 Personal history of antineoplastic chemotherapy
CPT/HCPCS: 36415; 80053; 85025; 99213

== ENCOUNTER → 2019-07-27 | Outpatient (CLI) | payer MEDICARE, OTHER ==
[~2019-07-27] MED LIST changes: +HOLD METFORMIN - RECEIVED CONTRAST 20 ML VIAL IV SCH; +IOHEXOL 350 MG/ML 100 ML (OMNIPAQUE 350) VIAL IV ONE; +NS 100 ML (IVPB) BAG IV ONE; +TAMS0.4C98 PO; -TMSL.4C PO
[2019-07-27 08:15] LABS: BUN/CREATININE RATIO 17; CREATININE SERUM 1.15 MG/DL (0.60-1.30); GFR ESTIMATED > 60
--- NOTE | 2019-07-27 09:13 | Diagnostic Imaging Report ---
EXAMINATION: CT Chest with intravenous contrast. TECHNIQUE: Multiple contiguous axial images were obtained through the chest after the uneventful administration of intravenous contrast. All CT scans use one or more of the following dose optimizing techniques: automated exposure control, MA and/or KvP adjustment based on a patient size and exam type, or iterative reconstruction. INDICATION: Lung cancer. COMPARISON: 10/01/2016 FINDINGS: There are postsurgical changes of left upper lobectomy. Scarring is seen in the left apex, similar to previous exam. No edema or pneumonia. No pleural effusion or pneumothorax. There are no suspicious pulmonary nodules. 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 No pulmonary embolism is seen. Heart size is normal. No pericardial effusion. Aorta is normal in caliber. There is no axillary or supraclavicular lymphadenopathy. There is no mediastinal lymphadenopathy. Limited views of the upper abdomen are unremarkable. There are no suspicious osseus lesions. IMPRESSION: 1. Status post left upper lobectomy without evidence for recurrent metastatic disease. 2. No pulmonary embolism is seen. Dictated by: Dictated on workstation # [id number]
== END ==
LOC: RAD 07:45
PROVIDERS: ATTEND Family Medicine
DX: Z85.118 Personal history of other malignant neoplasm of bronchus and lung (principal)
CPT/HCPCS: 36415; 71260; 82565; 84520

== ENCOUNTER → 2019-11-14 | Outpatient (CLI) | payer MEDICARE, OTHER ==
[~2019-11-14] MED LIST changes: -HOLD METFORMIN - RECEIVED CONTRAST 20 ML VIAL IV SCH; -IOHEXOL 350 MG/ML 100 ML (OMNIPAQUE 350) VIAL IV ONE; -NS 100 ML (IVPB) BAG IV ONE; -TAMS0.4C98 PO; +TMSL.4C PO
--- NOTE | 2019-11-14 12:10 | Diagnostic Imaging Report ---
INDICATION: History of lung cancer. Cough. Upper back pain. COMPARISON: Chest radiograph dated 01/17/2019 FINDINGS: Frontal and lateral radiographic views of the chest were obtained and again show asymmetric volume loss in the left with opacification of the left apex and asymmetric elevation lateral left hemidiaphragm. Right lung is relatively clear. No large effusion or pneumothorax is seen on either side. Cardiac silhouette and pulmonary vasculature are within normal limits. Osseous structures show no gross acute abnormalities. IMPRESSION: 1. Chronic changes to the left lung, but no new acute cardiopulmonary process. Dictated by: Dictated on workstation # [id number]
--- NOTE | 2019-11-14 12:18 | Diagnostic Imaging Report ---
INDICATION: Cough and upper back pain. TIME OF EXAM: 11:57 AM. TECHNIQUE: Frontal and lateral views of the thoracic spine were obtained. FINDINGS: The curvature and alignment are normal. The vertebral body heights are maintained. No acute compression fracture is identified. There appear to be bridging osteophytes at multiple levels. The possibility of ankylosing spondylitis could not be entirely excluded. The upper chest again demonstrates retraction of the left hilum with opacity in the left apex, similar to the chest radiograph dating back to December 2018. IMPRESSION: No acute bony abnormality is detected. Dictated by: Dictated on workstation # [id number]
== END ==
LOC: RAD 11:35
PROVIDERS: ATTEND Family Medicine
DX: M54.9 Dorsalgia, unspecified (principal); R05 Cough
CPT/HCPCS: 71046; 72072

== ENCOUNTER → 2020-01-17 | Outpatient (CLI) | payer MEDICARE, OTHER ==
[2020-01-17 14:58] LABS: BASOPHILS % (AUTO) 0 % (0-10); EOSINOPHILS # (AUTO) 0.1 10^3/uL (0.0-0.3); EOSINOPHILS % (AUTO) 2 % (0-10); HEMATOCRIT 50 % (40-54); HEMOGLOBIN 16.5 G/DL (13.3-17.7); LYMPHOCYTES # (AUTO) 1.8 X 10^3 (1.0-4.0); LYMPHOCYTES % (AUTO) 28 % (12-44); MEAN CORPUSCULAR HEMOGLOBIN 32 PG (25-34); MEAN CORPUSCULAR HGB CONC 33 G/DL (32-36); MEAN CORPUSCULAR VOLUME 97 FL (80-99); MEAN PLATELET VOLUME 9.4 FL (7.4-10.4); MONOCYTES # (AUTO) 0.6 X 10^3 (0.0-1.0); MONOCYTES % (AUTO) 10 % (0-12); NEUTROPHILS # (AUTO) 3.8 X 10^3 (1.8-7.8); NEUTROPHILS % (AUTO) 60 % (42-75); PLATELET COUNT 139 10^3/uL (130-400); RED CELL DISTRIBUTION WIDTH 13.5 % (10.0-14.5); WHITE BLOOD COUNT 6.3 10^3/uL (4.3-11.0)
[2020-01-17 15:21] LABS: ALANINE AMINOTRANSFERASE 42 U/L (0-55); ALBUMIN 3.9 GM/DL (3.2-4.5); ALKALINE PHOSPHATASE 79 U/L (40-136); BILIRUBIN,TOTAL 0.6 MG/DL (0.1-1.0); BUN/CREATININE RATIO 22; CALCIUM 9.8 MG/DL (8.5-10.1); CARBON DIOXIDE 26 MMOL/L (21-32); CHLORIDE 107 MMOL/L (98-107); CREATININE SERUM 1.09 MG/DL (0.60-1.30); GFR ESTIMATED > 60; GLUCOSE 111 MG/DL (70-105); POTASSIUM 4.5 MMOL/L (3.6-5.0); SODIUM 138 MMOL/L (135-145); TOTAL PROTEIN 6.8 GM/DL (6.4-8.2)
== END ==
LOC: EDSTATUS 09-20 11:40 → ONC 14:49
PROVIDERS: ATTEND Internal Medicine Hematology & Oncology
DX: D69.6 Thrombocytopenia, unspecified (principal); C34.90 Malignant neoplasm of unspecified part of unspecified bronchus or lung; I82.492 Acute embolism and thrombosis of other specified deep vein of left lower extremity; I26.99 Other pulmonary embolism without acute cor pulmonale; K92.89 Other specified diseases of the digestive system; I25.10 Atherosclerotic heart disease of native coronary artery without angina pectoris
CPT/HCPCS: 80053; 85025; G0463; 99213

== ENCOUNTER → 2020-03-14 | Outpatient (CLI) | payer MEDICARE, OTHER ==
--- NOTE | 2020-03-14 16:12 | Diagnostic Imaging Report ---
PROCEDURE: US left lower extremity venous. TECHNIQUE: Multiple real-time grayscale images were obtained over the left lower extremity in various projections. Additional duplex Doppler and color Doppler images were also obtained. INDICATION: Pain and swelling. FINDINGS: The left common femoral, superficial femoral, popliteal veins and tibial veins demonstrate normal response to compression, augmentation, and Valsalva. There are no abnormal left lower extremity fluid collections or masses. IMPRESSION: No evidence of deep venous thrombosis in the left lower extremity. Dictated by: Dictated on workstation # [id number]
== END ==
LOC: RAD 15:19
PROVIDERS: ATTEND Nurse Practitioner Family
DX: M79.662 Pain in left lower leg (principal); M79.89 Other specified soft tissue disorders

== ENCOUNTER → 2021-01-15 | Outpatient (CLI) | payer MEDICARE, OTHER ==
[2021-01-15 15:08] LABS: BASOPHILS % (AUTO) 0 % (0-10); EOSINOPHILS # (AUTO) 0.2 10^3/uL (0.0-0.3); HEMATOCRIT 48 % (40-54); MONOCYTES # (AUTO) 0.5 10^3/uL (0.0-1.0)
[2021-01-15 15:10] LABS: EOSINOPHILS % (AUTO) 3 % (0-10); HEMOGLOBIN 16.1 g/dL (13.3-17.7); LYMPHOCYTES # (AUTO) 1.7 10^3/uL (1.0-4.0); LYMPHOCYTES % (AUTO) 29 % (12-44); MEAN CORPUSCULAR HEMOGLOBIN 32 pg (25-34); MEAN CORPUSCULAR HGB CONC 33 g/dL (32-36); MEAN CORPUSCULAR VOLUME 96 fL (80-99); MONOCYTES % (AUTO) 8 % (0-12); NEUTROPHILS # (AUTO) 3.7 10^3/uL (1.8-7.8); NEUTROPHILS % (AUTO) 61 % (42-75); PLATELET COUNT 137 10^3/uL (130-400); WHITE BLOOD COUNT 6.1 10^3/uL (4.3-11.0)
[2021-01-15 15:26] LABS: ALBUMIN 3.8 GM/DL (3.2-4.5); BILIRUBIN,TOTAL 0.8 MG/DL (0.1-1.0); CALCIUM 9.8 MG/DL (8.5-10.1); CREATININE SERUM 1.2 MG/DL (0.60-1.30); POTASSIUM 4.5 MMOL/L (3.6-5.0); TOTAL PROTEIN 6.8 GM/DL (6.4-8.2)
== END ==
LOC: ONC 14:57
PROVIDERS: ATTEND Internal Medicine Hematology & Oncology
DX: I25.10 Atherosclerotic heart disease of native coronary artery without angina pectoris (principal); I10 Essential (primary) hypertension; E78.2 Mixed hyperlipidemia; R71.8 Other abnormality of red blood cells; Z85.118 Personal history of other malignant neoplasm of bronchus and lung; Z90.2 Acquired absence of lung [part of]; Z92.3 Personal history of irradiation; Z92.21 Personal history of antineoplastic chemotherapy; Z86.718 Personal history of other venous thrombosis and embolism; Z86.711 Personal history of pulmonary embolism
CPT/HCPCS: 80053; 85025; G0463; 99213

== ENCOUNTER → 2021-08-13 | Outpatient (CLI) | payer MEDICARE ==
--- NOTE | 2021-08-13 12:13 | Diagnostic Imaging Report ---
INDICATION: Neck pain. TIME OF EXAM: 11:51 AM Curvature and alignment of the cervical spine is normal. There appears to be osseous fusion between the C5 and C6 as well as C6 and C7 vertebral bodies. Prevertebral tissues are normal. Odontoid appears intact. No fractures are seen. IMPRESSION: Postoperative changes lower cervical fusion. No acute bony abnormality is detected. Dictated by: Dictated on workstation # [id number]
--- NOTE | 2021-08-13 12:14 | Diagnostic Imaging Report ---
INDICATION: Chest pain. TIME OF EXAM: 11:50 AM CORRELATION is made with prior chest from 11/14/2019. Volume loss left hemithorax with opacification of the left apex is again noted and similar to prior exam. Left hilar structures are retracted cephalad. Right lung remains clear. There is no infiltrate or effusion. There is no pneumothorax. IMPRESSION: Stable chronic changes when compared to the exam from 11/14/2019. Dictated by: Dictated on workstation # [id number]
--- NOTE | 2021-08-13 12:16 | Diagnostic Imaging Report ---
INDICATION: Neck pain and back pain. TIME OF EXAM: 11:57 AM CORRELATION is made with prior study from 11/14/2019. Curvature and alignment of the thoracic spine appears normal. Numerous bridging osteophytes are again noted, again raising question of ankylosing spondylitis. This appears similar to prior study. Vertebral body heights are maintained. There is no acute compression fracture identified. Paraspinous line is intact. Chronic changes left hemithorax are again noted and described on chest radiograph of the same day. IMPRESSION: Stable appearance to the thoracic spine when compared with the examination from 11/14/2019. Dictated by: Dictated on workstation # [id number]
== END ==
LOC: RAD 11:19
PROVIDERS: ATTEND Nurse Practitioner Family
DX: M54.2 Cervicalgia (principal); M54.6 Pain in thoracic spine; Z85.118 Personal history of other malignant neoplasm of bronchus and lung; Z98.1 Arthrodesis status
CPT/HCPCS: 71046; 72040; 72072

== ENCOUNTER → 2021-10-05 | Outpatient (CLI) | payer MEDICARE | LOC: CARD 10:00 | PROVIDERS: ATTEND Internal Medicine Cardiovascular Disease | DX: I11.9 Hypertensive heart disease without heart failure (principal) | CPT/HCPCS: 93306 ==

== ENCOUNTER → 2021-11-18 | Outpatient (CLI) | payer MEDICARE ==
[~2021-11-18] VITALS: Ht 185 cm; Wt 106.8 kg
[~2021-11-18] MED LIST changes: +NS IV 1000 ML 1,000 ML IV ONE; +NS IV 1000 ML 1,000 ML ONE; +ONDANSETRON 4 MG/2 ML (SDV) Z0FRAN IV ONE; +ONDANSETRON 4 MG/2 ML (SDV) Z0FRAN ONE
[2021-11-18 14:04] VITALS: BP 138/70
== END ==
LOC: SDC 13:32
PROVIDERS: ATTEND Nurse Practitioner Family
DX: R11.0 Nausea (principal); R19.7 Diarrhea, unspecified
CPT/HCPCS: 96360; 96374

== ENCOUNTER → 2023-04-22 | Outpatient (CLI) | payer MEDICARE ==
[~2023-04-22] MED LIST changes: -NS IV 1000 ML 1,000 ML IV ONE; -NS IV 1000 ML 1,000 ML ONE; -ONDANSETRON 4 MG/2 ML (SDV) Z0FRAN IV ONE; -ONDANSETRON 4 MG/2 ML (SDV) Z0FRAN ONE
--- NOTE | 2023-04-22 11:07 | Diagnostic Imaging Report ---
INDICATION: Cough. History of asbestos exposure. History of lung cancer. COMPARISON: 08/13/2021. FINDINGS: Frontal and lateral radiographic views of the chest were obtained and show chronic volume loss on the left, stable compared to prior exams. Otherwise, lungs are clear. No large effusion or pneumothorax is seen. Cardiac silhouette and pulmonary vasculature are within normal limits. Osseous structures show no gross acute abnormalities. IMPRESSION: 1. Stable chronic changes. No new acute cardiopulmonary process. Dictated by: Dictated on workstation # [id number]
== END ==
LOC: RAD 10:04
PROVIDERS: ATTEND Family Medicine
DX: J61 Pneumoconiosis due to asbestos and other mineral fibers (principal)
CPT/HCPCS: 71046

== ENCOUNTER → 2023-05-16 | Outpatient (CLI) | payer MEDICARE ==
[~2023-05-16] MED LIST changes: +ACET-2650 PO; +CATHETER FLUSH 10 ML SYR IVP PRN; +CHOL10004 PO; +ESOM20TA PO; +LACT1TAB13 PO; +LOSA100T58 PO; +MECL-291 PO; +NF-ALLE180 PO; +PROP1.5D OP; +REGADENOSON 0.4 MG/5 ML SYR IV ONE; +RIVA20TA PO; +ROSU5TAB13 PO
[2023-05-16 10:08] VITALS: BP 165/79
--- NOTE | 2023-05-16 12:08 | Cardiology Stress Test Report ---
Stress Test Report Date of Procedure/Referring: Date of Procedure: May 16, 2023 PCP Tona Hernández MD Admitting Physician Admitting Physician: Attending Physician: Jazmin Avila Pa-C Baseline Heart Rate: 72 Baseline Blood Pressure: Blood Pressure Systolic: 165 Blood Pressure Diastolic: 79 Baseline Vitals Vital Signs Date Time Temp Pulse Resp B/P (MAP) Pulse Ox O2 Delivery O2 Flow Rate FiO2 05/16/23 10:08 72 165/79 (107) 96 Baseline EKG: Baseline EKG: NSR Summary After explaining the procedure to the patient, he signed a consent and then brought to the stress nuclear laboratory. Patient received 0.4 mg Lexiscan for stress test, ECG, heart rate and blood pressure were monitored continuously. Resting and stress dose of radio tracer were injected, imaging was acquired and reviewed in short axis, horizontal long axis and vertical long axis views. TID: 1.11 SSS: 8 SDS: 5 EF: 55 Patient tolerated Lexiscan well Diaphragmatic attenuation with reversible ischemia involving the mid to apical anterior wall and anterolateral wall Normal left ventricular size, ejection fraction 55% Copy Copies To 1: TONA HERNÁNDEZ MD, BASHAR J MD May 16, 2023 12:08
== END ==
LOC: CARD 08:10
PROVIDERS: ATTEND Physician Assistant
DX: J98.6 Disorders of diaphragm (principal); I10 Essential (primary) hypertension
CPT/HCPCS: 78452; 93017; A9502

== ENCOUNTER 2023-05-25 12:02 | Day surgery (SDC) | payer MEDICARE ==
[~2023-05-25] VITALS: Ht 185.4 cm; Wt 107.9 kg
[2023-05-25] VITALS: BP 150/74
[~2023-05-25 12:02] MED LIST changes: -ACET-2650 PO; -CATHETER FLUSH 10 ML SYR IVP PRN; -CHOL10004 PO; -ESOM20TA PO; -LACT1TAB13 PO; -LOSA100T58 PO; -MECL-291 PO; -NF-ALLE180 PO; -PROP1.5D OP; -REGADENOSON 0.4 MG/5 ML SYR IV ONE; -RIVA20TA PO; -ROSU5TAB13 PO
[2023-05-25] MEDS ORDERED: HEParin (CATH LAB) 2,000 ML IV ONE (12:10)
[2023-05-25] MEDS ORDERED: LIDOCAINE 1% INJ 20 ML VIAL ONE (12:10)
[2023-05-25] MEDS ORDERED: NS IV 1000 ML 1,000 ML ONE (12:10)
[2023-05-25 12:35] VITALS: BP 185/90
--- NOTE | 2023-05-25 12:42 | Diagnostic Imaging Report ---
EXAMINATION: Chest 1 view HISTORY: Abnormal stress test COMPARISON: 01/17/2019 FINDINGS: There is unchanged volume loss in the left hemithorax. There is distortion of the left hilum, unchanged. No edema or pneumonia. No pleural effusion or pneumothorax. IMPRESSION: 1. Clear lungs. 2. Left-sided volume loss and distortion of the alexa suggestive of prior lobectomy. Dictated by: Dictated on workstation # [id number]
[2023-05-25 12:47] LABS: HEMOGLOBIN 16.8 g/dL (13.3-17.7); MEAN PLATELET VOLUME 9.9 fL (9.0-12.2); WHITE BLOOD COUNT 5.1 10^3/uL (4.3-11.0)
[2023-05-25 12:52] LABS: BACTERIA,URINE NEGATIVE /HPF; BILIRUBIN,URINE NEGATIVE (NEGATIVE); CLARITY,URINE CLEAR; COLOR,URINE YELLOW; GLUCOSE, URINE (UA) NEGATIVE (NEGATIVE); KETONES,URINE NEGATIVE (NEGATIVE); LEUKOCYTE ESTERASE ,URINE NEGATIVE (NEGATIVE); NITRITE,URINE NEGATIVE (NEGATIVE); PH,URINE 5.5 (5-9); PROTEIN,URINE NEGATIVE (NEGATIVE)
[2023-05-25 12:56] LABS: INR 1.1 (0.8-1.4); PROTHROMBIN TIME PATIENT 14.5 SEC (12.2-14.7)
[2023-05-25] MEDS ORDERED: ESOM20TA PO ×2 (12:59)
[2023-05-25] MEDS ORDERED: NF-ALLE180 PO ×2 (12:59)
[2023-05-25] MEDS ORDERED: ROSU5TAB13 PO ×2 (12:59)
[2023-05-25] MEDS ORDERED: MECL-291 PO ×2 (12:59)
[2023-05-25] MEDS ORDERED: ACET-2650 PO ×2 (12:59)
[2023-05-25] MEDS ORDERED: CHOL10004 PO ×2 (12:59)
[2023-05-25] MEDS ORDERED: PROP1.5D OP ×2 (12:59)
[2023-05-25] MEDS ORDERED: RIVA20TA PO ×2 (12:59)
[2023-05-25] MEDS ORDERED: LOSA100T58 PO ×2 (12:59)
[2023-05-25] MEDS ORDERED: TMSL.4C PO ×2 (12:59)
[2023-05-25] MEDS ORDERED: LACT1TAB13 PO ×2 (12:59)
[2023-05-25 13:03] LABS: ALBUMIN 4.4 GM/DL (3.2-4.5); BILIRUBIN,TOTAL 1.2 MG/DL (0.1-1.0); CALCIUM 10.3 MG/DL (8.5-10.1); CREATININE SERUM 1.18 MG/DL (0.60-1.30); POTASSIUM 4.2 MMOL/L (3.6-5.0); TOTAL PROTEIN 7.5 GM/DL (6.4-8.2)
--- NOTE | 2023-05-25 13:21 | Cardiac Procedure Note-CS/ASA ---
Pre-Procedure Note Pre-Op Procedure Note Date of Available H&P: May 16, 2023 Date H&P Reviewed: May 25, 2023 Time H&P Reviewed: 13:20 History & Physical: H&P Reviewed, Patient Examed, No changes noted Pre-Operative Diagnosis: coronary artery disease Moderate Sedation PreProcedure Time 13:21 ASA Score 3 Airway Lungs Heart ASA score ASA 1: a normal healthy patient ASA 2: a patient with a mild systemic disease (mid diabetes, controlled hypertension, obesity ASA 3: a patient with a severe systemic disease that limits activity (angina, COPD, prior Myocardial infarction) ASA 4: a patient with an incapacitating disease that is a constant threat to life (CHF, renal failure) ASA 5: a moribund patient not expected to survive 24 hrs. (ruptured aneurysm) ASA 6: a declared brain- patient whose organs are being harvested. For emergent operations, add the letter E after the classification Mallampati Classification Grade 3 Sedation Plan Analgesia, Amnesia, Plan communicated to team members, Discussed options with patient/fam, Discussed risks with patient/fam The patient is an appropriate candidate to undergo the planned procedure, sedation, and anesthesia. The patient immediately re-assessed prior to indication. NORTH FISHER MD May 25, 2023 13:21
[2023-05-25] MEDS ORDERED: VERAPAMIL 5 MG/2 ML (CALAN) VIAL IV ONE (13:29)
[2023-05-25] MEDS ORDERED: MIDAZOLAM INJ 5 MG/5 ML VIAL ONE (13:29)
[2023-05-25] MEDS ORDERED: NITRO DRIP 25000 MCG/D5W 0 ML IV ONE (13:29)
[2023-05-25] MEDS ORDERED: fentaNYL INJECTION 100 MCG/2 ML VIAL ONE (13:29)
[2023-05-25] MEDS ORDERED: HEParin 1000 UNIT/ML (10ML VIAL) FOR BOLUS ONE (13:30)
[2023-05-25] MEDS ORDERED: ASPIRIN 325 MG TABLET ONE (14:33)
[2023-05-25] MEDS ORDERED: CLOPIDOGREL 300 MG TABLET PO ONE (14:33)
--- NOTE | 2023-05-25 14:43 | Cardiac Cath Report ---
Cardiac Cath Report Physician (s)/[employer] (s) Physician NORTH FISHER MD Pre-Procedure Diagnosis Pre-Procedure Diagnosis: coronary artery disease Post-Procedure Note Procedure Start Date: May 25, 2023 Name of Procedure: Left heart catheterization IFR to the LAD Stenting to the LAD Findings/Procedure Note PROCEDURE NOTE: 82-year-old gentleman with history of hypertension, hyperlipidemia and coronary artery disease, had an abnormal stress test, cardiac catheterization was advised. After explaining the procedure to the patient, all pros and cons were explained, all questions were answered. The patient signed the consent and then he was placed in the cardiac catheterization laboratory. Groin was prepped in SL fashion local anesthesia was used. Sheath placed in the right femoral artery. Palmer' right and left catheter were used to access the coronary system. Palmer right was prolapsed to the left ventricular cavity, pressure was measured, pullback LV to aorta was done. Patient had 80% stenosis in the mid LAD. iFR wire was advanced and parked distally baseline IFR was 0.61. Primary stenting using Skypoint 3 x 23 mm expanded to 3.1 mm under 15 nica, postintervention there was no residual stenosis, IFR 0.94. At the end of the procedure the sheath was removed. Closure device was deployed FINDINGS: Hemodynamics LV 122/13, end-diastolic pressure of 13 Aorta 122/55 mean of 82 ANATOMY: Left Main is free of obstructive disease Left Anterior Descending has 80% mid LAD stenosis successful stenting using Skypoint 3 x 23 mm with 0% residual stenosis. Diagonal artery is a very small artery with severe disease not amendable to intervention Left Circumflex is moderate in size with no obstructive disease Right Coronary Artery is dominant artery with 10% stenosis at the midportion LV Gram was not done, pressure was measured PERCUTANEOUS INTERVENTION: Pre stenosis 80% Post Stenosis 0% Pre NICK flow 2 Post NICK flow 3 Dominance right coronary artery CONCLUSION: 80% stenosis in the mid LAD with successful stenting using Skypoint 3 x 23 mm with 0% residual stenosis Severe stenosis in the mid diagonal artery very small artery not amendable to intervention Mild stenosis in the mid right coronary artery which will be monitored Normal left ventricular end-diastolic pressure DISCUSSION AND RECOMMENDATION: Patient was loaded with aspirin and Plavix. I will increase Crestor to 10 mg da vane Anesthesia Type: Conscious Sedation Estimated blood loss (mL): 20 ml Contrast Amount: 105 ml Post-Procedure Diagnosis Post-operative diagnosis: Chest pain Coronary artery disease Hypertension Hyperlipidemia NORTH FISHER MD May 25, 2023 14:43
[2023-05-25] MEDS ORDERED: PATIENT MAY USE OWN MEDS, ALL PO SCH (14:45)
[2023-05-25] MEDS ORDERED: MECLIZINE 25 MG TABLET PO PRN (14:45)
[2023-05-25] MEDS: NS IV 1000 ML 1,000 ML IV SCH ×4 (15:54→20:21)
[2023-05-25 15:57] VITALS: BP 144/72
[2023-05-25] MEDS ORDERED: RIVAROXABAN 20 MG TABLET PO SCH (17:00)
[2023-05-25 19:47] VITALS: BP 167/80
[2023-05-25] MEDS ORDERED: TAMSULOSIN 0.4 MG (FLOMAX) CAP PO SCH (21:00)
[2023-05-25] MEDS ORDERED: LOSARTAN 100 MG TABLET PO SCH (21:00)
[2023-05-25] MEDS ORDERED: ROSUVASTATIN 10 MG TABLET PO SCH (21:00)
[2023-05-26 03:59] VITALS: BP 140/77
[2023-05-26 05:08] LABS: HEMOGLOBIN 14.9 g/dL (13.3-17.7); MEAN PLATELET VOLUME 10.7 fL (9.0-12.2); WHITE BLOOD COUNT 5.1 10^3/uL (4.3-11.0)
[2023-05-26 05:29] LABS: POTASSIUM 4.5 MMOL/L (3.6-5.0)
[2023-05-26 05:30] LABS: CALCIUM 9.6 MG/DL (8.5-10.1)
[2023-05-26 05:34] LABS: CREATININE SERUM 1.03 MG/DL (0.60-1.30)
[2023-05-26] MEDS ORDERED: ROSU10TA28 PO ×2 (06:52)
[2023-05-26] MEDS ORDERED: CLOP75TA28 PO ×2 (06:52)
[2023-05-26] MEDS ORDERED: ASPI-1238 PO ×2 (06:52)
--- NOTE | 2023-05-26 06:53 | Discharge Inst-Post CATH ---
Discharge Inst-CATH/EP Problems Reviewed?: Yes Post Cardiac Cath/EP D/C Inst Follow Up/Plan Appointment with Dr Mullen in 2 weeks <b>CARDIAC CATH/EP PROCEDURE DISCHARGE INSTRUCTIONS</b> ACTIVITY * Go Home directly and rest. * Limit activity of the leg (or wrist if it was used) for 7 days including aerobics, swimming, jogging, bicycling, etc. * Restrict stair-climbing for 7 days if possible, if not, climb up with your non-cath leg, then bring together on the same step. * Avoid lifting, pushing, pulling or excessive movement of the affected extremity for 7 days. * Customary sexual activity may be resumed after 2 days-use caution not to use a position that strains or causes pain to the affected extremity. * No driving for 24 hours. * NO SMOKING. * Avoid straining for bowel movements for 7 days. * Gentle walking on level ground is allowed. * Returning to work will depend on the type of procedure and the results. Your doctor will discuss this with you. CALL YOUR DOCTOR FOR ANY OF THE FOLLOWING: *If bleeding from the puncture site occurs- Apply gentle pressure to site with clean cloth and call your doctor or EMS. * If a knot or lump forms under the skin, increases in size, or causes pain. * If bruising appears to be worsening or moving further down your leg instead of disappearing. * Temperature above 101 F. CARE OF YOUR GROIN INCISION; * Bruising or purple discoloration of the skin near the puncture site is common. * You may shower only, no bathtub bathing for 5 days. Be careful to avoid slipping as your leg may feel stiff. * If a closure device was used on your femoral artery, please see the attached guide regarding care of the device and your leg. * Leave dressing on FOR 24 hours. CARE OF YOUR WRIST INCISION; * Bruising or purple discoloration of the skin near the puncture site is common. * You may shower. * DO NOT submerge wrist. * Leave dressing on FOR 24 hours. NORTH MULLEN MD May 26, 2023 06:53
[2023-05-26 07:33] VITALS: BP 142/72
--- NOTE | 2023-05-26 08:35 | Cardiology Progress Note ---
Subjective Date Seen by Provider: May 26, 2023 Time Seen by Provider: 08:34 Subjective/Events-last exam Patient was seen at bedside, laying down comfortably. No new complaint Objective-Cardiology Exam Last Set of Vital Signs Vital Signs 05/26/23 05/26/23 05/26/23 07:33 07:51 08:14 Temp 36.2 Pulse 62 Resp 18 B/P (MAP) 142/72 (95) Pulse Ox 98 O2 Delivery Room Air General: Alert, Oriented X3, Cooperative HEENT: Atraumatic, PERRLA Neck: Supple, No JVD, No Thyromegaly Lungs: Clear to Auscultation, Normal Air Movement Heart: Regular Rate, Normal S1, Normal S2, No Murmurs Abdomen: Normal Bowel Sounds, Soft, No Tenderness, No Hepatosplenomegaly, No Masses Extremities: No Clubbing, No Cyanosis, No Edema, Normal Pulses, No Tenderness/Swelling Skin: No Rashes, No Breakdown, No Significant Lesion Neuro: Normal Gait, Normal Speech, Strength at 5/5 X4 Ext, Normal Tone, Sensation Intact Psych/Mental Status: Mental Status NL, Mood NL Results Lab Laboratory Tests 05/25/23 12:36 05/26/23 04:42 A/P-Cardiology Admission Diagnosis Chest pain Coronary artery disease Hypertension Hyperlipidemia Assessment/Plan Chest pain, feeling better Coronary artery disease status post stenting to the LAD, severe disease at the small diagonal artery not amendable to intervention Hypertension, continue current medication Hyperlipidemia increase Crestor Patient was educated on compliance with medications. We will arrange for follow-up as an outpatient NORTH FISHER MD May 26, 2023 08:35
[2023-05-26] MEDS: NS IV 1000 ML 1,000 ML IV SCH (08:59)
[2023-05-26] MEDS ORDERED: ROSUVASTATIN 5 MG TABLET PO SCH (09:00)
[2023-05-26] MEDS ORDERED: PANTOPRAZOLE 40 MG TABLET PO SCH (09:00)
[2023-05-26] MEDS ORDERED: ASPIRIN enteric coated 81MG TABLET PO SCH (09:00)
[2023-05-26] MEDS ORDERED: LORATADINE 10 MG TABLET PO SCH (09:00)
[2023-05-26] MEDS ORDERED: NON-FORMULARY MEDICATION 1 EA EA (Esomeprazole Magnesium (Nexium 24Hr) 20 MG) PO SCH (09:00)
[2023-05-26] MEDS ORDERED: NON-FORMULARY MEDICATION 1 EA EA (Fexofenadine HCl 180 MG) PO SCH (09:00)
[2023-05-26] MEDS ORDERED: CLOPIDOGREL 75 MG TABLET PO SCH (09:00)
== END 2023-05-26 10:20 | disposition home or self-care (01) ==
LOC: CATH 12:02 → CSD 15:37 → CATH 05-26 10:20
PROVIDERS: ATTEND Internal Medicine Cardiovascular Disease
DX: I25.10 Atherosclerotic heart disease of native coronary artery without angina pectoris (principal); E78.2 Mixed hyperlipidemia; E66.9 Obesity, unspecified; I65.23 Occlusion and stenosis of bilateral carotid arteries; Z87.891 Personal history of nicotine dependence; Z85.118 Personal history of other malignant neoplasm of bronchus and lung; Z86.718 Personal history of other venous thrombosis and embolism; Z86.711 Personal history of pulmonary embolism; Z79.01 Long term (current) use of anticoagulants; Z68.31 Body mass index [BMI] 31.0-31.9, adult
CPT/HCPCS: 71045; 80048; 80053; 80061; 81000; 85027 ×2; 85610; 85730; 87081; 93005; 93458; 93571; C1760; C1769; C1874; C1887; C1894; C9600; 36415

== ENCOUNTER 2023-05-26 10:31 | Emergency (ER) | payer MEDICARE ==
[~2023-05-26] VITALS: Ht 185 cm; Wt 106.0 kg
[~2023-05-26 10:31] MED LIST changes: +ACET-2650 PO; +ASPI-1238 PO; +CHOL10004 PO; +CLOP75TA28 PO; +ESOM20TA PO; +LACT1TAB13 PO; +LOSA100T58 PO; +MECL-291 PO; +NF-ALLE180 PO; +PROP1.5D OP; +RIVA20TA PO; +ROSU10TA28 PO; +ROSU5TAB13 PO
[2023-05-26] MEDS ORDERED: NS IV 500 ML 500 ML IV SCH (10:45)
[2023-05-26 10:58] LABS: BASOPHILS % (AUTO) 0 % (0-10)
--- NOTE | 2023-05-26 10:59 | ED General ---
General Chief Complaint: Post OP Complications/Pain Stated Complaint: DIZZINESS Source of Information: Patient Exam Limitations: No Limitations History of Present Illness Date Seen by Provider: May 26, 2023 Time Seen by Provider: 10:44 Initial Comments 82-year-old male presents to the emergency department today for dizziness. He was just discharged from the hospital and being wheeled out when he stood up to get onto the elevator and had dizziness described as the room spinning that was severe. He does have a history of dizziness and takes meclizine at home. He states 2 times over the last 2 months he had episodes of severe dizziness when he would go from lying to sitting or sitting to standing. This is similar to those episodes. Notably he was admitted to the hospital yesterday after found to have an abnormal stress test and he had a single cardiac stent placed. Denies any chest pain, shortness of breath. He does have remote history of pulmonary emboli x2 and lung cancer. He states he never had dizziness with any of his pulmonary emboli. He denies any focal weakness. He does have some nausea associated with his vertigo. He has some meclizine in his 's purse from prior episodes of dizziness and took 1 tablet just prior to coming to the emergency department. Spoke with Dr. Mullen and he request the patient be eval uated in the emergency department All other systems reviewed and negative except documented per HPI. Voice recognition software was used to help create this chart Allergies and Home Medications Allergies Coded Allergies: atorvastatin (Verified Allergy, Unknown, 01/17/19) diphenhydramine (Unverified Allergy, Unknown, SWELLING, FLUSHING, SWALLOWING PROBLEMS, 11/15/14) guaifenesin (Verified Allergy, Unknown, 01/17/19) Patient Home Medication List Home Medication List Reviewed: Yes Acetaminophen (Tylenol Arthritis) 650 Mg Tablet.er, 1,300 MG PO HS, (Reported) Entered as Reported by: ROSEMARY HOGAN on 05/25/23 1259 Aspirin (Aspirin EC) 81 Mg Tablet.dr, 81 MG PO DAILY Prescribed by: NORTH MULLEN on 05/26/23 0652 Cholecalciferol (Vitamin D3) (Vitamin D3) 25 Mcg (1000 Unit) Tablet, 25 MCG PO DAILY, (Reported) Entered as Reported by: ROSEMARY HOGAN on 05/25/23 1259 Clopidogrel Bisulfate (Clopidogrel) 75 Mg Tablet, 75 MG PO DAILY Prescribed by: NORTH MULLEN on 05/26/2352 Esomeprazole Magnesium (Nexium 24Hr) 20 Mg Tablet.dr, 20 MG PO DAILY, (Reported) Entered as Reported by: ROSEMARY HOGAN on 05/25/23 125 Fexofenadine HCl (Fexofenadine HCl) 180 Mg Tablet, 180 MG PO DAILY, (Reported) Entered as Reported by: ROSEMARY HOGAN on 05/25/231258 Lactobacillus Acidophilus (Acidophilus) 1 Billion Cell Tablet, 1 EACH PO DAILY, (Reported) Entered as Reported by: ROSEMARY HOGAN on 05/25/231258 Losartan Potassium (Losartan Potassium) 100 Mg Tablet, 100 MG PO HS, (Reported) Entered as Reported by: ROSEMARY HOGAN on 05/25/231258 Meclizine HCl (Meclizine HCl) 25 Mg Tablet, 12.5-25 MG PO TID PRN for VERTIGO, (Reported) Entered as Reported by: ROSEMARY HOGAN on 05/25/231258 Propylene Glycol (Systane Complete) 0.6 % Drops, 1 DROP OP DAILY PRN for DRY EYES, (Reported) Entered as Reported by: ROSEMARY HOGAN on 05/25/231258 Rivaroxaban (Xarelto) 20 Mg Tablet, 20 MG PO HS, (Reported) Entered as Reported by: ROSEMARY HOGAN on 05/25/231258 Rosuvastatin Calcium (Rosuvastatin Calcium) 10 Mg Tablet, 10 MG PO HS Prescribed by: NORTH MULLEN on 05/26/23651 Tamsulosin HCl (Flomax) 0.4 Mg Cap, 0.4 MG PO HS, (Reported) Entered as Reported by: ROSEMARY HOGAN on 05/25/231258 Discontinued Medications Esomeprazole Magnesium (Nexium) 20 Mg Capsule.dr, 20 MG PO DAILY, (Reported) Discontinued Reason: No Longer Taking Entered as Reported by: IDANIA LIGHT on 01/17/19 1258 Fexofenadine Hcl (Fexofenadine Hcl) 30 Mg Tablet, 30 MG PO PRN PRN for CONGESTION, (Reported) Discontinued Reason: No Longer Taking Entered as Reported by: SYBIL CABRERA on 11/20/14 1205 Lisinopril (Zestril) 5 Mg Tablet, 10 MG PO DAILY, (Reported) Discontinued Reason: No Longer Taking Entered as Reported by: SUGAR TAVERA on 11/15/14 0948 Rivaroxaban (Xarelto Tablet) 20 Mg Tablet, 20 MG PO DAILY, (Reported) Discontinued Reason: No Longer Taking Entered as Reported by: ADONAY PEARL on 11/29/17 2121 Rosuvastatin Calcium (Rosuvastatin Calcium) 5 Mg Tablet, 5 MG PO DAILY, (Reported) Entered as Reported by: ROSEMARY HOGAN on 05/25/23 1259 Tamsulosin HCl (Flomax) 0.4 Mg Cap, 0.4 MG PO BID, (Reported) Discontinued Reason: No Longer Taking Entered as Reported by: IDANIA LIGHT on 01/17/19 1258 [Allergy Shot] , UD, (Reported) Discontinued Reason: No Longer Taking Entered as Reported by: SYBIL CABRERA on 11/20/14 1205 Review of Systems Review of Systems Constitutional: see HPI Past Xorwhtf-Gfkqif-Qiofaf Hx Patient Social History Tobacco Use?: No Use of E-Cig and/or Vaping dev: No Substance use?: No Alcohol Use?: No Past Medical History Surgeries: Yes (PAROTID GLAND REMOVAL, HEMORRHOIDECTOMY, LUNG LOBECTOMY) Respiratory: No Currently Using CPAP: No Currently Using BIPAP: No Cardiac: Yes Hypertension Neurological: No Reproductive Disorders: No Sexually Transmitted Disease: No HIV/AIDS: No Gastrointestinal: No Musculoskeletal: No Endocrine: No Loss of Vision: Denies Hearing Impairment: Denies Cancer: Yes Lung Did You Recieve Any Treatments: Yes What Type of Treatment Did You: Chemotherapy, Radiation, Surgical Intervention Psychosocial: No Integumentary: No Blood Disorders: No Adverse Reaction/Blood Tranf: No Family Medical History No Pertinent Family Hx Physical Exam Vital Signs Vital Signs - First Documented 05/26/23 10:49 Temp 36.7 Pulse 55 Resp 16 B/P (MAP) 123/59 (80) Capillary Refill : Height, Weight, BMI Height: 6'1.00" Weight: 238lbs. 0.0oz. [id number]; 31.39 BMI Method:Stated General Appearance: No Apparent Distress, WD/WN HEENT: PERRL/EOMI, TMs Normal, Normal ENT Inspection, Pharynx Normal Neck: Full Range of Motion, Normal Inspection, Non Tender, Supple Respiratory: Chest Non Tender, Lungs Clear, Normal Breath Sounds, No Accessory Muscle Use, No Respiratory Distress Cardiovascular: Bradycardia Gastrointestinal: Normal Bowel Sounds, No Organomegaly, Non Tender, Soft Extremity: Normal Capillary Refill, Normal Inspection, Non Tender, No Calf Tenderness Neurologic/Psychiatric: Alert, Oriented x3, No Motor/Sensory Deficits, Normal Mood/Affect, mason liner II-XII Norm as Tested Skin: Normal Color, Warm/Dry Progress/Results/Core Measures Suspected Sepsis SIRS Temperature: Pulse: Respiratory Rate: Laboratory Tests 05/26/23 10:45: White Blood Count 7.9 Blood Pressure / Mean: Laboratory Tests 05/26/23 10:45: Creatinine 1.32H, Platelet Count 143, Total Bilirubin 1.1H Results/Orders Lab Results Laboratory Tests Test 05/26/23 10:45 Range/Units White Blood Count 7.9 4.3-11.0 10^3/uL Red Blood Count 5.00 4.30-5.52 10^6/uL Hemoglobin 15.6 13.3-17.7 g/dL Hematocrit 47 40-54 % Mean Corpuscular Volume 94 80-99 fL Mean Corpuscular Hemoglobin 31 25-34 pg Mean Corpuscular Hemoglobin Concent 33 32-36 g/dL Red Cell Distribution Width 13.2 10.0-14.5 % Platelet Count 143 130-400 10^3/uL Mean Platelet Volume 10.0 9.0-12.2 fL Immature Granulocyte % (Auto) 0 % Neutrophils (%) (Auto) 58 42-75 % Lymphocytes (%) (Auto) 30 12-44 % Monocytes (%) (Auto) 10 0-12 % Eosinophils (%) (Auto) 1 0-10 % Basophils (%) (Auto) 0 0-10 % Neutrophils # (Auto) 4.6 1.8-7.8 10^3/uL Lymphocytes # (Auto) 2.4 1.0-4.0 10^3/uL Monocytes # (Auto) 0.8 0.0-1.0 10^3/uL Eosinophils # (Auto) 0.1 0.0-0.3 10^3/uL Basophils # (Auto) 0.0 0.0-0.1 10^3/uL Immature Granulocyte # (Auto) 0.0 0.0-0.1 10^3/uL Percent Immature Platelet Fraction 4.1 0.0-7.6 % Sodium Level 136 135-145 MMOL/L Potassium Level 4.3 3.6-5.0 MMOL/L Chloride Level 105 98-107 MMOL/L Carbon Dioxide Level 24 21-32 MMOL/L Anion Gap 7 5-14 MMOL/L Blood Urea Nitrogen 22 H 7-18 MG/DL Creatinine 1.32 H 0.60-1.30 MG/DL Estimat Glomerular Filtration Rate 54 BUN/Creatinine Ratio 17 Glucose Level 121 H 70-105 MG/DL Calcium Level 10.1 8.5-10.1 MG/DL Corrected Calcium 10.1 8.5-10.1 MG/DL Total Bilirubin 1.1 H 0.1-1.0 MG/DL Aspartate Amino Transf (AST/SGOT) 84 H 5-34 U/L Alanine Aminotransferase (ALT/SGPT) 37 0-55 U/L Alkaline Phosphatase 80 40-136 U/L Total Protein 6.8 6.4-8.2 GM/DL Albumin 4.0 3.2-4.5 GM/DL My Orders Orders - KATEY SOOD DO Comprehensive Metabolic Panel (05/26/23 10:37) Ekg Tracing (05/26/23 10:37) Cbc And Automated Diff (05/26/23 10:37) Ns Iv 500 Ml (Ns Iv 500 Ml) (05/26/23 10:45) Vital Signs/I&O 05/26/23 05/26/23 10:49 11:12 Temp 36.7 Pulse 55 53 61 66 Resp 16 B/P (MAP) 123/59 (80) 121/58 (79) 118/65 (82) 141/65 (90) Capillary Refill : ECG Comment Sinus bradycardia with a rate of 47 bpm. Left axis deviation. Normal intervals. T wave inversions in lead I, aVL V45 and 6. No STEMI Departure Communication (Admissions) Patient was initially somewhat bradycardic with a rate of 47 bpm. This gradually improved during his emergency department stay. Initially had some borderline hypotension of 105 systolic as well. He was given some IV fluids and observed for about an hour and then symptoms seemingly improved as did his vital signs. His EKG is nonischemic. His labs are otherwise reassuring outside of some mild elevation in his BUN and creatinine he is not having any chest pain, shortness of breath, nothing to indicate that this is a complication from his recent cardiac stent. He is not orthostatic at this time. He will be discharged home in stable condition with close follow-up. He has had these episodes several times in the recent past. It may be related to bradycardia. Advised he discuss this further with Dr. Mullen Impression Primary Impression: Dizziness Disposition: HOME, SELF-CARE Condition: Stable Departure-Patient Inst. Referrals: TONA GODFREY MD (PCP/Family) Primary Care Physician Patient Instructions: Vertigo (a type of dizziness) Add. Discharge Instructions: Your heart rate was somewhat low when you got here which may be causing your dizziness however it is unclear if this correlates or not. I recommend you increase your fluids at home, rest and follow-up with Dr. Mullen for discussion if your symptoms persist. Return to the emergency department immediately if you develop any chest pain, shortness of breath, weakness of your arms or legs or if your symptoms change in any way otherwise concerning to you. KATEY SOOD DO May 26, 2023 10:59
[2023-05-26 11:00] LABS: EOSINOPHILS # (AUTO) 0.1 10^3/uL (0.0-0.3); EOSINOPHILS % (AUTO) 1 % (0-10); HEMATOCRIT 47 % (40-54); HEMOGLOBIN 15.6 g/dL (13.3-17.7); LYMPHOCYTES # (AUTO) 2.4 10^3/uL (1.0-4.0); LYMPHOCYTES % (AUTO) 30 % (12-44); MEAN CORPUSCULAR HEMOGLOBIN 31 pg (25-34); MEAN CORPUSCULAR HGB CONC 33 g/dL (32-36); MEAN CORPUSCULAR VOLUME 94 fL (80-99); MONOCYTES # (AUTO) 0.8 10^3/uL (0.0-1.0); MONOCYTES % (AUTO) 10 % (0-12); NEUTROPHILS # (AUTO) 4.6 10^3/uL (1.8-7.8); NEUTROPHILS % (AUTO) 58 % (42-75); PLATELET COUNT 143 10^3/uL (130-400); WHITE BLOOD COUNT 7.9 10^3/uL (4.3-11.0)
[2023-05-26 11:12] VITALS: BP_SYST 118; BP_SYST 121; BP_SYST 141; BP_DIAS 58; BP_DIAS 65
[2023-05-26 11:15] LABS: POTASSIUM 4.3 MMOL/L (3.6-5.0)
[2023-05-26 11:16] LABS: CALCIUM 10.1 MG/DL (8.5-10.1)
[2023-05-26 11:17] LABS: TOTAL PROTEIN 6.8 GM/DL (6.4-8.2)
[2023-05-26 11:19] LABS: BILIRUBIN,TOTAL 1.1 MG/DL (0.1-1.0)
[2023-05-26 11:21] LABS: CREATININE SERUM 1.32 MG/DL (0.60-1.30)
[2023-05-26 12:05] VITALS: BP 128/63
== END 2023-05-26 12:05 | disposition home or self-care (01) ==
LOC: EDUNIT# 10:31 → ER 10:32
DX: R42 Dizziness and giddiness (principal); R11.0 Nausea; I95.9 Hypotension, unspecified
CPT/HCPCS: 36415; 80053; 85025; 93005; 96360

== ENCOUNTER → 2023-06-27 | Outpatient (CLI) | payer MEDICARE ==
[~2023-06-27] MED LIST changes: +HOLD METFORMIN - RECEIVED CONTRAST 20 ML VIAL IV SCH; +IOHEXOL 350 MG/ML 100 ML (OMNIPAQUE 350) VIAL IV ONE; +NS 100 ML (IVPB) BAG IV ONE
--- NOTE | 2023-06-27 12:49 | Diagnostic Imaging Report ---
PROCEDURE: CT angiography of the head and CT angiography of the neck with and without contrast. TECHNIQUE: Contiguous noncontrast images were obtained from the skull base through the vertex. After intravenous contrast administration, helical CT angiography of the neck was performed. Source data was reformatted into 3D MIP projections. Delayed post contrast acquisition was also obtained. Auto Exposure Controls were utilized during the CT exam to meet ALARA standards for radiation dose reduction. INDICATION: Syncopal episode and collapse. FINDINGS: Precontrast imaging through the brain demonstrates the ventricles and sulci to be appropriate for the patient's age. No sulcal effacement or midline shift is identified. No acute intra-axial or extra-axial hemorrhage is detected. The cisterns are patent. The visualized paranasal sinuses are clear. The delayed post contrast images through the brain are without evidence of an enhancing lesion. The CT angiographic portion of the study does show suboptimal opacification of the arterial system. There are numerous collateral vessels throughout the posterior chest as well as along the soft tissues of the neck and cervical spine, likely owing to a venous stenosis or occlusion. The bolus injection appeared to be via the left upper extremity. 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 This does compromise the study due to overall changes in bolus timing. There does appear to be a three-vessel branching pattern to the aortic arch. Both the right and left common carotid arteries are patent. The carotid bifurcations are unremarkable. The right and left internal carotid arteries appear patent. The vertebral arteries are codominant and widely patent. The basilar artery is patent. The posterior cerebral, anterior cerebral, and the right and left middle cerebral arteries are widely patent. No thromboembolism or large vessel occlusion is detected. IMPRESSION: Somewhat compromised study for reasons stated above. 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 No definite carotid stenosis or intracranial abnormality is detected. Dictated by: Dictated on workstation # [id number]
== END ==
LOC: RAD 09:52
PROVIDERS: ATTEND Internal Medicine Cardiovascular Disease
DX: R55 Syncope and collapse (principal)
CPT/HCPCS: 70496; 70498